=== PATIENT | female | born 1945 | race Caucasian/White ===

== ENCOUNTER 2021-06-24 08:31 | Outpatient (REF) | payer MEDICARE, SELFPAY | END 2021-06-24 08:32 | disposition home or self-care (01) | LOC: HO.HOSX 08:31 | PROVIDERS: Visit Provider Orthopaedic Surgery | DX: Z13.89 Encounter for screening for other disorder (principal) ==

== ENCOUNTER → 2021-06-29 14:54 | Outpatient (BNVA) | payer MEDICARE, OTHER, SELFPAY | PROVIDERS: PCP Family Medicine; Visit Provider Internal Medicine | DX: M79.18 Myalgia, other site (principal); S46.811A Strain of other muscles, fascia and tendons at shoulder and upper arm level, right arm, initial encounter; M47.816 Spondylosis without myelopathy or radiculopathy, lumbar region | CPT/HCPCS: 20553 ==

== ENCOUNTER → 2021-10-09 15:54 | Outpatient (BNVA) | payer MEDICARE, OTHER, SELFPAY | PROVIDERS: PCP Family Medicine; Visit Provider Nurse Practitioner Family | DX: M79.18 Myalgia, other site (principal); S46.811A Strain of other muscles, fascia and tendons at shoulder and upper arm level, right arm, initial encounter; M47.816 Spondylosis without myelopathy or radiculopathy, lumbar region | CPT/HCPCS: 20552; 99212 ==

== ENCOUNTER → 2021-12-28 15:24 | Outpatient (BNVA) | payer MEDICARE, OTHER, SELFPAY | PROVIDERS: PCP Family Medicine; Visit Provider Internal Medicine | DX: M47.816 Spondylosis without myelopathy or radiculopathy, lumbar region (principal); M47.812 Spondylosis without myelopathy or radiculopathy, cervical region | CPT/HCPCS: 99212 ==

== ENCOUNTER 2024-08-01 13:03 | Outpatient (AMB) | payer MEDICARE, OTHER, SELFPAY ==
--- NOTE | 2024-08-01 13:53 | MHC.OFFVIS ---
Intake Visit Reasons: FC- Right wrist fx DOI 07/23/24 Intake Note: Benjamin 79 year old left hand dominant female presents today for a new patient visit for her right hand pain. States on 07/22/24 she slipped on ice and fell in an out stretched position. She was seen at [facility] Ed after the injury and then was later seen at [facility] where she was placed in a short arm cast after in office reduction. She was told that she would need surgery for the wrist but she is not interested in surgical intervention. Allergies No Known Allergies Allergy (Verified 08/01/24 13:59) HPI HPI FC- Right wrist fx DOI 07/23/24: Details: Benjamin is a 79 year old right hand dominant woman who presents for a right distal radius fracture, S/P fall on ice, DOI: 07/23/24. She was seen at [facility] ED and placed in a wrist splint, then was seen at [facility] where her wrist was reduced twice, and placed in a wrist cast. She says she is here for a second opinion as she was told at [facility] that she would need surgery, but she does not want surgery. She complains of some pain in her hand, along with stiffness in her fingers. She has hand osteoarthritis which makes it somewhat difficult to move her small finger. She says she cares for her disabled at home. COUNT INCLUDES THE [facility] Medical History (Updated 08/01/24 @ 13:59 by Arthur Sullivan) Lumbar spondylosis Review of Systems Const All systems reviewed & are unremarkable except as noted in HPI and below Physical Exam Const General: cooperative, healthy appearing and no acute distress Orientation/consciousness: patient oriented x3 HEENT Head: Yes normocephalic and Yes atraumatic Eyes EOM: EOMs intact bilaterally Resp Effort & Inspection: normal respiratory effort and able to speak in complete sentences Cardio Jugular venous distension: no JVD Skin General skin exam: turgor normal Rashes: no rashes Neuro General: patient oriented x3 Extrem Other: Evaluation of Right Upper Extremity: The patient is alert, oriented, and in no acute distress She is in a molded short-arm cast, which was placed at [facility] after their surgeon performed a closed reduction. Neuro: sensation is normal to the tips of all digits Vascular: Cap refill brisk ROM: With encouragement, she can make a weak fist and extend all her digits, except for her small finger which is limited due to her PIP arthritis The cast is clean dry and intact Radiographs: 3 views of the right wrist were taken and viewed by me today in clinic. They show a distal radius fracture with some shortening and loss of inclination on the AP view & ~20 degrees apex volar angulation seen on the lateral view. There is some evidence of interval bony healing. . Psych Appearance: grossly normal Affect: normal affect Attitude: cooperative Assessment & Plan Assessment & Plan (1) Fracture of right distal radius: Code(s): S52.501A - Unspecified fracture of the lower end of right radius, initial encounter for closed fracture Category: Medical Plan Assessment & Plan: 1. Right distal radius fracture, From a fall, DOI: 07/23/24 Reduced at [facility] I educated her about this condition I discussed operative and non-operative treatment options. At this point her fracture is 2 weeks old, and as of next week she would require a corrective osteotomy as opposed to an ORIF. She is not interested in surgery at this time as she cares for her disabled I recommend she remain in her cast and manage this non-operatively. I discussed the importance of maintaining her finger ROM while in her cast, she should work on ROM exercises 20x daily. She expressed understanding She is to lift nothing heavier than a cellphone for the next 4 weeks She should continue to follow with [facility] for management of her fracture. She can follow up with me prn Scribed for Rossana Banegas MD by Arthur Sullivan, medical chemist, on 08/01/24 at 3:00 PM, EST. Orders: Orders XR wrist RT min 3V Today M25.531 - Pain in right wrist Coding Level of Care Code New Pt Level 4 (95430) Diagnoses Fracture of right distal radius S52.501A
--- OUTSIDE RECORDS SUMMARY | 2024-08-01 14:27 | XMS_ITS | Clinical Summary ---
Author Organization [facility] Address [address] [place] [address] Phone Care Team Providers Care Shopping Inspector Name Role Phone Jimbo Hopkins Primary Care Provider [phone] Allergies No known active allergies Medications oxyCODONE (OXY-IR) 5 mg immediate release capsule Take 1 capsule (5 mg total) by mouth every 6 (six) hours if needed for severe pain. Max Daily Amount: 20 mg 30 capsule 5 Active acetaminophen (Tylenol Extra Strength) 500 mg tablet Take 1 tablet (500 mg total) by mouth every 6 (six) hours if needed for mild pain for up to 10 days. 30 tablet 5 08/03/19 25 Active ibuprofen (ADVIL,MOTRIN) 800 mg tablet Take 1 tablet (800 mg total) by mouth 3 (three) times a day. 90 each 5 08/24/19 25 Active oxyCODONE (OXY-IR) 5 mg immediate release capsule Take 1 capsule (5 mg total) by mouth every 6 (six) hours if needed for severe pain. Max Daily Amount: 20 mg 12 capsule 5 07/24/19 25 Discontinued Encounters Date Type Department Care Team Description 07/31/2024 1:45 PM EST Office Visit Orthopedic Surgery [facility] [address] [facility] [address] [place] [phone] Presley Pandey MD Follow-up exam (Primary Dx); Closed extra-articular fracture of distal end of right radius with malunion, subsequent encounter 07/24/2024 11:30 AM EST Office Visit Orthopedic Surgery [facility] [address] [facility] [address] [place] [phone] Presley Pandey MD Right wrist pain (Primary Dx); Closed fracture of right distal radius and ulna, initial encounter 07/23/2024 1:56 AM EST - 07/23/2024 7:08 AM EST Emergency [facility] Emergency [address] [place] [phone] Glenroy Palacio MD Closed fracture of right wrist, initial encounter (Primary Dx) Discharge Disposition: Home or Self Care 07/23/2024 Telephone Orthopedic Surgery [facility] [address] [facility] [address] [place] [phone] [facility] 06/25/2024 2:24 PM EST - 06/25/2024 11:59 PM EST Hospital Encounter [facility] at [address] [phone] Breast calcification, right Discharge Disposition: Home or Self Care 06/04/2024 1:47 PM EST - 06/04/2024 11:59 PM EST Hospital Encounter [facility] [address] [phone] Encounter for screening mammogram for breast cancer Discharge Disposition: Home or Self Care from Last 3 Months Social History Tobacco Use Types Packs/Day Years Used Date Smoking Tobacco: Never Assessed Comments No Sex and Gender Information Value Date Recorded Sex Assigned at Female 05/28/2024 11:43 AM EST Legal Sex Female 10:13 AM EST Gender Identity Female 05/28/2024 11:43 AM EST Sexual Orientation Straight 05/28/2024 11 :43 AM EST Obstetrics History Para Term AB IAB SAB Ectopic Multiple Livin g Live Births 1 Last Filed Vital Signs Vital Sign Reading Time Taken Comments Blood Pressure 167/74 07/23/2024 1:43 AM EST Pulse 90 07/23/2024 1:43 AM EST Temperature 36.3 ??C (97.3 ??F) 07/23/2024 1:43 AM ES T Respiratory Rate 18 07/23/2024 1:43 AM EST Oxygen Saturation 97% 07/23/2024 1:43 AM EST Inhaled Oxygen Concentration - - Weight 66.7 kg (147 lb) 07/31/2024 1:37 PM EST Height 170.2 cm (5' 7.01 ) 07/31/2024 1:37 PM ES T Body Mass Index 23.02 07/31/2024 1:37 PM EST Plan of Treatment Upcoming Encounters Date Type Department Care Team (Late st Contact Info) Description 08/07/2024 4:00 PM EST Office Visit Orthopedic Surgery - [place] [address] [facility] [address] [place] [phone] Presley Pandey MD [address] [facility] [address] [place] [address] Health Maintenance Due Date Last Done Comments DTaP,Tdap,and Td Vaccines (1 - Tdap) 1964 Pneumococcal Vaccine: 50+ Years (2 of 2 - PPSV23) 06/27/2015 05/02/2015 Zoster Vaccines (2 of 3) 04/29/2016 03/04/2016 RSV Immunization Patients 60 + Years Old (1 - 1-dose 75+ series) 2021 Cholesterol Screening (Lipid Panel) 05/23/2022 Depression Screening 05/23/2022 Falls Risk Assessment 05/23/2022 Hepatitis C Screening 05/23/2022 Medicare Annual Wellness Visit 05/23/2022 Osteoporosis Screening (Bone Density Screening) 05/23/2022 Social Influencers of Health Screening 05/23/2022 COVID-19 Vaccine (3 - 2023-2 5 season) 2024 05/29/2021, 11/05/2020 Influenza Vaccine (#1) 2024 3, 03/12/2011 HIB Vaccines Aged Out No longer eligi ble based on patient's age to complete this topic HPV Vaccines Aged Out No longer eligi ble based on patient's age to complete this topic Hepatitis A Vaccines Aged Out No long er eligible based on patient's age to complete this topic Hepatitis B Vaccines Aged Out No long er eligible based on patient's age to complete this topic IPV Vaccines Aged Out No longer eligi ble based on patient's age to complete this topic MMR Vaccines Aged Out No longer eligi ble based on patient's age to complete this topic Meningococcal ACWY Vaccine Aged Out N o longer eligible based on patient's age to complete this topic Meningococcal B Vacine Aged Out No lo nger eligible based on patient's age to complete this topic RSV Immunization Patients Under 20 months Aged Out No longer eligible b ased on patient's age to complete this topic Varicella Vaccines Aged Out No longer eligible based on patient's age to complete this topic Procedures Procedure Name Priority Date/Time Associated Diagnosis Comments CAST APPLICATION Routine 07/31/2024 5:06 PM EST Closed extra-articular fracture of distal end of right radius with malunion, subsequent encounter XR WRIST 3+ VIEWS RIGHT Routine 07/31/2024 1:43 PM EST Follow-up exam CAST APPLICATION Routine 07/24/2024 1:16 PM EST Closed fracture of right distal radius and ulna, initial encounter XR WRIST 3+ VIEWS RIGHT Routine 07/24/2024 12:44 PM EST Right wrist pain XR WRIST 3+ VIEWS RIGHT Routine 07/24/2024 11:32 AM EST Right wrist pain HC TREATMENT FRACTURE W/MANIPULATION Routine 07/23/2024 6:26 AM EST AL CLOSED TX DISTAL RADIUS FRACTURE/EPIPHYSEAL SEPARATION W/ MANIPULATION Routine 07/23/2024 6:[address] HEAD WO CONTRAST STAT 07/23/2024 3 :24 AM EST XR WRIST 3+ VIEWS RIGHT STAT 07/23/2024 1:57 AM EST MG MAMMO DIAGNOSTIC ADDL VIEWS RIGHT Routine 06/25/2024 3:12 PM EST Breast calcification, right MG MAMMO DIGITAL SCREENING W ASTON BILAT Routine 06/04/2024 2:11 PM EST Encounter for screening mammogram for breast cancer from Last 3 Months Results * Casting (07/31/2024 5:06 PM EST) Presley Farah MD - 07/31/2024 5:06 PM EST Presley Pandey MD ? 07/31/2024 ??5:08 PM Casting Date/Time: 07/31/2024 5:06 PM Performed by: Presley Pandey MD Authorized by: Presley Pandey MD Consent given by: patient Timeout: Immediately prior to procedure a time out was called to verify the correct patient, procedure, equipment, sales support associate and site/side marked as required Injury Location details: right wrist Fracture type: distal radial fracture ?? Pre-procedure assessment Distal perfusion: normal ?? Distal sensation: normal ?? Range of motion: reduced ?? Procedure Manipulation performed? manipulation performed (3 point mold and axial traction) Immobilization: cast Cast type: short arm Post-procedure assessment Distal perfusion: normal Distal sensation: normal Range of motion: unchanged Patient tolerance: patient tolerated the procedure well with no immediate complications Presley Pandey MD IN CLINIC/BEDSIDE ORDERABLES Fin al Result * XR Wrist 3+ Views Right (07/31/2024 1:43 PM EST) Only the most recent of4 resultswithin the time period is included. Anatomical Region Laterality Modality Upper Extremities, Wrist Right Compute d Radiography Narrative 07/31/2024 4:57 PM EST Three-view x-ray of the right wrist shows previously visualized distal radius fracture with dorsal comminution, there is interval dorsal angulation in the cast with approximately 25 degrees of dorsal angulation increased from 13 degrees of dorsal angulation. ??There is previously visualized ulnar styloid fracture, no other fractures appreciated. ??Cast material obscures fine osseous detail. Repeat x-rays in a new cast show a improved mold but there is persistent 21 degrees of dorsal angulation. Impression: Extra-articular distal radius fracture with increased dorsal angulation from radiographs obtained 07/24/2024 us Presley Pandey MD IMG XR PROCEDURES Final Result * Casting (07/24/2024 1:16 PM EST) Presley Farah MD - 07/24/2024 1:16 PM EST Presley Pandey MD ? 07/24/2024 ??5:00 PM Casting Date/Time: 07/24/2024 1:16 PM Performed by: Presley Pandey MD Authorized by: Presley Pandey MD Consent given by: patient Injury Location details: right forearm Pre-procedure assessment Distal perfusion: normal ?? Distal sensation: normal ?? Range of motion: reduced ?? Procedure Manipulation performed? manipulation performed Immobilization: cast Cast type: short arm Supplies used: Ortho-Glass Post-procedure assessment Distal perfusion: normal Distal sensation: normal Range of motion: improved Patient tolerance: patient tolerated the procedure well with no immediate complications us Presley Pandey MD IN CLINIC/BEDSIDE ORDERABLES Fin al Result * AL CLOSED TX DISTAL RADIUS FRACTURE/EPIPHYSEAL SEPARATION W/ MANIPULATION, HC TREATMENT FRACTURE W/MANIPULATION (07/23/2024 6:26 AM EST) Glenroy Stokes MD - 07/23/2024 6:26 AM EST Glenroy Palacio MD ? 07/23/2024 ??6:27 AM Orthopedic Injury Treatment - Fracture Date/Time: 07/23/2024 6:26 AM Performed by: Glenroy Palacio MD Authorized by: Glenroy Palacio MD ?? Consent: ??Consent obtained: ??Verbal ??Consent given by: ??Patient ??Risks, benefits, and alternatives were discussed: yes ?Risks discussed: ??Pain and nerve damage [place] protocol: ??Procedure explained and questions answered to patient or proxy's satisfaction: yes ?Imaging studies available: yes ?Site/side marked: yes ?Immediately prior to procedure, a time out was called: yes ?Patient identity confirmed: ??Verbally with patient and arm band Injury: ??Injury location: ??Forearm ??Forearm injury location: ??R forearm ??Forearm fracture type: distal radial ?? Pre-procedure details: ??Distal neurologic exam: ??Normal ??Distal perfusion: distal pulses strong ?Range of motion: reduced ?? Sedation: ??Sedation type: ??None Anesthesia: ??Anesthesia method: ??Local infiltration ??Local anesthetic: ??Lidocaine 1% w/o epi Procedure details: ??Manipulation performed: yes ?Skin traction used: no ?Skeletal traction used: yes ?Pin inserted: no ?Reduction successful: yes ?X-ray confirmed reduction: no ?Supplies used: ??Fiberglass Post-procedure details: ??Distal neurologic exam: ??Normal ??Distal perfusion: brisk capillary refill ?Range of motion: not applicable ?Procedure completion: ??Tolerated well, no immediate complications us Glenroy Palacio MD IN CLINIC/BEDSIDE ORDERABLES Fi nal Result * CT Head wo Contrast (07/23/2024 3:24 AM EST) Anatomical Region Laterality Modality Head and Neck Computed Tomogra phy 07/23/2024 3:43 AM EST Impressions 07/23/2024 3:43 AM EST 1. No acute intracranial findings. This document has been electronically signed by: Kristian Adler MD on 07/23/2024 03:43:15 Narrative 07/23/2024 3:[address] head without contrast Comparison: None Findings: No intra-axial mass, midline shift, hydrocephalus, or acute hemorrhage. Moderate atrophy like change. The visualized paranasal sinuses and mastoid air cells are normal. The orbits are unremarkable. There is no acute fracture. Procedure Note Kristian Adler MD - 07/23/2024 CT head without contrast Comparison: None Findings: No intra-axial mass, midline shift, hydrocephalus, or acute hemorrhage. Moderate atrophy like change. The visualized paranasal sinuses and mastoid air cells are normal. The orbits are unremarkable. There is no acute fracture. IMPRESSION: 1. No acute intracranial findings. This document has been electronically signed by: Kristian Miller MD on 07/23/2024 03:43:15 us Glenroy Palacio MD IMG CT PROCEDURES Final Result * MG Mammo Diagnostic Addl Views Right (06/25/2024 3:12 PM EST) Anatomical Region Laterality Modality Breast Right Mammography 06/25/2024 3:09 PM EST Impressions 06/25/2024 3:16 PM EST Probably benign tightly grouped coarse calcifications right breast. ?? Probably benign calcifications should be reexamined in 6 months with diagnostic right mammography including spot magnified views Findings and recommendations were relayed to the patient on the day of the exam ASSESSMENT: ?? BI-RADS 3: PROBABLY BENIGN RECOMMENDATION(S): 1: Special mammographic view(s) needed RIGHT in 6 months. -------- FINAL REPORT -------- Dictated By: Ifeanyi Everett Dictated Date: 06/25/2024 15:09 ET Assigned Physician: Ifeanyi Everett Reviewed and Electronically Signed By: Ifeanyi Everett Signed Date: 06/25/2024 15:16 ET Workstation ID: [id number] Transcribed By: Self Edit Transcribed Date: 06/25/2024 15:09 ET Narrative 06/25/2024 3:16 PM EST EXAM: ??DIAGNOSTIC MAMMOGRAPHY, UNILATERAL RIGHT HISTORY: ??Abnormal screening mammogram. ??Incompletely characterized calcifications right breast. COMPARISON: ??Right mammography 06/04/2024, 05/30/2023, 05/21/2022, 05/18/2021, 05/14/2020 TECHNIQUE: Spot magnified views of the right breast in multiple projections ADDITIONAL IMAGING: None Computer aided detection was not utilized. TISSUE DENSITY: The breasts are heterogeneously dense, which may obscure small masses. (BI-RADS category C) FINDINGS: RIGHT BREAST: There are tightly grouped coarse calcifications in the 10 o'clock position 6 cm from the right nipple. ??There have been calcifications in this area on multiple previous studies. ??There is no associated distortion or suspicious mass. There are no branching forms. Procedure Note Ifeanyi Everett MD - 06/25/2024 EXAM: DIAGNOSTIC MAMMOGRAPHY, UNILATERAL RIGHT HISTORY: Abnormal screening mammogram. Incompletely characterizedcalcifications right breast. COMPARISON: Right mammography 06/04/2024, 05/30/2023, 05/21/2022,05/18/2021, 05/14/2020 TECHNIQUE: Spot magnified views of the right breast in multipleprojections ADDITIONAL IMAGING: None Computer aided detection was not utilized. TISSUE DENSITY: The breasts are heterogeneously dense, which may obscuresmall masses. (BI-RADS category C) FINDINGS: RIGHT BREAST: There are tightly grouped coarse calcifications in the 10 o'clock position6 cm from the right nipple. There have been calcifications in this areaon multiple previous studies. There is no associated distortion orsuspicious mass. There are no branching forms. IMPRESSION: Probably benign tightly grouped coarse calcifications right breast. Probably benign calcifications should be reexamined in 6 months withdiagnostic right mammography including spot magnified views Findings and recommendations were relayed to the patient on the day of theexam ASSESSMENT: BI-RADS 3: PROBABLY BENIGN RECOMMENDATION(S): 1: Special mammographic view(s) needed RIGHT in 6 months. -------- FINAL REPORT -------- Dictated By: Ifeanyi Everett Dictated Date: 06/25/2024 15:09 ET Assigned Physician: Ifeanyi Everett Reviewed and Electronically Signed By: Ifeanyi Everett Signed Date: 06/25/2024 15:16 ET Workstation ID: [id number] Transcribed By: Self Edit Transcribed Date: 06/25/2024 15:09 ET Jimbo Hopkins DO IMG BI PROCEDURES Final Result * (ABNORMAL) MG Mammo Digital Screening w Saton bilat (06/04/2024 2:11 PM EST) Anatomical Region Laterality Modality Breast Bilateral Mammography 06/06/2024 12:4 2 PM EST Impressions 06/06/2024 12:53 PM EST Increasing calcifications in the right upper outer breast. ??Additional imaging recommended. BI-RADS CATEGORY: 0 - INCOMPLETE - NEED ADDITIONAL IMAGING EVALUATION RECOMMENDATION: Additional right breast imaging recommended. ?? Mammo Location: [facility], [address] [place] [address], [id number], . -------- FINAL REPORT -------- Dictated By: HARJIT BARKLEY Dictated Date: 06/06/2024 12:42 ET Assigned Physician: HARJIT BARKLEY Reviewed and Electronically Signed By: HARJIT BARKLEY Signed Date: 06/06/2024 12:53 ET Workstation ID: [id number] Transcribed By: Self Edit Transcribed Date: 06/06/2024 12:42 ET Narrative 06/06/2024 12:53 PM EST CLINICAL: 79 years old, Female, routine annual exam. COMPARISON: 05/30/2023 through 05/14/2020 ?? TECHNIQUE: Bilateral MLO and CC views were obtained digitally with 3-D mammogram (digital breast tomosynthesis). Computer-aided detection was utilized in evaluation of this exam (CAD). FINDINGS: There is no evidence of suspicious mass or architectural distortion. ??Calcifications are identified in the upper outer quadrant of the right breast. ??These have increased as compared to studies dating back to 2019. ??Spot magnification views and a full field true lateral is recommended of the right breast. The left breast is mammographically stable. BREAST DENSITY: C - The breasts are heterogeneously dense which may obscure small masses. Procedure Note Harjit Barkley MD - 06/06/2024 CLINICAL: 79 years old, Female, routine annual exam. COMPARISON: 05/30/2023 through 05/14/2020 TECHNIQUE: Bilateral MLO and CC views were obtained digitally with 3-Dmammogram (digital breast tomosynthesis). Computer-aided detection wasutilized in evaluation of this exam (CAD). FINDINGS: There is no evidence of suspicious mass or architectural distortion.Calcifications are identified in the upper outer quadrant of the rightbreast. These have increased as compared to studies dating back to 2019.Spot magnification views and a full field true lateral is recommended ofthe right breast. The left breast is mammographically stable. BREAST DENSITY: C - The breasts are heterogeneously dense which mayobscure small masses. IMPRESSION: Increasing calcifications in the right upper outer breast. Additionalimaging recommended. BI-RADS CATEGORY: 0 - INCOMPLETE - NEED ADDITIONAL IMAGING EVALUATION RECOMMENDATION: Additional right breast imaging recommended. Mammo Location: [facility], [address] [place] [address], [id number], . -------- FINAL REPORT -------- Dictated By: HARJIT BARKLEY Dictated Date: 06/06/2024 12:42 ET Assigned Physician: HARJIT BARKLEY Reviewed and Electronically Signed By: HARJIT BARKLEY Signed Date: 06/06/2024 12:53 ET Workstation ID: [id number] Transcribed By: Self Edit Transcribed Date: 06/06/2024 12:42 ET us Self Referral Sppl IMG BI PROCEDURES Final Resul t from Last 3 Months Insurance MEDICARE [facility] Care Teams Shopping Inspector Relationship Specialty Start Date End Date Jimbo Hopkins DO [address] [place] [address] PCP - General Family Medicine 05/28/24
--- OUTSIDE RECORDS SUMMARY | 2024-08-01 14:27 | XMS_ITS | Data Portability ---
Author Organization [place] [facility] Address [address] [place] [phone] Care Team Providers Care Lumber Piler Operator Name Role Phone GRANT GRAVES Primary Care Provider [phone] Assessment Encounter Date Assessment Date Assessment LastModified by Organization Details LastModified Time 07/12/2021 07/12/2021 Ms. Zimmerman is a 76 yr old female new to , who was in her usual state of good health until about a week ago she began having left frontal sinus pain, some congestion feeling but unable to blow out any mucous, She also began having intermittent left ear pain that became more consistent abut 5 days ago, has a cough, dry, and now has had a fever with chills. She has been vaccinated and received a booster for COVID already. She has not had any known exposures. DDX includes but is not limited to: Pneumonia, a possibility, with a dry cough, and temperature of 101, we will order xray and she will set up with [facility] to r/o pneumonia. Sinusitis, is a possibility, although she has been symptomatic for only a week, she has left frontal and maxillary sinus tenderness to palpation. There are no scalp / facial lesions to suggest Shingles, however I did check thoroughly for signs of rash to scalp, face, and external nose and ear. none were present. She did have a dull erythematous left TM suggestive of Otitis media and will take Augmentin 875 BID, along with Mucinex 1200 mg BID . A Covid test was done (PCR), she will sign up for portal to check results and was advised we will call her only if a positive result. She is to rest, tylenol for fever, Time On Scene with Patient: 00:28:43 [email or web address] Not available 07/12/2021 12:19:07 Plan of Treatment Reminders Order Date Submit Date Provider Last Modified By Organization Details Last Modified Time Details Appointments None recorded. Lab unlisted lab - covid-19 (novel coronavirus ) PCR 2021 [facility], [address], [place], [address], 17:39:56 Referral None recorded. Procedures None recorded. Surgeries None recorded. Imaging XR, chest, 2 view - r/o pneumonia, fever 101. cough 2021 [facility] ([facility] [employer]), [address], [place], [address], 22:18:57 Medication Orders benzonatate 200 mg capsule 2021 [facility], [address] [place], [address], 12:20:01 benzonatate 200 mg capsule 2021 [facility], [address] [place], [address], 12:19:59 amoxicillin 875 mg-potassiu m clavulanate 125 mg tablet 2021 [facility], [address] [place], [address], 11:49:18 Patient TargetsNo targets recorded. Patient InstructionsNo instructions recorded. Reason for Referral None Reported. Results Created Date Observation Date Name Description Value Unit Range Abnormal Flag Note LastModifiedBy Organization Detail LastModifiedTime 07/12/1907/15/20212018 NOVEL CORON AVIRU S, PCR covid-19, PCR NOT DETEC DHRUV Refer ence range : NOT DETEC DHRUV (NOTE ) A Not Detec dhruv resul t means that SARS- CoV-2 RNA was not prese nt in the speci men above the limit of detec tion. A Not Detec dhruv resul t does not rule out the possi bilit y of COVID -19 and shoul d not be used as the sole basis for treat ment or patie nt manag ement decis ions. If COVID -19 is still suspe cted, based on expos ure histo ry toget her with other clini bear findi ngs, re-te sting shoul d be consi dered in the curtis xt of clini bear obser vatio ns and epide miolo gical data for patie nt manag ement decis ions. = Test Metho d: Nucle ic Acid Ampli ficat ion Test inclu ding rever se trans cript ion polym erase chain react ion (RT-P CR) and trans cript ion media dhruv ampli ficat ion (TMA) . The test metho d meets the [place] Cente rs for Disea se Contr ol and preve ntion ([facility]) pre depar ture and arriv al requi remen t for viral test for COVID -19 dated 2020. Testi ng requi remen ts for everardo lockhart october dela cruz e with time. The patie nt is respo nsibl e for deter minin g the test requi remen ts for each natio n while they are travcharo ling. This test has been autho rized by the FDA under an Emerg ency Use Autho rizat ion (EUA) for use by autho rized labor atori es. = Pleas e revie w the Fact Sheet s and FDA autho rized label ing avail able for healt h care provi ders and patie nts using the follo wing websi diana: https ://marie w.que stdia gnost ics.c om/ho me/Co vid-1 9/HCP /Ques tIVD/ fact- sheet .html https ://marie w.que stdia gnost ics.c om/ho me/Co vid-1 9/Pat ients / [facility] IVD/f act-s heet. html = Due to the curre nt publi c healt h emerg ency, [facility] Diagn ostic s is accep ting sampl es from appro priat e clini bear sourc es colle cted using wide varie ty of swabs and trans port media for COVID -19. Not detec dhruv test resul ts deriv ed from speci mens recei clementina in non- comme rcial ly manuf actur ed viral colle ction kits or those not yet autho rized by FDA for COVID -19 testi luisa montiel d be cauti ously evalu ated and take extra preca ution s such as addit ional clini bear monit oring , inclu ding colle ction of an addit ional speci men. = Addit ional infor matsavanna n about COVID -19 can be found at the [employer] ostic s websi te: www.alike uestD [employer]/ Covid 19. Test Perfo rmed by: [employer], [address], [place]. [address] . Labor atory Direc tor: Dian ramirez MD. Not Available [facility] [address], [place], [address], 07/16/2021 00:03:28 07/15/19 22 XR, chest , 2 view No observ ation record ed. [place] [address] [facility] [facility] [employer]) [address] [place], [address], 07/16/2021 17:56:20 Result Notes None recorded. Procedures Surgical History None recorded. Imaging Results Imaging Date Name Status LastModified by Organiz ation Details LastModified Time 07/15/2021 XR, chest, 2 view completed [email or web address] [employer] [facility] ([facility] [employer]) [address] [place], [address], 07/16/2021 17:56:20 Procedure Notes None recorded. Medical Equipment None Reported. Allergies No known drug allergies Medications Name Sig Start Date Stop Date Status Note LastModified by Organization Details LastModified Time tizanidine 2 mg tablet active Not Available Not Available Not Available benzonatate 200 mg capsule Take 1 capsule 3 times a day by oral route as directed for 5 days. active Not Available Not Available No t Available amoxicillin 875 mg tablet active Not Available Not Available Not Available prednisolon e acetate 1 % eye drops,suspe nsion active Not Available Not Available Not Available estradiol 1 mg tablet active Not Available Not Available No t Available temazepam 30 mg capsule active Not Available Not Available Not Available omeprazole 20 mg capsule,del ayed release active Not Available Not Available Not Available lorazepam 1 mg tablet active Not Available Not Available No t Available estradiol 0.01% (0.1 mg/gram) vaginal cream active Not Available Not Available Not Available amoxicillin 875 mg-potassiu m clavulanate 125 mg tablet Take 1 tablet every 12 hours by oral route as directed for 7 days. active Not Available Not Available No t Available Ventolin HFA 90 mcg/actuati on aerosol inhaler active Not Available Not Available Not Available rosuvastati n 5 mg tablet 07/12 completed Not Available Not Available Not Available escitalopra m 5 mg tablet 07/12 completed Not Available Not Available Not Available Vitals Date Recorded Body temperature Oxygen saturation Oxygen saturation in Arterial blood by Pulse oximetry Heart rate Respiratory rate Systolic blood pressure Diastolic blood pressure Provider Name and Address Organization Details Last Updated DateTime 2 101.1 [degF] 96 % 96 % 76 /min 16 /min 124 mm[Hg] 80 mm[Hg] Not Available [facility] 11:38:51 Social History Question Answer Notes LastModified by Organizat ion Details LastModified Time Tobacco Smoking Status Never Smoker CARINA Tan [address], [place], [address], [place] [facility] 07/12/2021 11:36:43 What Is Your Level Of Alcohol Consumption? Occasional Information not available 07/12/2021 What Is Your Code Status? Full Code [email or web address] Information not available 07/12/2021 Within The Past 12 Months, Has It Happened That The Food You Bought Just Didn't Last And You Didn't Have Money To Get More. No [email or web address] Information not available 07/12/2021 Within The Past 12 Months, Have You Worried That Your Food Would Run Out Before You Got Money To Buy More. No [email or web address] Information not available 07/12/2021 Fall Risk: Do You Feel Unsteady When Standing Or Walking? No [email or web address] Information not available 07/12/2021 We Know That How And When People Interact With Friends And Family Can Be Very Different From Person To Person. How Often Do You Have The Opportunity To See Or Talk To People That You Care About And Feel Close To? (Ex: Talking To Friends On The Phone Or Visiting Friends Or Family Or Going To Methodist Or Club Meetings) 5 Or More Times Per Week [email or web address] Information not available 07/12/2021 Excessive Alcohol Or Drug Use No [email or web address] Information not available 07/12/2021 Does This Patient Have A PCP? Yes [email or web address] Information not available 07/12/2021 We Know From Many Of Our Patients That Covering All Of Their Costs Can Be Difficult At Times. This Can Cause Stress And Impact Health. In The Past Year, Have You Been Unable To Get Any Of The Following When It Was Really Needed? No [email or web address] Information not available 07/12/2021 Would You Like Help Connecting To Resources? None [email or web address] Information not available 07/12/2021 Do You Use Any Illicit Or Recreational Drugs? No [email or web address] Information not available 07/12/2021 Do You Or Have You Ever Used Any Other Forms Of Tobacco Or Nicotine? No [email or web address] Information not available 07/12/2021 Sex: Unknown Functional Status None recorded. Mental Status None recorded. Family History Nothing Reported Notes:Father heart disease, Brother Colon cancer Medical History Condition Response Diabetes N Coronary Artery Disease N CHF N Parkinson's Disease N Cancer N Stroke N Dementia N Hypothyroidism N COPD Asthma N Depression N High Cholesterol Y Rheumatoid Arthritis N Pulmonary Embolism N Hypertension N A-fib N Osteoporosis Y Kidney Disease N Gynecological HistoryNo gynecological history recorded. Obstetrics History GPAL:G 0 P 0 0 0 0 Past Encounters Encounter ID Performer Location Encounter Start Date Encounter Closed Date Diagnosis/Indication Diagnosis SNOMED-CT Code Diagnosis ICD10 Code Diagnosis Note [id number] CARINA Tan [facility] [address] [facility] [place] [address] 07/12/2021 11:18:52 07/15/2021 08:46:46 Acute left otitis media 946783033 H66.92 increase fluids take antibiotic as directed. Fever 122740941 R50.9 tylenol for fever, increase fluids, restMucine x for sinus/ches t congestion . 1200 mg tablets twice a dayGiven ED precaution s Exposure t o communicable disease 208863271 Z20.822 will call you if the COVID test is positive, we will not call you if negative. Dry cough 10308375 R05.9 dry cough and temperatur e of 101, no pain with respiratio n,no back pain. will get chest xray to r/o pneumonia. Mucinex 1200 mg BID to break up any congestion . PE, no rhonchi, wheezes or rales hear, Health Concerns Section Related Observation LastModified by Organization Detai ls LastModified Time None Recorded Concern Status LastModified by Organization Details LastModified Time None Recorded Advance Directives Directive None Recorded Payers Encounter Date Sequence Insurance Name Policy Number Policy Berrios Covered Member ID Berrios Member ID Guarantor Name 07/12/2021 1 [place]: [employer] Vale Zimmerman [id number] 2 Vale Kolb Erasmo 07/12/2021 2 [facility] (MEDICARE SUPPLEMENT) Vale Bills Erasmo [id number] Vale Kolb Erasmo Notes Date Note Type Note Provider Name and Address Organization Details Recorded Time 07/12/2021 text/html Ms. Zimmerman is new to .She was in her usual state of good health until about a week ago, fever, left ear ache, left upper teeth hurt. She has sinus pain left frontal and maxillary area. She is unable to blow any mucous. She has had history of sinus infection.She has cough, dry, CARINA Tan [address], [place], [address], [place] [facility] 07/14/2021 11:16:49 OBGyn Episode No OBEpisode recorded.
--- OUTSIDE RECORDS SUMMARY | 2024-08-01 14:27 | XMS_ITS | Encounter Summary ---
Author Organization [facility] Address [address] [place] [address] Care Team Providers Care Document Design Specialist Name Role Phone Jimbo Hopkins Primary Care Provider [phone] Reason for Visit * Reason Comments Hand Pain Fu rt hand Encounter Details Date Type Department Care Team (Late st Contact Info) Description 07/31/2024 1:45 PM EST Office Visit Orthopedic Surgery - [place] [address] [place] [phone] Presley Pandey MD [address] [place], [place] [id number] Follow-up exam (Primary Dx); Closed extra-articular fracture of distal end of right radius with malunion, subsequent encounter Social History Tobacco Use Types Packs/Day Years Used Date Smoking Tobacco: Never Assessed Comments No Sex and Gender Information Value Date Recorded Sex Assigned at Female 05/28/2024 11:43 AM EST Legal Sex Female 10:13 AM EST Gender Identity Female 05/28/2024 11:43 AM EST Sexual Orientation Straight 05/28/2024 11 :43 AM EST documented as of this encounter Last Filed Vital Signs Vital Sign Reading Time Taken Comments Blood Pressure - - Pulse - - Temperature - - Respiratory Rate - - Oxygen Saturation - - Inhaled Oxygen Concentration - - Weight 66.7 kg (147 lb) 07/31/2024 1:37 PM EST Height 170.2 cm (5' 7.01 ) 07/31/2024 1:37 PM ES T Body Mass Index 23.02 07/31/2024 1:37 PM EST documented in this encounter Functional Status * Are you deaf or do you have serious difficulty hearing? Answer Date of Assessment Author No 07/23/2024 2:25 AM Carolyne Queen RN * Are you blind or do you have serious difficulty seeing, even when wearing glasses? Answer Date of Assessment Author No 07/23/2024 2:25 AM Carolyne Queen RN * Do you have serious difficulty walking or climbing stairs? Answer Date of Assessment Author No 07/23/2024 2:25 AM Carolyne Queen RN * Do you have serious difficulty dressing or bathing? Answer Date of Assessment Author No 07/23/2024 2:25 AM Carolyne Queen RN * Because of a physical, mental, or emotional condition, do you have serious difficulty doing errandsalone such as visiting the doctor? Answer Date of Assessment Author No 07/23/2024 2:25 AM Carolyne Queen RN documented as of this encounter Mental Status * Because of a physical, mental, or emotional condition, do you have serious difficulty concentrating, remembering, or making decisions? (5 years old or older) Answer Entry Date Author No 07/23/2024 2:25 AM Carolyne Queen RN documented in this encounter Progress Notes * Presley Pandey MD - 07/31/2024 1:45 PM ESTAssociated Order(s): Casting Post-Procedure Diagnose(s): Closed extra-articular fracture of distal end of right radius with malunion, subsequent encounter Date: July 29, 2024 Diagnosis: right distal radius fracture sustained 07/23/24 being treated nonoperatively (patient declined surgical treatment) Last seen: 07/24/24 HPI: Vale Zimmerman is a 79 y.o. female presenting for followup regarding her above injury. She says that she build to maintain her cast clean dry and intact and has not had any new falls or injuries. She does not have any significant discomfort on her cast and has not had any numbness or tingling. Objective Focused Exam: Right Upper Extremity Cast is clean dry and intact, cast appears loose around the forearm past related to her decreased swelling and possibly related to decreased swelling or compression of the Webril padding After reviewing her radiographs and discussing her displacement we recommended we casting with a repeat mold to avoid further displacement if we continue with nonoperative treatment. Cast was removed Skin is intact without evidence of breakdown Fires EPL/FPL/FDP/IO/APB SILT M/R/U palpable radial pulse A short arm cast was again applied while ulnar deviation and axial traction was held and a 3 point mold was performed. Imaging: Three-view x-ray of the right wrist shows previously visualized distal radius fracture with dorsal comminution, there is interval dorsal angulation in the cast with approximately 25 degrees of dorsalangulation increased from 13 degrees of dorsal angulation. There is previously visualized ulnar styloid fracture, no other fractures appreciated. Cast material obscures fine osseous detail. Repeat x-rays in a new cast show a improved mold but there is persistent 21 degrees of dorsal angulation. Impression: Extra-articular distal radius fracture with increased dorsal angulation from radiographs obtained 07/24/2024 Medical Decision Making (base on 2 out of 3 elements): Problems Addressed: Low- 1 stable acute illness Tests Ordered and/or Reviewed: Low Risk Level: Moderate risk: counseling regarding moderate risk procedure Assessment: Vale Zimmerman presents with follow-up for her extra-articular distal radius fracture with significant dorsal angulation which she is electing to treat nonoperatively. We again discussed that her unstable distal radius fracture which has shown some interval displacement. We counseled her on operative and nonoperative treatment and again recommended operative treatment to avoid continued displacement and persistent deformity. 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 We again discussed that she may develop a malunio n with deformity and loss of hand and wrist function including possible difficulty with pronation supination. She voiced understanding but would like to continue with nonop treatment We discussed that as she has had some persistent dorsal angulation and her cast appears loose we could be Castera. We discussed that an attempted we reduction could be made however it is likely that she would we displace and may not have significant improvement in alignment as she is not a week from injury. She would like to have a new cast and we provided her with a new cast with a 3 point well today. X-rays were repeated in her new cast. Casting Date/Time: 07/31/2024 5:06 PM Performed by: Presley Pandey MD Authorized by: Presley Pandey MD Consent given by: patient Timeout: Immediately prior to procedure a time out was called to verify the correct patient, procedure, equipment, legal support manager and site/side marked as required Injury Location details: right wrist Fracture type: distal radial fracture Pre-procedure assessment Distal perfusion: normal Distal sensation: normal Range of motion: reduced Procedure Manipulation performed? manipulation performed (3 point mold and axial traction) Immobilization: cast Cast type: short arm Post-procedure assessment Distal perfusion: normal Distal sensation: normal Range of motion: unchanged Patient tolerance: patient tolerated the procedure well with no immediate complications Plan: Right distal radius fracture being treated nonoperatively -Short arm cast with 3 point mold reapplied - Follow-up 1 week with repeat x-rays - Nonweightbearing to the right upper extremity Presley Pandey MD documented in this encounter Plan of Treatment Upcoming Encounters Date Type Department Care Team (Late st Contact Info) Description 08/07/2024 4:00 PM EST Office Visit Orthopedic Surgery - [place] [address] [place] [phone] Presley Pandey MD [address] [facility] [address] [place] [address] documented as of this encounter Procedures Procedure Name Priority Date/Time Associated Diagnosis Comments CAST APPLICATION Routine 07/31/2024 5:06 PM EST Closed extra-articular fracture of distal end of right radius with malunion, subsequent encounter documented in this encounter Results * Casting (07/31/2024 5:06 PM EST) Presley Farah MD - 07/31/2024 5:06 PM EST Presley Pandey MD ? 07/31/2024 ??5:08 PM Casting Date/Time: 07/31/2024 5:06 PM Performed by: Presley Pandey MD Authorized by: Presley Pandey MD Consent given by: patient Timeout: Immediately prior to procedure a time out was called to verify the correct patient, procedure, equipment, legal support manager and site/side marked as required Injury Location [...] MD IN CLINIC/BEDSIDE ORDERABLES Fin al Result documented in this encounter Visit Diagnoses Diagnosis Follow-up exam- Primary Unspecified follow-up examination Closed extra-articular fracture of distal end of right radius with malunion, subsequent encounter documented in this encounter Care Teams Document Design Specialist Relationship Specialty Start Date End Date Jimbo Hopkins DO [address] [place], [place] PCP - General Family Medicine 05/28/24 documented as of this encounter
--- OUTSIDE RECORDS SUMMARY | 2024-08-01 14:27 | XMS_ITS | Encounter Summary ---
Author Organization [facility] Address [address] [place] [address] Care Team Providers Care It Desktop Support Technician Name Role Phone Hopkins, Gary Primary Care Provider [phone] Encounter Details Date Type Department Care Team (Late st Contact Info) Description 07/23/2024 Telephone Orthopedic Surgery - [place] [address] [facility] [address] [place] [phone] [facility] Social History Tobacco Use Types Packs/Day Years Used Date Smoking Tobacco: Never Assessed Comments No Sex and Gender Information Value Date Recorded Sex Assigned at Female 05/28/2024 11:43 AM EST Legal Sex Female 10:13 AM EST Gender Identity Female 05/28/2024 11:43 AM EST Sexual Orientation Straight 05/28/2024 11 :43 AM EST documented as of this encounter Functional Status * Are you deaf or do you have serious difficulty hearing? Answer Date of Assessment Author No 07/23/2024 2:25 AM EST Carolyne Hawkins RN * Are you blind or do you have serious difficulty seeing, even when wearing glasses? Answer Date of Assessment Author No 07/23/2024 2:25 AM EST Carolyne Hawkins RN * Do you have serious difficulty walking or climbing stairs? Answer Date of Assessment Author No 07/23/2024 2:25 AM EST Carolyne Hawkins RN * Do you have serious difficulty [...] documented in this encounter Progress Notes * [facility] - 07/23/2024 8:28 AM EST Outreach made to patient to schedule follow-up visit with Dr. Presley Pandey for her right wrist fracture. Voicemail was left for the patient to call the office back to schedule an appointment this week with Dr. Pandey. documented in this encounter Plan of Treatment Upcoming Encounters Date Type Department Care Team (Late st Contact Info) Description 08/07/2024 4:00 PM EST Office Visit Orthopedic Surgery - [place] [address] [facility] [address] [place] [phone] Presley Pandey MD [address] [facility] [address] [place] [address] documented as of this encounter Visit Diagnoses Not on filedocumented in this encounter Care Teams It Desktop Support Technician Relationship Specialty Start Date End Date Jimbo Hopkins DO [address] [place] [address] PCP - General Family Medicine 05/28/24 documented as of this encounter
--- OUTSIDE RECORDS SUMMARY | 2024-08-01 14:27 | XMS_ITS | Encounter Summary ---
Author Organization [facility] Address [address] [place] [address] Care Team Providers Care Photo Engraver Name Role Phone Jimbo Hopkins DO Primary Care Provider [phone] Reason for Referral * Consultation (Routine) - Closed Specialty Diagnoses / Procedures Referred By Adarhs palomino Referred To Contact Orthopaedics / Orthopaedic Surgery Diagnoses Closed fracture of right wrist Glenroy Palacio MD [address] [place] [id number] Phone: tel: fax: Presley Pandey MD [address] [address] Phone: tel: fax: Referral ID Status Reason Start Date Expiration Date V isits Requested Visits Authorized [id number] Closed Specialty Services Required 07/23/2024 07/23/2025 1 1 Reason for Visit * Reason Comments Wrist Injury Pt slipped and fell on ice. Obvious deformity to right wrist Encounter Details Date Type Department Care Team (Late st Contact Info) Description 07/23/2024 1:56 AM EST - 07/23/2024 7:08 AM EST Emergency [facility] Emergency [address] [place] [address] Glenroy Palacio MD [address] [place] [address] Closed fracture of right wrist, initial encounter (Primary Dx) Discharge Disposition: Home or Self Care Social History Tobacco Use Types Packs/Day Years [...] - - Weight 66.7 kg (147 lb) 07/23/2024 1:43 AM EST Height 170.2 cm (5' 7 ) 07/23/2024 1:43 AM EST Body Mass Index 23.02 07/23/2024 1:43 AM EST documented in this encounter Functional Status [...] 2:25 AM EST Carolyne Hawkins RN * Because of a physical, mental, or emotional condition, do you have serious difficulty doing errandsalone such as visiting the doctor? Answer Date of Assessment Author No 07/23/2024 2:25 AM EST Carolyne Hawkins RN documented as of this encounter Mental Status * Because of a physical, mental, or emotional condition, do you have serious difficulty concentrating, remembering, or making decisions? (5 years old or older) Answer Entry Date Author No 07/23/2024 2:25 AM EST Carolyne Hawkins RN documented in this encounter Discharge Instructions * Discharge Instructions* Glenroy Palacio MD - 07/23/2024 6:19 AM EST Follow-up with Dr. Pandey above in the next 5 to 7 days. A referral has been sent to their office,they should contact you. If you have not heard from anyone by Tuesday morning call their office. Take your pain medicine as prescribed. Alternate Tylenol and ibuprofen as needed for pain relief -Take 600 mg of ibuprofen every 6 hours (do not exceed 2400 mg in 24 hrs) -Take 1000 mg of Tylenol every 6 hours (do not exceed 4000 mg in 24 hrs) -Stack these on top of each other as discussed (ie: Ibuprofen at 9 AM, Tylenol at noon, ibuprofen at 3 PM, Tylenol at 6 PM, etc) Follow up with your primary provider. Call tomorrow for an appointment. Return to Emergency Department if your symptoms worsen, don't improve, or any other concerns. Get well soon! Thank you for coming to the [facility] Emergency Department today. Our entire team works together to provide you with the best care possible. Examination and treatment you received in the emergency department has been rendered on an EMERGENCY basis only. It is not intended to be a substitute for or an effort to provide complete medical care. You should follow-up with your primary care provider. Please report to your physician any new or remaining problems, because it is impossible to recognize and treat all elements of injury or illness in a single emergency department visit. In the event that you're unable to obtain a followup appointment in a timely fashion, OR you are not getting any better, OR you are getting worse, OR you develop any symptoms of concern, please return here immediately for further evaluation. The emergency department is open 24 hours a day, 7 days aweek. Your discharge report is based on information that was available when you were in the emergency department. * Attachments The following attachments cannot be sent through Care Everywhere. * Cast Care: Fiberglass ([place]) * Wrist Fracture ([place]) documented in this encounter Medications at Time of Discharge oxyCODONE (OXY-IR) 5 mg immediate release capsule Take 1 capsule (5 mg total) by mouth every 6 (six) hours if needed for severe pain. Max Daily Amount: 20 mg 12 capsule 07/23/2024 07/24/2024 documented as of this encounter Ordered Prescriptions Prescription Sig Dispense Quantity Refills Last Filled Start Date End Date oxyCODONE (OXY-IR) 5 mg immediate release capsule Take 1 capsule (5 mg total) by mouth every 6 (six) hours if needed for severe pain. Max Daily Amount: 20 mg 12 capsule 07/23/2024 documented in this encounter Discharge Disposition Disposition Code Departure Means Destination Comment s Home or Self Care documented in this encounter Progress Notes * Tonya Underwood RN - 07/23/2024 1:44 AM EST Pt was trying to clean her car, slipped and fell, hit her head , no loc, no thinner. Here with c/o right wrist pain right knee pain * lGenroy Palacio MD - 07/23/2024 1:38 AM ESTAssociated Order(s): Orthopedic Injury Treatment - Fracture Emergency Medicine Note Patient Name: Vale Zimmerman Initial Evaluation: 07/23/2024 : 1945 Patient's PCP: Jimbo Hopkins DO Emergency Physician: Glenroy Palacio MD History of Present Illness Chief Complaint: Chief Complaint Patient presents with Wrist Injury Pt slipped and fell on ice. Obvious deformity to right wrist HPI: 79-year-old female, no pertinent past medical history, who presents with right wrist pain. Patient slipped and fell on the ice and fell onto her outstretched right hand. She has pain, swelling, obvious deformity to the right wrist. She did strike her head, she did not lose consciousness. She is not on any blood thinners. She has no other injuries. ROS: I have performed a ROS with the pertinent positives and negatives documented in the history ofpresent illness. Previous History No past medical history on file. No past surgical history on file. No family history on file. has No Known Allergies. No current facility-administered medications on file prior to encounter. No current outpatient medications on file prior to encounter. Physical Exam ED Triage Vitals [07/23/24 0143] Temp Heart Rate Resp BP 36.3 ??C (97.3 ??F) 90 18 (!) 167/74 SpO2 Temp Source Heart Rate Source Patient Position 97 % Oral -- Sitting BP Location FiO2 (%) Left arm -- General: Well-appearing, well nourished, in no acute distress HEENT: PERRL, EOMI, external ears and nose appear unremarkable, airway is patent. Tenderness to palpation occipital scalp on the right. Neck: Supple, full range of motion Chest: Clear to auscultation; no evidence of respiratory distress Circulatory: RRR, extremities well perfused Abdomen: Non-distended, Non-Tender Extremities: Soft tissue swelling, ecchymosis, obvious bony deformity to the dorsal right wrist. Neurovascularly intact right hand. Skin: Warm and dry Neuro: Alert and oriented, no focal deficits Results Labs Reviewed - No data to display Abnormal Labs Reviewed - No data to display CT Head wo Contrast Final Result 1. No acute intracranial findings. This document has been electronically signed by: Kristian Adler MD on 07/23/2024 03:43:15 XR Wrist 3+ Views Right (Results Pending) I have discussed the incidental/abnormal imaging and/or lab abnormalities with the patient and haveinstructed them the need for further evaluation and workup with their primary care doctor. I have provided the patient with a paper copy of the abnormality. The laboratory results, imaging results and other diagnostic exam results were reviewed in the EMR. EKG Interpretation Critical Care Time None ? Medical Decision Making Medications oxyCODONE (ROXICODONE) immediate release tablet 2.5 mg (2.5 mg oral Not Given 07/23/24 0241) acetaminophen (TYLENOL) tablet 1,000 mg (1,000 mg oral Not Given 07/23/24 0242) morphine 2 mg/mL injection 2 mg (2 mg intravenous Given 07/23/24 0253) ondansetron (PF) (ZOFRAN) injection 4 mg (4 mg intravenous Given 07/23/24 0253) morphine 2 mg/mL injection 2 mg (2 mg intravenous Given 07/23/24 9204) lidocaine (XYLOCAINE) 1 % injection 5 mL (5 mL infiltration Given 07/23/24 3029) morphine 2 mg/mL injection 2 mg (2 mg intravenous Given 07/23/24 7514) Clinical Impressions as of 07/23/24 0627 Closed fracture of right wrist, initial encounter 79-year-old female, no significant past medical history, who presents with pain in her right wrist.Potential etiologies for her symptoms include but are not limited to sprain, strain, fracture, dislocation, intracerebral hemorrhage, subdural hematoma, subarachnoid hemorrhage. Head CT is pending toassess for possible intracranial abnormality. X-ray of the right wrist is pending. No clinical indication for blood work. X-ray demonstrates an fracture of the distal radius. Head CT shows no acute abnormality, no subdural hematoma, no intracerebral hemorrhage. Patient's wrist will be splinted and she will follow-up with orthopedics in 5 to 7 days for eventual casting. Case was discussed with Dr. Gibbs from orthopedics. Procedures Orthopedic Injury Treatment - Fracture Date/Time: 07/23/2024 6:26 AM Performed by: Glenroy Palacio MD Authorized by: Glenroy Palacio MD Consent: Consent obtained: Verbal Consent given by: Patient Risks, benefits, and alternatives were discussed: yes Risks discussed: Pain and nerve damage Jeddo protocol: Procedure explained and questions answered to patient or proxy's satisfaction: yes Imaging studies available: yes Site/side marked: yes Immediately prior to procedure, a time out was called: yes Patient identity confirmed: Verbally with patient and arm band Injury: Injury location: Forearm Forearm injury location: R forearm Forearm fracture type: distal radial Pre-procedure details: Distal neurologic exam: Normal Distal perfusion: distal pulses strong Range of motion: reduced Sedation: Sedation type: None Anesthesia: Anesthesia method: Local infiltration Local anesthetic: Lidocaine 1% w/o epi Procedure details: Manipulation performed: yes Skin traction used: no Skeletal traction used: yes Pin inserted: no Reduction successful: yes X-ray confirmed reduction: no Supplies used: Fiberglass Post-procedure details: Distal neurologic exam: Normal Distal perfusion: brisk capillary refill Range of motion: not applicable Procedure completion: Tolerated well, no immediate complications Diagnosis 1. Closed fracture of right wrist, initial encounter Disposition Discharge ED Prescriptions Medication Sig Dispense Start Date End Date Auth. Provider oxyCODONE (OXY-IR) 5 mg immediate release capsule Take 1 capsule (5 mg total) by mouth every 6 (six) hours if needed for severe pain. Max Daily Amount: 20 mg 12 capsule 07/23/2024 -- Glenroy Palacio MD Physician Attestation Glenroy Palacio MD 07/23/24 0239 Glenroy Palacio MD 07/23/24 0627 documented in this encounter Plan of Treatment Upcoming Encounters Date Type Department Care Team (Late st Contact Info) Description 08/07/2024 4:00 PM EST Office Visit Orthopedic Surgery - [place] [address] [facility] [address] [place] [id number] Presley Pandey MD [address] [facility] [address] [place] [address] Scheduled Referrals Name Type Priority Associated Diagnoses Order Schedule Ambulatory referral to Orthopedic Outpatient Referral Routine Expected: 07/30/2024, Expires: 07/23/2025 documented as of this encounter Procedures Procedure Name Priority Date/Time Associated Diagnosis Comments HC TREATMENT FRACTURE W/MANIPULATION Routine 07/23/2024 6:26 AM EST OK CLOSED TX DISTAL RADIUS FRACTURE/EPIPHYSEAL SEPARATION W/ MANIPULATION Routine 07/23/2024 6:[address] HEAD WO CONTRAST STAT 07/23/2024 3 :24 AM EST XR WRIST 3+ VIEWS RIGHT STAT 07/23/2024 1:57 AM EST documented in this encounter Results * OK CLOSED TX DISTAL RADIUS FRACTURE/EPIPHYSEAL SEPARATION W/ MANIPULATION, HC TREATMENT FRACTURE W/MANIPULATION (07/23/2024 6:26 AM EST) Narrative Glenroy Palacio MD - 07/23/2024 6:26 AM EST Glenroy Palacio MD ? 07/23/2024 ??6:27 AM Orthopedic Injury Treatment - Fracture Date/Time: 07/23/2024 6:26 AM Performed by: Glenroy Palacio MD Authorized by: Glenroy Palacio MD ?? Consent: ??Consent obtained: ??Verbal ??Consent given by: ??Patient ??Risks, benefits, and alternatives were discussed: yes ?Risks discussed: ??Pain and nerve damage Jeddo protocol: ??Procedure explained and questions answered to [...] Kristian Miller MD on 07/23/2024 03:43:15 us Scot Latosha Palacio MD IMG CT PROCEDURES Final Result * XR Wrist 3+ Views Right (07/23/2024 1:57 AM EST) Anatomical Region Laterality Modality Upper Extremities, Wrist Right Radiogr aphic Imaging 07/23/2024 9:02 AM EST Impressions 07/23/2024 9:03 AM EST Impression: 1. Acute fracture of the distal radius with dorsal angulation. 2. Acute fracture of the ulnar styloid process. Telerad CARINA ([id number]) -------- FINAL REPORT -------- Dictated By: Verena Ruiz Dictated Date: 07/23/2024 09:02 ET Assigned Physician: Verena Ruiz Reviewed and Electronically Signed By: Verena Ruiz Signed Date: 07/23/2024 09:03 ET Workstation ID: [id number] Transcribed By: Self Edit Transcribed Date: 07/23/2024 09:02 ET Narrative 07/23/2024 9:03 AM EST History: Right wrist pain after fall. Comparison: No comparison imaging at this institution. Findings: AP, oblique and lateral views of the right wrist. An acute fracture of the distal radial metaphysis is demonstrated, with dorsal angulation of the distal fracture fragment. The radiocarpal joint is intact. An acute fracture of the ulnar styloid process is also seen. There are scattered arthritic changes in the hand, with loss of cartilage space and marginal osteophytes. Soft tissue swelling and deformity of the distal forearm are noted. Procedure Note Verena Ruiz MD - 07/23/2024 History: Right wrist pain after fall. Comparison: No comparison imaging at this institution. Findings: AP, oblique and lateral views of the right wrist. An acute fracture of the distal radial metaphysis is demonstrated, withdorsal angulation of the distal fracture fragment. The radiocarpal jointis intact. An acute fracture of the ulnar styloid process is also seen. There are scattered arthritic changes in the hand, with loss of cartilagespace and marginal osteophytes. Soft tissue swelling and deformity of the distal forearm are noted. IMPRESSION: Impression: 1. Acute fracture of the distal radius with dorsal angulation. 2. Acute fracture of the ulnar styloid process. Teleneftali LIM ([id number]) -------- FINAL REPORT -------- Dictated By: Verena Ruiz Dictated Date: 07/23/2024 09:02 ET Assigned Physician: Verena Ruiz Reviewed and Electronically Signed By: Verena Ruiz Signed Date: 07/23/2024 09:03 ET Workstation ID: [id number] Transcribed By: Self Edit Transcribed Date: 07/23/2024 09:02 ET us Cristina Donnelly DO IMG XR PROCEDURES Final R esult documented in this encounter Visit Diagnoses Diagnosis Closed fracture of right wrist, initial encounter- Primary documented in this encounter Administered Medications Inactive Administered Medications - up to 3 most recent administrations Medication Order MAR Action Action Date Dose Rate Site lidocaine (XYLOCAINE) 1 % injection 5 mL 5 mL, infiltration, Once, On Tue07/23/24 at 0447, For 1 dose Given 07/23/2024 5:15 AM EST 5 mL morphine 2 mg/mL injection 2 mg 2 mg, intravenous, Once, On Tue07/23/24 at 0238, For 1 dose Given 07/23/2024 2:53 AM EST 2 mg morphine 2 mg/mL injection 2 mg 2 mg, intravenous, Once, On Tue07/23/24 at 0447, For 1 dose Given 07/23/2024 4:54 AM EST 2 mg morphine 2 mg/mL injection 2 mg 2 mg, intravenous, Once, On Tue07/23/24 at 0506, For 1 dose Given 07/23/2024 5:14 AM EST 2 mg ondansetron (PF) (ZOFRAN) injection 4 mg 4 mg, intravenous, Once, On Tue07/23/24 at 0238, For 1 dose Given 07/23/2024 2:53 AM EST 4 mg documented in this encounter Active and Recently Administered Medications Times are shown in EST. Scheduled Medication Order 07/21/2024 07/22/2024 07/23/2024 acetaminophen (TYLENOL) tablet 1,000 mg 1,000 mg, oral, Once, On Tue07/23/24 at 0232, For 1 dose 0242 (Not Given - Pr ovider: Khushi Everett RN - Reason: Other - Comment: provider dc'ed) lidocaine (XYLOCAINE) 1 % injection 5 mL (COMPLETED) 5 mL, infiltration, Once, On Tue07/23/24 at 0447, For 1 dose 0515 (Given - Provid er: Carolyne Hawkins RN) morphine 2 mg/mL injection 2 mg (COMPLETED) 2 mg, intravenous, Once, On Tue07/23/24 at 0238, For 1 dose 0253 (Given - Provid er: Khushi Everett RN) morphine 2 mg/mL injection 2 mg (COMPLETED) 2 mg, intravenous, Once, On Tue07/23/24 at 0447, For 1 dose 0454 (Given - Provid er: Carolyne Hawkins RN) morphine 2 mg/mL injection 2 mg (COMPLETED) 2 mg, intravenous, Once, On Tue07/23/24 at 0506, For 1 dose 0514 (Given - Provid er: Carolyne Hawkins RN - Comment: Verified with provider) ondansetron (PF) (ZOFRAN) injection 4 mg (COMPLETED) 4 mg, intravenous, Once, On Tue07/23/24 at 0238, For 1 dose 0253 (Given - Provid er: Khushi Everett RN) oxyCODONE (ROXICODONE) immediate release tablet 2.5 mg 2.5 mg, oral, Once, On Tue07/23/24 at 0232, For 1 dose 0241 (Not Given - Pr ovider: Khushi Marguerite, RN - Reason: Other - Comment: provider dc'ed) documented in this encounter Orders Medications Ordered That Kartik ht Not Have Been Administered Count Last Ordered Date First Ordered Date acetaminophen (TYLENOL) tablet 1,000 mg 1 0 07/23/2024 oxyCODONE (ROXICODONE) immed iate release tablet 2.5 mg 1 07/23/2024 documented in this encounter Care Teams Photo Engraver Relationship Specialty Start Date End Date Jimbo Hopkins DO [address] [place] [address] PCP - General Family Medicine 05/28/24 documented as of this encounter
--- OUTSIDE RECORDS SUMMARY | 2024-08-01 14:27 | XMS_ITS | Data Portability ---
Author Organization [place] [facility],, SARAH ADKINS MD Address [address] [address] [place] [id number] Assessment No assessment recorded. Plan of Treatment Reminders Order Date Submit Date Provider Last Modified By Organization Details Last Modified Time Details Appointments None recorded. Lab urinalysi s, dipstick 2014 015 [email or web address] 1 In-Office Order, Internal Use Only DO Not Attach Compendium DO Not Attach Compendium, Do Not Delete/merge, [id number] 5 10:57:12 culture, urine 2014 015 [facility], [address] [place] [address], [address], 5 09:22:17 ca 125, serum 2014 015 [facility], [address] [place], [address], 5 09:23:44 urinalysi s, dipstick, auto 2014 015 [email or web address] 1 In-Office Order, Internal Use Only DO Not Attach Compendium DO Not Attach Compendium, Do Not Delete/merge, [id number] 5 13:45:51 culture, urine 2014 015 [employer] [facility], [address] [place], [address], 5 09:12:13 urinalysi s, dipstick, auto 2014 015 [email or web address] 1 In-Office Order, Internal Use Only DO Not Attach Compendium DO Not Attach Compendium, Do Not Delete/merge, [id number] 5 16:22:27 culture, urine 2014 015 [facility], [address] [place], [address], 5 05:02:09 Pap test, slide(s), cervical 2014 015 [facility], Cytopathology Service, [address] [place], [address], 5 12:58:09 Referral None recorded. Procedures None recorded. Surgeries None recorded. Imaging ultrasoun d, pelvic transabdo salud & transvagi nal - 2 cm right ovarian cyst noted on the CT scan at [facility] 2014 015 [facility] ([facility]), [address] [place], [address], 5 20:17:30 MAMMO, screening , digital, bilateral 2014 015 [facility] ([facility]), [address] [place], [address], 5 10:56:21 Medication Orders Bactrim DS 800 mg-160 mg tablet 2014 015 [facility] - 17 [facility], [address] [place] [address], [id number], 5 14:17:48 Estrace 0.01% (0.1 mg/gram) vaginal cream 2014 015 herbert 1 [id number], [address] [place], [address], 5 16:22:28 Patient TargetsNo targets recorded. Patient Instructions Encounter Date Encounter Id Patient Instructions Last Modified By Organization Details Last Modified Time 11/01/2014 [id number] She is here to follow up on her recent pelvic CT at the [facility] where a 2 cm cystic lesion of the right ovary was noted, the left ovary was not found. she has had a hysterectomy. Pelvic sonogram and CA 125 is ordered, although the 2 cm simple cyst is likely benign.?? She had been told that both ovaries were removed during her abdominal hysterectomy for endometriosis, however this may be an ovarian remnant, or she may have a recurrent endometrioma.?? Will assess fluid density with sonogram. She is also here for urinary DIANE as she had a recent UTI, she feels it is not cleared fully yet. She had empirically begun on macrobid, felt improved while on it but off now for a few days and has dysuria back again. She has taken Bactrim??in the??past without a problem.?? RX Bactrim DS given for likely UTI, await C and S results. Face to face discussion 25 minutes Not available 11/01/2014 10:57:12 11/12/2014 [id number] She is here for DIANE after recent UTI, notes her symptoms are resolved fully. She is to have a follow up sonogram soon, to assess the 2 cm right ovarian cyst Her son is 43 and has multiple health issues, she is paying for a lot of things for him and his family, it is??a strain??for her. Note from last year: She is here to follow up on her recent pelvic CT at the [facility] where a 2 cm cystic lesion of the right ovary was noted, the left ovary was not found. she has had a hysterectomy. ??Pelvic sonogram and CA 125 is ordered, although the 2 cm simple cyst is likely benign.?? She had been told that both ovaries were removed during her abdominal hysterectomy for endometriosis, however this may be an ovarian remnant, or she may have a recurrent endometrioma.?? Will assess fluid density with sonogram. ??She is also here for urinary DIANE as she had a recent UTI, she feels it is not cleared fully yet. She had empirically begun on macrobid, felt improved while on it but off now for a few days and has dysuria back again. She has taken Bactrim in the past without a problem.?? RX Bactrim DS given for likely UTI, await C and S results. Face to face discussion 15 minutes Not available 11/12/2014 13:45:51 11/25/2014 [id number] painful urinatio n (dysuria): care instructions Not available 11/25/2014 16:22:28 She is here for a follow up after UTI.?? She notes that she still feels a sensation, Bothering me, the feeling like you are going to have an orgasm. She is concerned. She is also her to discuss two small cystic areas in the right adnexal region noted on recent sonogram. She has no uterus or ovaries seen on sonogram, in agreement iwht her surgical history. Urine dip is unremarkable, will check culture. We discussed that the two cystic areas may simply be inclusion cysts, will repeat sonogram in 6 weeks to assure stability. Face to face discussion 25 minutes Not available 11/25/2014 16:22:28 01/28/2015 [id number] She appears to b e doing well. She had two ovarian cysts noted on sonogram in 11/2014, after CT scan noted them. One scan was 1.4 cm the other 0.7, and repeat sono last week it appeared one was resolved. Will repeat the sono in 6 weeks ot see if the other resolves, as they may just represent peritoneal inclusion cysts. She is advised to get 1500 mg of calcium daily into her diet and supplements combined. There is a health benefit with adequate vitamin D supplementation to at least 400 units daily, daily aerobic exercise of 30 minutes, and stress reduction. Monthly self breast exam was taught, and stressed, and is advised to call if she discovers any new mass in the breast. ?? Seat belt use for herself and passengers are advised. There are significant health benefits of becoming and remainig fit, with an optimal BMI. There is a potential reduction in chronic discomfort, diminished risks of hypertension, diabetes, and heart disease with the proper weight management. With a recommended BMI there can be improved mobility as she ages. Strategies to reach and maintain her target weight were discussed in detail. Not available 01/28/2015 14:46:11 03/30/2016 [id number] She is here for discussion of her recent pelvic sonogram , which showed 3 cysts in the right adnexae, the largest is 2 cm. she has a past history of hysterectomy and removal of one or possibly both ovaries, she is not certain. Her brother was positive for Coles Syndrome Colaris testing, she has still not been tested because her insurance does not cover the cost. Her last colonoscopy was probably 4 years ago. Note from annual exam 01/2015: Discussion Notes She appears to be doing well. She had two ovarian cysts noted on sonogram in 11/2014, after CT scan noted them. One scan was 1.4 cm the other 0.7, and repeat sono last week it appeared one was resolved. Will repeat the sono in 6 weeks ot see if the other resolves, as they may just represent peritoneal inclusion cysts We discussed that the pelvic cysts in the region of the right ovary have been relatively stable for the past year, it is only slightly larger a year later. She and I discusssed this and will repeat the sonogram in one year for follow up. We also discussed that she has a 50% chance of being Coles Syndrome positive and if so then she would need a colonoscopy annually. Her GI doctor is at [facility]. She did tell her GI doctor that her brother was positive for the Colaris test. We discussed that she could do the single site testing for around 400 dollars, she is interested in doing this. She will return for single site genetic testing for Colaris testing. Face to face discussion 25 minutes [email or web address] Not available 03/30/2016 14:14:29 Reason for Referral None Reported. Results Created Date Observation Date Name Description Value Unit Range Abnormal Flag Note LastModifiedBy Organization Detail LastModifiedTime 11/26/1911/25/2014 urina lysis , dipst ick, auto glucose negati ve Not Available In-Office Order Internal Use Only DO Not Attach Compendium DO Not Attach Compendium, Do Not Delete/merge, 11/25/2014 14:41:11/26/1911/25/2014 urina lysis , dipst ick, auto MONSTER negati ve Not Available In-Office Order Internal Use Only DO Not Attach Compendium DO Not Attach Compendium, Do Not Delete/merge, 11/25/2014 14:41:11/26/1911/25/2014 urina lysis , dipst ick, auto ket negati ve Not Available In-Office Order Internal Use Only DO Not Attach Compendium DO Not Attach Compendium, Do Not Delete/merge, 11/25/2014 14:41:11/26/1911/25/2014 urina lysis , dipst ick, auto SG 1.020 Not Available In-Office Order Internal Use Only DO Not Attach Compendium DO Not Attach Compendium, Do Not Delete/merge, 11/25/2014 14:41:11/26/1911/25/2014 urina lysis , dipst ick, auto BLO NEGATI VE Not Available In-Office Order Internal Use Only DO Not Attach Compendium DO Not Attach Compendium, Do Not Delete/merge, 11/25/2014 14:41:11/26/1911/25/2014 urina lysis , dipst ick, auto PH 5.0 Not Available In-Office Order Internal Use Only DO Not Attach Compendium DO Not Attach Compendium, Do Not Delete/merge, 11/25/2014 14:41:11/26/1911/25/2014 urina lysis , dipst ick, auto PRO NEGATI VE Not Available In-Office Order Internal Use Only DO Not Attach Compendium DO Not Attach Compendium, Do Not Delete/merge, 11/25/2014 14:41:11/26/1911/25/2014 urina lysis , dipst ick, auto URO 0.2 E.U. /dl Not Available In-Office Order Internal Use Only DO Not Attach Compendium DO Not Attach Compendium, Do Not Delete/merge, 11/25/2014 14:41:18 11/26/19 15 11/25/2014 urina lysis , dipst ick, auto NIT NEGATI VE Not Available In-Office Order Internal Use Only DO Not Attach Compendium DO Not Attach Compendium, Do Not Delete/merge, 11/25/2014 14:41:18 11/26/19 15 11/25/2014 urina lysis , dipst ick, auto LISETH NEGATI VE Not Available In-Office Order Internal Use Only DO Not Attach Compendium DO Not Attach Compendium, Do Not Delete/merge, 11/25/2014 14:41:18 11/13/19 15 11/12/2014 urina lysis , dipst ick, auto glucose negati ve Not Available In-Office Order Internal Use Only DO Not Attach Compendium DO Not Attach Compendium, Do Not Delete/merge, 11/12/2014 13:17:21 11/13/19 15 11/12/2014 urina lysis , dipst ick, auto MONSTER negati ve Not Available In-Office Order Internal Use Only DO Not Attach Compendium DO Not Attach Compendium, Do Not Delete/merge, 11/12/2014 13:17:21 11/13/19 15 11/12/2014 urina lysis , dipst ick, auto ket negati ve Not Available In-Office Order Internal Use Only DO Not Attach Compendium DO Not Attach Compendium, Do Not Delete/merge, 11/12/2014 13:17:21 11/13/19 15 11/12/2014 urina lysis , dipst ick, auto SG 1.005 Not Available In-Office Order Internal Use Only DO Not Attach Compendium DO Not Attach Compendium, Do Not Delete/merge, 11/12/2014 13:17:21 11/13/1911/12/2014 urina lysis , dipst ick, auto BLO HEMOLY ZED: TRACE Not Available In-Office Order Internal Use Only DO Not Attach Compendium DO Not Attach Compendium, Do Not Delete/merge, 11/12/2014 13:17:21 11/13/1911/12/2014 urina lysis , dipst ick, auto PH 5.0 Not Available In-Office Order Internal Use Only DO Not Attach Compendium DO Not Attach Compendium, Do Not Delete/merge, 11/12/2014 13:17:21 11/13/1911/12/2014 urina lysis , dipst ick, auto PRO NEGATI VE Not Available In-Office Order Internal Use Only DO Not Attach Compendium DO Not Attach Compendium, Do Not Delete/merge, 11/12/2014 13:17:21 11/13/1911/12/2014 urina lysis , dipst ick, auto URO 0.2 E.U. /dl Not Available In-Office Order Internal Use Only DO Not Attach Compendium DO Not Attach Compendium, Do Not Delete/merge, 11/12/2014 13:17:21 11/13/1911/12/2014 urina lysis , dipst ick, auto NIT NEGATI VE Not Available In-Office Order Internal Use Only DO Not Attach Compendium DO Not Attach Compendium, Do Not Delete/merge, 11/12/2014 13:17:21 11/13/1911/12/2014 urina lysis , dipst ick, auto LISETH NEGATI VE Not Available In-Office Order Internal Use Only DO Not Attach Compendium DO Not Attach Compendium, Do Not Delete/merge, 11/12/2014 13:17:21 11/02/1911/01/2014 urina lysis , dipst ick GLU Negati ve Not Available In-Office Order Internal Use Only DO Not Attach Compendium DO Not Attach Compendium, Do Not Delete/merge, 11/01/2014 10:24:47 11/02/1911/01/2014 urina lysis , dipst ick MONSTER Negati ve Not Available In-Office Order Internal Use Only DO Not Attach Compendium DO Not Attach Compendium, Do Not Delete/merge, 11/01/2014 10:24:47 11/02/1911/01/2014 urina lysis , dipst ick KET Negati ve Not Available In-Office Order Internal Use Only DO Not Attach Compendium DO Not Attach Compendium, Do Not Delete/merge, 11/01/2014 10:24:47 11/02/1911/01/2014 urina lysis , dipst ick SG 1.025 Not Available In-Office Order Internal Use Only DO Not Attach Compendium DO Not Attach Compendium, Do Not Delete/merge, 11/01/2014 10:24:47 11/02/1911/01/2014 urina lysis , dipst ick BLO Modera te Not Available In-Office Order Internal Use Only DO Not Attach Compendium DO Not Attach Compendium, Do Not Delete/merge, 11/01/2014 10:24:47 11/02/1911/01/2014 urina lysis , dipst ick pH 5.0 Not Available In-Office Order Internal Use Only DO Not Attach Compendium DO Not Attach Compendium, Do Not Delete/merge, 11/01/2014 10:24:47 11/02/1911/01/2014 urina lysis , dipst ick PRO 30 Not Available In-Office Order Internal Use Only DO Not Attach Compendium DO Not Attach Compendium, Do Not Delete/merge, 11/01/2014 10:24:47 11/02/1911/01/2014 urina lysis , dipst ick URO 0.2 E.U. / dl Not Available In-Office Order Internal Use Only DO Not Attach Compendium DO Not Attach Compendium, Do Not Delete/merge, 11/01/2014 10:24:47 11/02/1911/01/2014 urina lysis , dipst ick NIT negati ve Not Available In-Office Order Internal Use Only DO Not Attach Compendium DO Not Attach Compendium, Do Not Delete/merge, 11/01/2014 10:24:47 11/02/1911/01/2014 urina lysis , dipst ick LISETH Small Not Available In-Office Order Internal Use Only DO Not Attach Compendium DO Not Attach Compendium, Do Not Delete/merge, 11/01/2014 10:24:47 11/02/19 15 11/01/2014 ca 125, serum comments [facility] [address] [facility] [place] [address] [phone] Not Available [facility] [address] [place], [address], 11/02/2014 10:36:37 11/02/19 15 11/01/2014 ca 125, serum Ca125 11 U/mL <35 CA-12 5 resul t obtai kenneth by [facility] metho d. Not Available [facility] [address] [place], [address], 11/02/2014 10:36:37 11/02/19 15 11/01/2014 antib iotic sensi tivit y, isola te comments PAREN T ORGAN ISM: CITRO BACTE R FREUN DII ( CITFR E ) [facility] [address] [facility] [address] [place], [place] [address] [phone] SOURC E: URINE ,AYSE N CATCH ; Not Available [facility] [address] [place], [address], 11/04/2014 04:28:11 11/02/19 15 11/03/2014 antib iotic sensi tivit y, isola te gram negative susceptibili ty [facility] [address] [place] [address] [phone] TRIME THOPR IM/DONATO LFAME THOXA ZOLE <=20 S F AMOXI CILLI N/CLA VULAN IC ACID 4 R F CEFAZ KALEN >=64 R F CEFTA ZIDIM E <=1 S F CEFTR IAXON E <=1 S F CEFEP LIS <=1 S F CIPRO FLOXA ONEIL <=0.2 5 S F ERTAP ENEM <=0.5 S F GENTA MICIN <=1 S F LEVOF LOXAC IN <=0.1 2 S F IMIPE NEM <=0.2 5 S F NITRO FURAN TOIN 32 S F TOBRA MYCIN <=1 S F Not Available [facility] [address] [place], [address], 11/04/2014 04:28:11 11/02/19 15 11/01/2014 cultu re, urine comments [facility] [address] [facility] [address] [place], [place] [address] [phone] SOURC E: URINE ,AYSE N CATCH ; Not Available [facility] [address] [place] [address], [address], 11/04/2014 05:31:21 11/02/19 15 11/03/2014 cultu re, urine urine culture [facility] [address] [place] [address] URINE CULTU RE CITRO BACTE R FREUN DII ( CITFR E ) F URINE CULTU RE COLON Y COUNT F URINE CULTU RE 50,00 0-100 ,000 F Not Available [facility] [address] [place] [address], [address], 11/04/2014 05:31:21 11/13/19 15 11/12/2014 cultu re, urine comments [facility] [address] [facility] [address] [place], [place] [address] [phone] SOURC E: URINE ,AYSE N CATCH ; Not Available [facility] [address] [place] [address], [address], 11/14/2014 09:12:13 11/13/19 15 11/13/2014 cultu re, urine urine culture [address] [address] URINE CULTU RE <10,0 00 CFU/m L F URINE CULTU RE GRAM POSIT SHELDON COCCI F Not Available [facility] [address] [place] [address], [address], 11/14/2014 09:12:13 11/26/19 15 11/25/2014 cultu re, urine comments [facility] [address] [place] [address] [address] [place], [place] [address] [phone] SOURC E: URINE ,AYSE N CATCH ; Not Available [facility] [address] [place] [address], [address], 11/27/2014 05:02:09 11/26/19 15 11/26/2014 cultu re, urine urine culture [facility] [address] [place] [address] URINE CULTU RE <10,0 00 CFU/m L F URINE CULTU RE GRAM POSIT SHELDON COCCI F Not Available [facility] [address] [place], [address], 11/27/2014 05:02:09 01/29/20 15 01/28/2015 pap, LB [id number] ThinP rep Pap, Image d: NEGAT SHELDON FOR SQUAM OUS INTRA EPITH ELIAL LESIO N AND MALIG JAYANT . Rosina da is prese nt. Serena Catalan hers, CT( CP) (Case elect gabbi pinto jimi d 01 31 2015) ADEQU ACY: Satis facto ry. . SOURC E: ThinP rep Pap, Cervi bear, Image d CLINI BEAR INFOR MATIO N: HPV If Diagn osis of ASCUS . LPS neg, menop ause, hyste recto my * Cytop athol ogy servi yandel provi ded by [facility] at the above addre ss. Not Available [facility], Cytopathology Service [address] [place], [address], 01/31/2015 12:16:36 10/31/19 15 10/28/2014 imagi ng/di bri tic resul t No observ ation record ed. [email or web address] Not Available 2014 12:03:05 11/22/19 15 11/21/2014 ultra sound , pelvi c trans abdom inal & trans vagin al No observ ation record ed. [facility] [address] [place], [address], 11/25/2014 15:00:53 01/23/20 15 01/21/2015 ultra sound , pelvi c trans abdom inal & trans vagin al No observ ation record ed. [facility] [address] [place], [address], 01/28/2015 15:39:10 03/04/20 15 03/04/2015 ultra sound , pelvi c trans abdom inal & trans vagin al No observ ation record ed. [facility] [address] [place] [address], [address], 03/06/2015 10:52:41 03/10/20 15 03/04/2015 MAMMO , scree silvia, digit al, bilat eral No observ ation record ed. [facility] [address] [place] [address], [address], 03/10/2015 15:01:05 03/12/20 15 03/12/2015 MAMMO , scree silvia, digit al, bilat eral No observ ation record ed. [address] [facility] [address] [place] [address], [address], 03/13/2015 08:39:43 03/13/20 15 03/12/2015 ultra sound , breas t No observ ation record ed. [address] [facility] [address] [place] [address], [address], 03/14/2015 08:14:31 09/10/19 16 09/10/2015 MAMMO , diagn ostic , digit al, unila teral No observ ation record ed. [facility] [address] [place] [address], [address], 09/15/2015 09:33:28 09/10/19 16 09/10/2015 ultra sound , pelvi c trans abdom inal & trans vagin al No observ ation record ed. [facility] [address] [place] [address], [address], 09/15/2015 09:33:28 03/25/20 16 03/25/2016 MAMMO , scree silvia, digit al, bilat eral No observ ation record ed. [facility] [address] [place], [address], 03/26/2016 10:26:15 03/25/20 16 03/25/2016 ultra sound , pelvi c trans abdom inal & trans vagin al No observ ation record ed. [facility] [address] [place], [address], 03/26/2016 14:00:23 04/19/20 17 04/18/2017 MAMMO , scree silvia, digit al, bilat eral No observ ation [facility] ed. [email or web address] [address] [place], [address], 04/20/2017 07:37:54 Result Notes None recorded. 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 Sarah Adkins MD [address], [place], [address], [place] [facility], 4 13:11:34 Urinary incontinenc e 282021692 Active Sarah Adkins MD [address], [place], [address], [place] [facility], 4 13:11:34 Dysuria 55286935 Active Sarah Adkins MD [address], [place], [address], [place] [facility], 5 16:22:27 Acute lower urinary tract infection 612316942 Active Sarah Adkins MD [address], [place], 5, [place] - [facility], 5 10:57:12 Cyst of ovary 00250446 Active Sarah Adkins MD [address], [place], [address], [place] [facility], 6 13:04:57 Candidal vulvovagini tis 75205517 Active Sarah Adkins MD [address], [place], 5, [place] [facility], 5 16:37:56 Mammography abnormal 702403421 Active Sarah Adkins MD [address], [place], 5, [place] - [facility], 6 13:04:57 Family history of genetic disorder carrier 445210739 Active brother tested positive for Colaris test Sarah Adkins MD [address], [place], 5, [place] - [facility], 4 13:28:57 Menopausal syndrome 323178191 Active Sarah Adkins MD [address], [place], 5, [place] - [facility], 4 13:28:57 Problem Notes None recorded. Procedures Surgical History Date Name Laterality Status Provider Name and Address Organization Details Recorded Time 01/29/20 15 Medicare Annual completed Beth Chance in [facility], 01/28/2015 14:22:27 06/20/18 91 Hysterectomy completed Seema Chance in [facility], 01/01/2013 11:40:33 06/20/18 86 Dilation and Curettage completed Seema Chance in [facility], 01/01/2013 11:40:33 06/20/18 80 Appendectomy completed Seema Pizano [place] [facility], 01/01/2013 11:40:33 Imaging Results Imaging Date Name Status LastModified by Organization Details LastModified Time 10/28/2014 imaging/diagnostic result completed [facility] Information not available 10/31/2014 12:03:05 11/21/2014 ultrasound, pelvic transabdominal & transvaginal completed [facility] [address] [place] [address], [address], 11/25/2014 15:00:53 01/21/2015 ultrasound, pelvic transabdominal & transvaginal completed [facility] [address] [place] [address], [address], 01/28/2015 15:39:10 03/04/2015 ultrasound, pelvic transabdominal & transvaginal completed [facility] [address] [place] [address], [address], 03/06/2015 10:52:41 03/04/2015 MAMMO, screening, digital, bilateral completed [facility] [address] [place] [address], [address], 03/10/2015 15:01:05 03/12/2015 MAMMO, screening, digital, bilateral completed [address] [facility] [address] [place] [address], [address], 03/13/2015 08:39:43 03/12/2015 ultrasound, breast completed [address] [facility] [address] [place] [address], [address], 03/14/2015 08:14:31 09/10/2015 MAMMO, diagnostic, digital, unilateral completed [facility] [address] [place] [address], [id number], 09/15/2015 09:33:28 09/10/2015 ultrasound, pelvic transabdominal & transvaginal completed [facility] [address] [place], [id number], 09/15/2015 09:33:28 03/25/2016 MAMMO, screening, digital, bilateral completed [facility] [address] [place] [address], [id number], 03/26/2016 10:26:15 03/25/2016 ultrasound, pelvic transabdominal & transvaginal completed [facility] [address] [place] [address], [id number], 03/26/2016 14:00:23 04/18/2017 MAMMO, screening, digital, bilateral completed [facility] [address] [place] [address], [id number], 04/20/2017 07:37:54 Procedure Notes None recorded. Medical Equipment None Reported. Allergies No known drug allergies Medications Name Sig Start Date Stop Date Status Note LastModified by Organization Details LastModified Time amoxicillin 500 mg capsule active Not Available Not Available Not Available hydrocodone 7.5 mg-ibuprofen 200 mg tablet active Not Available Not Available Not Available terconazole 0.4 % vaginal cream Insert 1 applicatorf ul every day by vaginal route for 7 days. 2014 active Not Available Not Available Not Avai lable nystatin 100,000 unit/mL oral suspension TAKE 5ML (1 TSP) BY MOUTH FOUR TIMES A DAY NEEDED. active Not Available Not Available N ot Available prednisone 10 mg tablet TAKE DIRECTED = FOLLOW SCHEDULE 'A' ON THE ATTACHED PIECE OF PAPER FROM DOCTOR active Not Available Not Available No t Available doxycycline hyclate 100 mg capsule TAKE 1 CAPSULE BY MOUTH 2 TIMES DAILY active Not Available Not Available Not Available tizanidine 2 mg tablet active Not Available Not Available No t Available oxybutynin chloride ER 10 mg tablet,exten ded release 24 hr active Not Available Not Available Not Available azithromycin 250 mg tablet take 2 tablets by mouth on day 1 in one dose then 1 tablet on days 2 through 5 active Not Available Not Available No t Available ibuprofen 800 mg tablet active Not Available Not Available Not Available Lidocaine Viscous 2 % mucosal solution active Not Available Not Available Not Available fluconazole 150 mg tablet TAKE 1 TABLET BY MOUTH EVERY DAY FOR 1 DAY active Not Available Not Available No t Available sumatriptan 100 mg tablet active Not Available Not Available Not Available clonazepam 0.5 mg tablet active Not Available Not Available Not Available Pyridium 100 mg tablet Take 1 tablet 3 times a day by oral route as needed. 2013 active Not Available Not Available Not Avai lable meclizine 12.5 mg tablet active Not Available Not Available Not Available acetaminophe n 300 mg-codeine 30 mg tablet TAKE 1 TO 2 TABLETS BY MOUTH EVERY 4 TO 6 HOURS NEEDED FOR PAIN. active Not Available Not Available No t Available sulfamethoxa zole 800 mg-trimethop rim 160 mg tablet take 1 tablet by mouth twice a day for 7 days active Not Available Not Available No t Available omeprazole 40 mg capsule,arpan yed release active Not Available Not Available Not Available tramadol 50 mg tablet TAKE 1 TABLET BY MOUTH EVERY 6 HOURS. active Not Available Not Available No t Available ketorolac 0.5 % eye drops active Not Available Not Available Not Available Macrobid 100 mg capsule Take 1 capsule twice a day by oral route for 7 days. 2014 active Not Available Not Available Not Avai lable methocarbamo l 750 mg tablet active Not Available Not Available Not Available estradiol 1 mg tablet one tablet by mouth daily 2015 active Not Available Not Available Not Avai lable famciclovir 500 mg tablet active Not Available Not Available Not Available Antacid Anti-Gas 200 mg-200 mg-20 mg/5 mL oral suspension TAKE 30 ML BY MOUTH ONCE DAILY. active Not Available Not Available Not Available temazepam 30 mg capsule active Not Available Not Available N ot Available lorazepam 2 mg tablet active Not Available Not Available No t Available meclizine 25 mg tablet active Not Available Not Available No t Available cephalexin 500 mg capsule take 1 capsule by mouth every 12 hours for 7 days active Not Available Not Available N ot Available pantoprazole 40 mg tablet,delay ed release active Not Available Not Available N ot Available erythromycin 5 mg/gram (0.5 %) eye ointment active Not Available Not Available Not Available lansoprazole 30 mg capsule,arpan yed release active Not Available Not Available Not Available omeprazole 20 mg capsule,arpan yed release take 1 capsule by mouth twice a day active Not Available Not Available No t Available hydrocodone 5 mg-acetamino phen 500 mg tablet active Not Available Not Available Not Available zolpidem 10 mg tablet active Not Available Not Available No t Available hydrocodone 10 mg-chlorphen iramine 8 mg/5 mL oral susp extend.rel 12hr TAKE 1 TEASPOONFUL (5 MILLILTERS) BY MOUTH EVERY 12 HOURS NEEDED active Not Available Not Available No t Available fluticasone propionate 50 mcg/actuatio n nasal spray,suspen karmen active Not Available Not Available Not Available dicyclomine 10 mg capsule active Not Available Not Available Not Available Estrace 0.01% (0.1 mg/gram) vaginal cream Insert one gram vaginally q 2014 active Not Available Not Available Not Avai lable azithromycin 500 mg tablet active Not Available Not Available Not Available Miconazole-3 200 mg-2 % (9 gram) vaginal kit USE AT BEDTIME WITH APPLICATOR FOR 3 DAYS active Not Available Not Available N ot Available Premarin 0.625 mg/gram vaginal cream active Not Available Not Available Not Available Premarin 0.3 mg tablet active Not Available Not Available No t Available Flovent HFA 110 mcg/actuatio n aerosol inhaler active Not Available Not Available Not Available Fiber Therapy Laxative (psyllium husk) 0.52 gram capsule TAKE 1 TO 2 CAPSULE BY MOUTH ONCE A DAY IF NEEDED FOR CONSTIPATIO N active Not Available Not Available No t Available ProAir HFA 90 mcg/actuatio n aerosol inhaler INHALE 2 PUFFS EVERY 4 TO 6 HOURS NEEDED. active Not Available Not Available No t Available Voltaren 1 % topical gel active Not Available Not Available Not Available lidocaine 5 % topical ointment Apply by topical route. Apply topically as a thin film to the area of concern, twice a day, as needed 2014 active Not Available Not Available Not Avai lable Vitals Date Recorded Body height Body mass index (BMI) Heart rate Body weight Systolic blood pressure Diastolic blood pressure Provider Name and Address Organization Details Last Updated DateTime 5 167.64 cm 23.8 kg/m2 85 /min 85874.2 71012 g 119 mm[Hg] 50 mm[Hg] Seema Pizano [place] - [facility], 5 10:24:27 Date Recorded Body weight Body height Body mass index (BMI) Heart rate Systolic blood pressure Diastolic blood pressure Provider Name and Address Organization Details Last Updated DateTime 5 81905.0 70601 g 167.64 cm 24.8 kg/m2 67 /min 104 mm[Hg] 61 mm[Hg] Seema Chance in [facility], 5 13:16:25 Date Recorded Body height Body weight Heart rate Body mass index (BMI) Systolic blood pressure Diastolic blood pressure Provider Name and Address Organization Details Last Updated DateTime 5 167.64 cm 72747.6 61847 g 73 /min 23.7 kg/m2 103 mm[Hg] 50 mm[Hg] Beth Chance in [facility], 5 14:49:18 Date Recorded Heart rate Body weight Body mass index (BMI) Body height Systolic blood pressure Diastolic blood pressure Provider Name and Address Organization Details Last Updated DateTime 5 86 /min 07871.0 4024 g 24.5 kg/m2 167.64 cm 116 mm[Hg] 69 mm[Hg] Beth Chance in [facility], 5 14:16:01 Date Recorded Body height Body weight Body mass index (BMI) Heart rate Systolic blood pressure Diastolic blood pressure Provider Name and Address Organization Details Last Updated DateTime 6 167.64 cm 26041.1 4 g 24.2 kg/m2 75 /min 136 mm[Hg] 79 mm[Hg] Seema Chance in [facility], 6 13:04:56 Social History Question Answer Notes LastModified by Organizat ion Details LastModified Time Tobacco Smoking Status Never Smoker Not Available [employer] 04/22/2020 03:19:39 What Is Your Level Of Alcohol Consumption? Moderate [id number] Information not available 04/22/2020 What Is Your Level Of Caffeine Consumption? Occasional [id number] Information not available 04/22/2020 What Type Of Diet Are You Following? REGULAR [id number] Information not available 04/22/2020 Which Illicit Or Recreational Drugs Have You Used? No [id number] Information not available 04/22/2020 Do You Reside In Or Have You Traveled To An Area Where Ebola Virus Transmission Is Active? 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 0 Information no t available 03/30/2016 High Number Of Sexual Partners No Information not available 03/30/2016 To Which Gender Do You Self-identify? Female Information not available 03/30/2016 Marital Status Informatio n not available 01/01/2013 Are You Sexually Active? Yes [id number] Information not available 04/22/2020 How Much Tobacco Do You Smoke? No [id number] Information not available 04/22/2020 General Stress Level High Information not available 01/01/2013 How Many Years Have You Smoked Tobacco? 0 [id number] Information not available 04/22/2020 Have You Recently (within The Last 12 Weeks, Or During A Current ) Traveled To Or Lived In A Zika-affected Area? No Information not available 03/30/2016 Sex: Unknown Functional Status Question Answer Note LastModified by Organizat ion Details LastModified Time What is your exercise level? Occasional [id number] Information not available 04/22/2020 Mental Status None recorded. Family History Relationship Description Onset Age of this Age Resolved Age Notes LastModified by Organization Details LastModified Time Father Heart disease previo usly record ed as Heart Proble m Not available 01/28/2015 14:30:35 Unspecified Relation Malignant tumor of colon 34 patern al cousin (previ ously record ed as Colon Cancer ) Not available 01/28/2015 14:30:35 Paternal Grandfather Malignant tumor of colon 54 66 previo usly record ed as Colon Cancer Not available 11/01/2014 10:31:43 Brother Malignant tumor of colon [age] recurr ent colon cancer age 63 (previ ously record ed as Colon Cancer ) Not available 11/01/2014 10:31:43 Notes:Her brother tested pos itive for Coles Syndrome with the Colaris test, she has not yet been tested Medical History Condition Response Anesthesia complications Y High Blood Pressure N Candidate for MyRisk panel Y Autoimmune Condition N Thyroid Problems N Kidney or Bladder Problems Y GI Problems Y Lung Disease N Depression Y Defects or Inherited Disease N History of Ovarian Cancer N Anemia Y History of Breast Cancer N PAULINE exposure N BRCA testing in past N Osteopenia Y Psychiatric Illness N Anxiety Disorder Y Diabetes N Arthritis Y Headaches or Migraines Y Infertility N Asthma Y History of Cancer N Endometriosis Y Hepatitis N Heart Disease N Hypertension N Osteoporosis Y Gynecological History Statement/Question Response If Post Menopausal, Age at Menopause 37 Age at Menarche 15 Age at First Child 27 Obstetrics History GPAL:G 2 P 1 0 1 1 Type Value Full Term 1 Living 1 Ectopics 1 Total 2 Immunizations Vaccine Type Date Status Note Provider Nam e and Address Organization Details Recorded Time influenza, unspecified formulation 3 completed JAY Stanley in [facility], 01/01/2013 11:40:33 Pneumococcal Conjugate, unspecified formulation 6 completed JAY Stanley in [facility], 03/30/2016 13:06:36 zoster live 6 completed JAY Stanley in [facility], 03/30/2016 13:06:56 Past Encounters Encounter ID Performer Location Encounter Start Date Encounter Closed Date Diagnosis/Indication Diagnosis SNOMED-CT Code Diagnosis ICD10 Code Diagnosis Note [id number] Seema ADKINS MD [address] [place],[address] [place] [address] 01/01/2013 11:12:02 01/02/2013 08:07:12 [id number] Seema ADKINS MD [address] [facility] [place] [address] 01/09/2013 13:00:21 01/10/2013 09:29:51 [id number] Seema ADKINS MD [address] [place] [place] [address] 01/08/2014 12:46:45 01/08/2014 13:44:32 Screening for malignant neoplasm of cervix [id number] Screening mammography 21759342 Menopausal syndrome 934675631 Atrophic vaginitis 15293090 Family his tory of genetic disorder carrier [id number] Seema Susanclaire SARAH ADKINS MD [address] [place] [address] 06/14/2014 08:31:45 06/14/2014 09:54:49 Dysuria [id number] Beth Minor SARAH ADKINS MD [address] [place] [address] 11/01/2014 10:09:00 11/01/2014 13:12:24 Acute lower urinary tract infection 631938866 Cyst of ovary 34041066 [id number] SARAH ADKINS MD [address] [place] [address] 11/12/2014 13:11:35 11/12/2014 16:03:17 Dysuria [id number] SARAH ADKINS MD [address] [place] [address] 11/25/2014 14:38:36 11/26/2014 08:02:59 Dysuria 18677940 Atrophic vaginitis 95302194 [id number] SARAH ADKINS MD [address] [place] [address] 01/28/2015 14:08:30 01/29/2015 08:26:54 Screening mammography 43322813 Screening for malignant neoplasm of cervix [id number] MD SARAH Ash MD [address] [place] [address] 03/30/2016 12:56:35 03/30/2016 14:16:18 Cyst of ovary 44686765 N83.201 Family his tory of genetic disorder carrier [id number] Z84.81 Health Concerns Section Related Observation LastModified by Organization Detai ls LastModified Time None Recorded Concern Status LastModified by Organization Details LastModified Time None Recorded Advance Directives Directive None Recorded Payers Encounter Date Sequence Insurance Name Policy Number Policy Berrios Covered Member ID Berrios Member ID Guarantor Name 11/01/2014 1 [facility] - MEDICARE PREFERRED (MEDICARE REPLACEMENT HMO) GEOVANNY franklin James [id number] 1 Benjamin Zimmerman 11/12/2014 1 [facility] - MEDICARE PREFERRED (MEDICARE REPLACEMENT HMO) [employer] franklin James [id number] 1 Benjamin Zimmerman 11/25/2014 1 [facility] - MEDICARE PREFERRED (MEDICARE REPLACEMENT HMO) [employer] Brain franklin James [id number] 1 Benjamin Zimmermna 01/28/2015 1 [facility] - MEDICARE PREFERRED (MEDICARE REPLACEMENT HMO) [employer] Brain franklin James [id number] 1 Benjamin Zimmerman 03/30/2016 1 [facility] - MEDICARE PREFERRED (MEDICARE REPLACEMENT HMO) GEOVANNY franklin James [id number] 1 Benjamin Zimmerman Notes Date Note Type Note Provider Name and Address Organization Details Recorded Time 03/30/2016 text/html She is here for discussion of her recent pelvic sonogram , which showed 3 cysts in the right adnexae, the largest is 2 cm. she has a past history of hysterectomy and removal of one or possibly both ovaries, she is not certain. Her brother was positive for Coles Syndrome Colaris testing, she has still not been tested because her insurance does not cover the cost. Her last colonoscopy was probably 4 years ago. N ote from annual exam 01/2015:Discussion Notes She appears to be doing well. She had two ovarian cysts noted on sonogram in 11/2014, after CT scan noted them. One scan was 1.4 cm the other 0.7, and repeat sono last week it appeared one was resolved. Will repeat the sono in 6 weeks ot see if the other resolves, as they may just represent peritoneal inclusion cysts Sarah Adkins MD [address] [facility],[address], [place], [address], [facility], 03/30/2016 14:17:41 OBGyn Episode No OBEpisode recorded.
--- OUTSIDE RECORDS SUMMARY | 2024-08-01 14:27 | XMS_ITS | Encounter Summary ---
Author Organization [facility] Address [address] [place] [address] Care Team Providers Care Lab Rep Name Role Phone Jimbo Hopkins DO Primary Care Provider [phone] Reason for Visit * Reason Comments Fracture * Consultation (Routine) - Closed Specialty Diagnoses / Procedures Referred By Adarsh palomino Referred To Contact Orthopaedics / Orthopaedic Surgery Diagnoses Closed fracture of right wrist Glenroy Palacio MD [address] [place] [address] Phone: tel: fax: Presley Pandey MD [address] [place] [address] Phone: tel: fax: Referral ID Status Reason Start Date Expiration Date V isits Requested Visits Authorized [id number] Closed Specialty Services Required 07/23/2024 07/23/2025 1 1 Encounter Details Date Type Department Care Team (Late st Contact Info) Description 07/24/2024 11:30 AM EST Office Visit Orthopedic Surgery - [place] 250 175 [facility] 250 [place] [phone] Presley Pandey MD [address] [address] Right wrist pain (Primary Dx); Closed fracture of right distal radius and ulna, initial encounter Social History Tobacco Use Types Packs/Day [...] Carolyne Queen RN documented in this encounter Ordered Prescriptions Prescription Sig Dispense Quantity Refills Last Filled Start Date End Date ibuprofen (ADVIL,MOTRIN) 800 mg tablet Take 1 tablet (800 mg total) by mouth 3 (three) times a day. 90 each 07/24/2024 5 acetaminophen (Tylenol Extra Strength) 500 mg tablet Take 1 tablet (500 mg total) by mouth every 6 (six) hours if needed for mild pain for up to 10 days. 30 tablet 07/24/2024 5 oxyCODONE (OXY-IR) 5 mg immediate release capsule Take 1 capsule (5 mg total) by mouth every 6 (six) hours if needed for severe pain. Max Daily Amount: 20 mg 30 capsule 07/24/2024 documented in this encounter Progress Notes * Presley Pandey MD - 07/24/2024 11:30 AM ESTAssociated Order(s): Casting Post-Procedure Diagnose(s): Closed fracture of right distal radius and ulna, initial encounter Date: July 24, 2024 Chief Complaint: Right distal radius fracture Date of injury/duration of symptoms: 07/23/2024 HPI: Vale Zimmerman is a [id number] 79 y.o. female independent community ambulator with no significant past medical history presenting for right distal radius fracture sustained on 07/23/2024 (yesterday after slipping on ice and falling. She did have a head strike. Denies loss of consciousness.She was evaluated at [facility] ED where she underwent closed reduction and splinting and CT of the head. She did report that she had some numbness and tingling in her index and middle finger but it resolved today in office after removing her splint. She does admit to significant pain today. She is veryhesitant about having surgery at this time as she has had an increase in life stressors due to her 's diagnosis of Parkinson's disease. 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 Emergency Department records from 07/23/2024 independent reviewed today including documentation by Dr. Shreyas Palacio MD where she underwent a closed reduction. PMH Healthy PSH No relevant PSH No family history on file. 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 Max Daily Amount: 20 mg, Disp: 12 capsule, Rfl: 0 No current facility-administered medications for this visit. No Known Allergies Objective Focused Exam: Right Upper Extremity Skin intact, there is swelling and ecchymosis around the dorsal aspect of the wrist. Fires EPL/FPL/FDP/IO/APB SILT M/R/U hand warm well perfused Palpable radial pulse Brisk capillary refill less than 2 seconds Imaging/diagnostic studies: Three-view x-ray of the right wrist obtained 07/23/2024 independently review today demonstrates a distal radius fracture with severe dorsal angulation, there appears to be comminution of the dorsal cortex, there is loss of radial height and 40 degrees of dorsal angulation. There is additional ulnar styloid avulsion fracture. There are degenerative changes at the thumb CMC joint as well as carpometacarpal joint and degenerative changes of the interphalangeal joint of the small finger 3 view x-rays of the right wrist obtained today show distal radius fracture with 20 degrees of dorsal angulation postreduction and casting. There is loss of radial height. There is an ulnar styloid avulsion fracture. Degenerative changes as noted above from 07/23/2024 Impression: Distal radius fracture with persistent 20 degrees of dorsal angulation and loss of radial height post closed reduction. Ulnar styloid avulsion fracture. X-rays obtained after immobilization in the cast show persistent dorsal angulation of [id number] degrees, there is minimal interval displacement or improvement in the alignment. Fracture pattern appears to be extra-articular Cast material obscures fine osseous detail Impression: Extra-articular articular distal radius fracture with persistent dorsal angulation, overlying cast material Medical Decision Making (base on 2 out of 3 elements): Problems Addressed: Moderate- 1 acute, complicated injury Tests Ordered and/or Reviewed: Moderate-Independent interpretation of a diagnostic testing or treatment (not separately reported): X-ray right wrist from 07/23/2024 independently reviewed today Risk Level: Moderate risk: counseling regarding moderate risk procedure discussed surgery open reduction internal fixation right wrist Assessment: Vale Zimmerman presents with acute traumatic distal radius fracture and ulnar styloid avulsion fracture sustained on 07/23/2024. X-rays of the right wrist obtained today postreduction and casted show 20 degrees of dorsal angulation with loss of radial height. We discussed operative and nonoperative treatment. Due to her high demand status, severe dorsal angulation on injury, ulnar styloid fracture persistent dorsal angulation after attempted closed reduction attempt in the emergency department I did recommend operative treatment which would allow sabianism of her alignment, stabilization of her fracture and likely early range of motion of her wrist. We also discussed nonoperative treatment. Nonoperative treatment would involve placement in a cast and monitoring for worsening angulation. This will require maintaining her cast clean dry and intact, remaining nonweightbearing and likely excepting a degree of malunion and deformity. She may be at risk for loss of function in her wrist and hand and loss of pronation supination. After voicing understanding of the risk of benefits of operative and nonoperative treatment and acknowledging my recommendation for operative treatment she elected to pursue nonoperative treatment with immobilization in a cast. We discussed a mold to prevent displacement of her fracture with a hematoma block. Discussed possibly immobilizing her in a long-arm cast versus short arm cast, she was insistent that she be immobilized in a short arm cast. Using sterile technique 7 cc of 1% lidocaine plain was injected into the dorsal distal radius at the hematoma site. She was then placed in a well-padded and well molded cast with a 3 point mold. We also reviewed the imaging in her cast and again discussed her persistent deformity. She voiced understanding and would like to continue with nonop treatment. We will see her back along with repeatx-rays to make sure she does not have significant interval displacement. She is remain nonweightbearing we provided cast care instructions. Casting Date/Time: 07/24/2024 1:16 PM Performed by: Presley Pandey MD Authorized by: Presley Pandey MD Consent given by: patient Injury Location details: right forearm Pre-procedure assessment Distal perfusion: normal Distal sensation: normal Range of motion: reduced Procedure Manipulation performed? manipulation performed Immobilization: cast Cast type: short arm Supplies used: Ortho-Glass Post-procedure assessment Distal perfusion: normal Distal sensation: normal Range of motion: improved Patient tolerance: patient tolerated the procedure well with no immediate complications Plan: Right distal radius fracture -NWB RUE/short arm cast -Follow-up in 1 week with repeat x-rays in her cast Presley Pandey MD documented in this encounter Plan of Treatment Upcoming Encounters Date Type Department Care Team (Late st Contact Info) Description 08/07/2024 4:00 PM EST Office Visit Orthopedic Surgery - [place] 250 175 [facility] [address] [place] [phone] Presley Pandey MD [address] [place] [address] documented as of this encounter Procedures Procedure Name Priority Date/Time Associated Diagnosis Comments CAST APPLICATION Routine 07/24/2024 1:16 PM EST Closed fracture of right distal radius and ulna, initial encounter documented in this encounter Results * Casting (07/24/2024 1:16 PM EST) Narrative Presley Pandey MD - 07/24/2024 1:16 PM EST Presley [...] Result * XR Wrist 3+ Views Right (07/24/2024 12:44 PM EST) Anatomical Region Laterality Modality Upper Extremities, Wrist Right Compute d Radiography Narrative 07/24/2024 4:51 PM EST X-rays obtained after immobilization in the cast show persistent dorsal angulation of approximately 15 degrees, there is minimal interval displacement or improvement in the alignment. ??Fracture pattern appears to be extra-articular. Cast material obscures fine osseous detail. Impression: Extra-articular articular distal radius fracture with persistent dorsal angulation, overlying cast material Presley Pandey MD IMG XR PROCEDURES Final Result * XR Wrist 3+ Views Right (07/24/2024 11:32 AM EST) Anatomical Region Laterality Modality Upper Extremities, Wrist Right Compute d Radiography Narrative 07/24/2024 4:49 PM EST 3 view x-rays of the right wrist obtained today show distal radius fracture with 20 degrees of dorsal angulation postreduction and casting. ?? There is loss of radial height. ??There is an ulnar styloid avulsion fracture. ??Degenerative changes as noted above from 07/23/2024 Impression: Distal radius fracture with persistent 20 degrees of dorsal angulation and loss of radial height post closed reduction. ??Ulnar styloid avulsion fracture. Presley Pandey MD IMG XR PROCEDURES Final Result documented in this encounter Visit Diagnoses Diagnosis Right wrist pain- Primary Pain in joint, forearm Closed fracture of right distal radius and ulna, initial encounter documented in this encounter Discontinued Medications Medication Sig Discontinue Reason Start Date End Da te oxyCODONE (OXY-IR) 5 mg immediate release capsule Take 1 capsule (5 mg total) by mouth every 6 (six) hours if needed for severe pain. Max Daily Amount: 20 mg 07/23/2024 07/24/2024 documented as of this encounter Orders Outpatient Referral Count Last Ordered Date Fir st Ordered Date AMB REFERRAL TO ORTHOPEDIC 1 07/24/2024 documented in this encounter Care Teams Lab Rep Relationship Specialty Start Date End Date Jimbo Hopkins DO [address] [place] [address] PCP - General Family Medicine 05/28/24 documented as of this encounter
== END 2024-08-01 15:11 | disposition home or self-care (01) ==
PROVIDERS: PCP Family Medicine; Visit Provider Orthopaedic Surgery
DX: S52.501A Unspecified fracture of the lower end of right radius, initial encounter for closed fracture (principal)
CPT/HCPCS: 99203

== ENCOUNTER 2024-08-01 13:03 | Outpatient (REF) | payer MEDICARE, OTHER, SELFPAY ==
--- NOTE | ~2024-08-01 | XR_ITS ---
EXAMINATION: XR WRIST 3 OR MORE VIEWS RIGHT HISTORY: M25.531 - Pain in right wrist COMPARISON: There are no prior studies available for comparison. FINDINGS: Three casted views of the right wrist are submitted. The fiberglass cast secures fine bony detail. There is a comminuted transverse fracture of the distal radius with dorsal angulation of the distal fracture fragment. There is an associated fracture of the ulnar styloid. The joint spaces are preserved. The soft tissues are unremarkable. XR/XR wrist RT min 3V IMPRESSION: Casted views of the right wrist demonstrate a comminuted transverse fracture of the distal radius with an associated ulnar styloid fracture. Electronically signed by: Jeison Barron MD 08/01/2024 02:43 PM JEMAL LUTHER
--- OUTSIDE RECORDS SUMMARY | 2024-08-01 15:18 | XMS_ITS | Encounter Summary ---
Author Organization [facility] Address [address] [place] [address] Care Team Providers Care Pack Press Operator Name Role Phone Jimbo Hopkins DO Primary Care Provider [phone] Reason for Visit * Reason Comments Fracture * Consultation (Routine) - Closed Specialty Diagnoses / Procedures Referred By Adarsh palomino Referred To Contact Orthopaedics / Orthopaedic Surgery Diagnoses Closed fracture of right wrist Glenroy Palacio MD [address] [place] [address] Phone: tel: fax: Presley Pandey MD [address] [place] [address] Phone: tel: fax: Referral ID Status Reason Start Date Expiration Date V isits Requested Visits Authorized [id number] Closed Specialty Services Required 07/23/2024 07/23/2025 1 1 Encounter Details Date Type Department Care Team (Late st Contact Info) Description 07/24/2024 11:30 AM EST Office Visit Orthopedic Surgery - [place] 250 175 [facility] 250 [place] [phone] Presley Pandey MD [address] [address] Right wrist pain (Primary Dx); Closed fracture [...] symptoms: 07/23/2024 HPI: Vale Zimmerman is a [id number]-mwwnuoze 79 y.o. female independent community ambulator with no significant past medical history presenting for right distal radius fracture sustained on 07/23/2024 (yesterday after slipping on ice and falling. She did have a head strike. Denies loss of consciousness.She was evaluated at [facility] ED where she underwent closed reduction [...] history on file. 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 [...] the cast show persistent dorsal angulation of [id number] degrees, there is minimal interval displacement or [...] did recommend operative treatment which would allow taoism of her alignment, stabilization of her fracture [...] PM EST Office Visit Orthopedic Surgery - [place] 250 175 [facility] [address] [place] [phone] Presley Pandey MD [address] [place] [address] documented as of this encounter Procedures Procedure [...] 07/24/2024 documented in this encounter Care Teams Pack Press Operator Relationship Specialty Start Date End Date Jimbo Hopkins DO [address] [place] [address] PCP - General Family Medicine 05/28/24 documented as of this encounter
--- OUTSIDE RECORDS SUMMARY | 2024-08-01 15:19 | XMS_ITS | Encounter Summary ---
Author Organization [facility] Address [address] [place] [address] Care Team Providers Care Alumnae Secretary Name Role Phone Hopkins, Gary Primary Care Provider [phone] Encounter Details Date Type Department Care Team (Late st Contact Info) Description 07/23/2024 Telephone Orthopedic Surgery - [place] 175 [facility] [address] [place] [phone] [facility] Social History Tobacco Use Types [...] PM EST Office Visit Orthopedic Surgery - [place] 250 175 [facility] [address] [place] [phone] Presley Pandey MD 175 [facility] [address] [place] [address] documented as of this encounter Visit Diagnoses Not on filedocumented in this encounter Care Teams Alumnae Secretary Relationship Specialty Start Date End Date Jimbo Hopkins DO [address] [place] [address] PCP - General Family Medicine 05/28/24 documented as of this encounter
--- OUTSIDE RECORDS SUMMARY | 2024-08-01 15:19 | XMS_ITS | Encounter Summary ---
Author Organization [facility] Address [address] [place] [address] Care Team Providers Care Glue Sprayer Name Role Phone Jimbo Hopkins DO Primary Care Provider [phone] Reason for Referral * Consultation (Routine) - Closed Specialty Diagnoses / Procedures Referred By Adarsh palomino Referred To Contact Orthopaedics / Orthopaedic Surgery Diagnoses Closed fracture of right wrist Glenroy Palacio MD [address] [place] [address] Phone: tel: fax: Presley Pandey MD [address] [address] Phone: tel: fax: Referral ID Status Reason Start Date Expiration Date V isits Requested Visits Authorized [id number] Closed Specialty Services Required 07/23/2024 07/23/2025 1 1 Reason for Visit * Reason Comments Wrist Injury Pt slipped and fell on ice. Obvious deformity to right wrist Encounter Details Date Type Department Care Team (Late st Contact Info) Description 07/23/2024 1:56 AM EST - 07/23/2024 7:08 AM EST Emergency [facility] Emergency [address] [place] [address] Glenroy Palacio MD [address] [place] [address] Closed fracture of right wrist, initial encounter [...] soon! Thank you for coming to the [facility] Emergency Department today. Our entire team works [...] through Care Everywhere. * Cast Care: Fiberglass (Kittitian) * Wrist Fracture (Kittitian) documented in this encounter Medications at Time [...] right wrist pain right knee pain * Glenroy Palacio MD - 07/23/2024 1:38 AM ESTAssociated [...] 2 mg (2 mg intravenous Given 07/23/24 4434) lidocaine (XYLOCAINE) 1 % injection 5 mL (5 mL infiltration Given 07/23/24 3282) morphine 2 mg/mL injection 2 mg (2 mg intravenous Given 07/23/24 5814) Clinical Impressions as of 07/23/24 0627 Closed [...] yes Risks discussed: Pain and nerve damage Monroe protocol: Procedure explained and questions answered to [...] PM EST Office Visit Orthopedic Surgery - [place] 250 175 [facility] [address] [place] [phone] Presley Pandey MD 175 [facility] [address] [place] [address] Scheduled Referrals Name Type Priority Associated Diagnoses Order Schedule Ambulatory referral to Orthopedic Outpatient Referral Routine Expected: 07/30/2024, Expires: 07/23/2025 documented as of this encounter Procedures Procedure Name Priority Date/Time Associated Diagnosis Comments HC TREATMENT FRACTURE W/MANIPULATION Routine 07/23/2024 6:26 AM EST CA CLOSED TX DISTAL RADIUS FRACTURE/EPIPHYSEAL SEPARATION W/ MANIPULATION Routine 07/23/2024 6:[address] HEAD WO CONTRAST STAT 07/23/2024 3 :24 AM EST XR WRIST 3+ VIEWS RIGHT STAT 07/23/2024 1:57 AM EST documented in this encounter Results * CA CLOSED TX DISTAL RADIUS FRACTURE/EPIPHYSEAL SEPARATION W/ [...] yes ?Risks discussed: ??Pain and nerve damage Monroe protocol: ??Procedure explained and questions answered to [...] of the ulnar styloid process. Telerad CARINA ([id number]) -------- FINAL REPORT -------- Dictated By: Verena Ruiz Dictated Date: 07/23/2024 09:02 ET Assigned Physician: Verena Ruiz Reviewed and Electronically Signed By: Verena Ruiz Signed Date: 07/23/2024 09:03 ET Workstation ID: [id number] Transcribed By: Self Edit Transcribed Date: 07/23/2024 [...] of the ulnar styloid process. Teleneftali LIM ([id number]) -------- FINAL REPORT -------- Dictated By: Verena Ruiz Dictated Date: 07/23/2024 09:02 ET Assigned Physician: Verena Ruiz Reviewed and Electronically Signed By: Verena Ruiz Signed Date: 07/23/2024 09:03 ET Workstation ID: [id number] Transcribed By: Self Edit Transcribed Date: 07/23/2024 [...] 07/23/2024 documented in this encounter Care Teams Glue Sprayer Relationship Specialty Start Date End Date Jimbo Hopkins DO [address] [place] [address] PCP - General Family Medicine 05/28/24 documented as of this encounter
--- OUTSIDE RECORDS SUMMARY | 2024-08-01 15:19 | XMS_ITS | Encounter Summary ---
Author Organization [facility] Address [address] [place] [address] Care Team Providers Care Lead Programmer Name Role Phone Jimbo Hopkins Primary Care Provider [phone] Reason for Visit * Reason Comments Hand Pain Fu rt hand Encounter Details Date Type Department Care Team (Late st Contact Info) Description 07/31/2024 1:45 PM EST Office Visit Orthopedic Surgery - [place] [address] [facility] [address] [place] [phone] Presley Pandey MD 175 [facility] [address] [place], [place] [phone] Follow-up exam (Primary Dx); Closed extra-articular fracture [...] to verify the correct patient, procedure, equipment, client application support specialist and site/side marked as required Injury Location [...] PM EST Office Visit Orthopedic Surgery - [place] 250 [address] [facility] [address] [place] [phone] Presley Pandey MD [address] [facility] [place] [address] documented as of this encounter Procedures Procedure [...] to verify the correct patient, procedure, equipment, client application support specialist and site/side marked as required Injury Location [...] encounter documented in this encounter Care Teams Lead Programmer Relationship Specialty Start Date End Date Jimbo Hopkins DO [address] [place], [place] PCP - General Family Medicine 05/28/24 documented as of this encounter
--- OUTSIDE RECORDS SUMMARY | 2024-08-01 15:19 | XMS_ITS | Clinical Summary ---
Author Organization [facility] Address [address] [place] [address] Phone Care Team Providers Care Ball Winder Name Role Phone Jimbo Hopkins Primary Care Provider [phone] Allergies No known active allergies Medications oxyCODONE [...] 1:45 PM EST Office Visit Orthopedic Surgery [facility] [address] [facility] [address] [place] [phone] Presley Pandey MD Follow-up exam (Primary Dx); Closed extra-articular fracture of distal end of right radius with malunion, subsequent encounter 07/24/2024 11:30 AM EST Office Visit Orthopedic Surgery [facility] [address] [facility] 250 [place] [phone] Presley Pandey MD Right wrist pain (Primary Dx); Closed fracture of right distal radius and ulna, initial encounter 07/23/2024 1:56 AM EST - 07/23/2024 7:08 AM EST Emergency [facility] Emergency [address] [place] [phone] Glenroy Palacio MD Closed fracture of right wrist, initial encounter (Primary Dx) Discharge Disposition: Home or Self Care 07/23/2024 Telephone Orthopedic Surgery [facility] 175 [facility] 140 [place] [phone] [facility] 06/25/2024 2:24 PM EST - 06/25/2024 11:59 PM EST Hospital [facility] [address] [address] Breast calcification, right Discharge Disposition: Home or Self Care 06/04/2024 1:47 PM EST - 06/04/2024 11:59 PM EST Hospital Encounter [facility] at [address] [address] Encounter for screening mammogram for breast cancer [...] PM EST Office Visit Orthopedic Surgery - [place] [address] [facility] [address] [place] [phone] Presley Pandey MD [address] [facility] [address] [place] [address] Health Maintenance Due Date Last Done Comments [...] FRACTURE W/MANIPULATION Routine 07/23/2024 6:26 AM EST GA CLOSED TX DISTAL RADIUS FRACTURE/EPIPHYSEAL SEPARATION W/ [...] to verify the correct patient, procedure, equipment, instructional support assistant and site/side marked as required Injury Location [...] IN CLINIC/BEDSIDE ORDERABLES Fin al Result * GA CLOSED TX DISTAL RADIUS FRACTURE/EPIPHYSEAL SEPARATION W/ [...] yes ?Risks discussed: ??Pain and nerve damage [place] protocol: ??Procedure explained and questions answered to [...] Signed Date: 06/25/2024 15:16 ET Workstation ID: [id number] Transcribed By: Self Edit Transcribed Date: 06/25/2024 [...] Signed Date: 06/25/2024 15:16 ET Workstation ID: [id number] Transcribed By: Self Edit Transcribed Date: 06/25/2024 15:09 ET Jimbo Hopkins DO IMG BI PROCEDURES Final Result * (ABNORMAL) MG Mammo Digital Screening w Aston bilat (06/04/2024 2:11 PM EST) Anatomical Region Laterality Modality Breast Bilateral Mammography 06/06/2024 12:4 2 PM EST Impressions 06/06/2024 12:53 PM EST Increasing calcifications in the right upper outer breast. ??Additional imaging recommended. BI-RADS CATEGORY: 0 - INCOMPLETE - NEED ADDITIONAL IMAGING EVALUATION RECOMMENDATION: Additional right breast imaging recommended. ?? Mammo Location: [facility], [address] [place] [address], [address], . -------- FINAL REPORT -------- Dictated By: HARJIT BARKLEY Dictated Date: 06/06/2024 12:42 ET Assigned Physician: HARJIT BARKLEY Reviewed and Electronically Signed By: HARJIT BARKLEY Signed Date: 06/06/2024 12:53 ET Workstation ID: [id number] Transcribed By: Self Edit Transcribed Date: 06/06/2024 [...] recommended. Mammo Location: [facility], [address] [place] [address], [address], . -------- FINAL REPORT -------- Dictated By: HARJIT BARKLEY Dictated Date: 06/06/2024 12:42 ET Assigned Physician: HARJIT BARKLEY Reviewed and Electronically Signed By: HARJIT BARKLEY Signed Date: 06/06/2024 12:53 ET Workstation ID: [id number] Transcribed By: Self Edit Transcribed Date: 06/06/2024 12:42 ET us Self Referral Sppl IMG BI PROCEDURES Final Resul t from Last 3 Months Insurance MEDICARE [facility] Care Teams Ball Winder Relationship Specialty Start Date End Date Jimbo Hopkins DO [address] [place] [address] PCP - General Family Medicine 05/28/24
== END 2024-08-01 13:04 | disposition home or self-care (01) ==
LOC: HO.HOSX 13:03
PROVIDERS: PCP Family Medicine; Visit Provider Orthopaedic Surgery
DX: M25.531 Pain in right wrist (principal); S52.501A Unspecified fracture of the lower end of right radius, initial encounter for closed fracture
CPT/HCPCS: 73110; 99202

== ENCOUNTER → 2024-08-01 14:16 | Outpatient (BNV) | payer MEDICARE, OTHER, SELFPAY | PROVIDERS: PCP Family Medicine; Visit Provider Radiology Diagnostic Radiology | DX: M25.531 Pain in right wrist (principal) | CPT/HCPCS: 73110 ==

== ENCOUNTER 2024-08-29 08:56 | Outpatient (REF) | payer MEDICARE, OTHER, SELFPAY ==
--- NOTE | ~2024-08-29 | XR_ITS ---
EXAMINATION: XR WRIST 3 OR MORE VIEWS RIGHT HISTORY: M25.531 - Pain in right wrist COMPARISON: Comparison is made with the prior examination dated 08/01/2024. FINDINGS: Three views of the right wrist are submitted. Osseous mineralization is normal. Again seen is a comminuted fracture of the distal radial metaphysis with dorsal angulation of the distal fracture fragment. The fracture lines remain visible. An ununited ulnar styloid fracture is also seen. The joint spaces are preserved. The soft tissues are unremarkable. XR/XR wrist RT min 3V IMPRESSION: Comminuted fracture of the distal radial metaphysis without significant change. Electronically signed by: Jeison Barron MD 08/29/2024 12:56 PM EDT
== END 2024-08-30 08:54 | disposition home or self-care (01) ==
LOC: HO.HOSX 08:56
PROVIDERS: Visit Provider Orthopaedic Surgery
DX: S52.501A Unspecified fracture of the lower end of right radius, initial encounter for closed fracture (principal); M25.641 Stiffness of right hand, not elsewhere classified; M25.531 Pain in right wrist
CPT/HCPCS: 73110; 99212

== ENCOUNTER 2024-08-29 10:54 | Outpatient (AMB) | payer MEDICARE, OTHER, SELFPAY ==
--- NOTE | 2024-08-29 10:58 | MHC.OFFVIS ---
Intake Visit Reasons: ov-RT wrist fx DOI 07/23/24 Intake Note: Benjamin 79 yr old - hand dominant female presents today for her follow up visit for her right hand distal radius fracture from 07/23/24. States she returned to [facility] where her cast was removed and she signed a release form. States she no longer wants to be seen with them and wants to continue services with Dr Banegas Currently states she is better but is not able to make a full close fist. She has soreness in her wrist possible due to being 4 weeks in a cast. Allergies No Known Allergies Allergy (Verified 08/29/24 11:00) HPI HPI ov-RT wrist fx DOI 07/23/24: Details: Benjamin is a 79 year old right hand dominant woman who presents for a right distal radius fracture, S/P fall on ice, DOI: 07/23/24. This was managed by [facility] but she does not wish to continue care with them. She was last seen on ~08/20/24 for cast removal before having her records transferred over here. She complains of some pain in her hand, along with stiffness in her fingers. She has hand osteoarthritis which makes it somewhat difficult to move her small finger. She says she cares for her disabled at home. He is currently in the hospital after a fall, and is scheduled for a cholecystectomy. [facility] Medical History (Updated 08/29/24 @ 11:19 by Arthur Sullivan) Lumbar spondylosis Social History (Updated 08/29/24 @ 11:00 by Maite Johnson [facility]) Current occupational status: retired Review of Systems Const All systems reviewed & are unremarkable except as noted in HPI and below Physical Exam Const General: no acute distress and alert Orientation/consciousness: patient oriented x3 Neuro General: patient oriented x3 Extrem Other: Evaluation of Right Upper Extremity: The patient is alert, oriented, and in no acute distress Neuro: Median, Ulnar, Radial nerves motor and sensory intact and sensation is normal to the tips of all digits Vascular: Cap refill brisk ROM: She does have some significant stiffness in her finger joints We worked on range of motion exercises today in clinic for more than 15 minutes With encouragement, she was then able to make a weak fist and extend all her digits, Wrist ROM: ~ 45 degrees pronation ~ 30 degrees supination Radiographs: 3 views of the right wrist were taken and viewed by me today in clinic. They show a distal radius fracture, transverse with intra-articular extension, with some shortening and loss of inclination on the AP view & ~22 degrees apex volar angulation seen on the lateral view. There is some evidence of interval bony healing. Psych Appearance: grossly normal Affect: normal affect Attitude: cooperative Office Procedures AMB Fracture Care Details: No fracture, manual hand therapy for greater than 15 minutes [id number] Fracture Billing Code: Fracture Billing Code Assessment & Plan Assessment & Plan (1) Fracture of right distal radius: Code(s): S52.501A - Unspecified fracture of the lower end of right radius, initial encounter for closed fracture Category: Medical (2) Stiffness of right hand joint: Code(s): M25.641 - Stiffness of right hand, not elsewhere classified Category: Medical Plan Assessment & Plan: 1. Right distal radius fracture, From a fall, DOI: 07/23/24 Reduced at [facility] 2. Right hand stiffness Secondary to being in a cast I educated her about this condition I discussed operative and non-operative treatment options. At this point her fracture is 5 weeks old, and as of next week she would require a corrective osteotomy as opposed to an ORIF. She is not interested in surgery at this time as she cares for her disabled Her cast was removed on ~08/20/24 at [facility], and she has discontinued her care with them. She will continue to wear her velcro wrist splint, to be worn when out of the house for the next 2 weeks. She will remove this when at home She will work on ROM exercises at home I ordered OT hand therapy to work on ROM, stretching, strengthening, and normalizing function She is to lift nothing heavier than ~5lbs for the next 4 weeks. She will follow up in 4-5 weeks for a ROM check. No X-rays unless she has a new injury Scribed for Rossana Banegas MD by Arthur Sullivan medical surgical tech, on 08/29/24 at 11:15 AM, EST. Orders: Orders OT Evaluation and Treatment Today M25.641 - Stiffness of right hand, not elsewhere classified, S52.501A - Unspecified fracture of the lower end of right radius, initial encounter for closed fracture XR wrist RT min 3V Today M25.531 - Pain in right wrist Coding Level of Care Code Est Pt Level 3 (82894) Diagnoses Fracture of right distal radius S52.501A Stiffness of right hand joint M25.641 CPT Codes Fracture Care - Fracture Billing Code: Fracture Billing Code ([id number])
--- OUTSIDE RECORDS SUMMARY | 2024-08-29 12:43 | XMS_ITS | Clinical Summary ---
Author Organization [facility] Address [address] [place] [address] Phone Care Team Providers Care Incident Commander Name Role Phone Jimbo Hopkins Primary Care Provider [phone] Allergies No known active allergies Medications oxyCODONE (OXY-IR) 5 mg immediate release capsule Take 1 capsule (5 mg total) by mouth every 6 (six) hours if needed for severe pain. Max Daily Amount: 20 mg 30 capsule 07/24/2024 Active acetaminophen (Tylenol Extra Strength) 500 mg tablet Take 1 tablet (500 mg total) by mouth every 6 (six) hours if needed for mild pain for up to 10 days. 30 tablet 07/24/2024 08/03/19 25 ibuprofen (ADVIL,MOTRIN) 800 mg tablet Take 1 tablet (800 mg total) by mouth 3 (three) times a day. 90 each 07/24/2024 08/24/19 25 Encounters Date Type Department Care Team Description 08/22/2024 11:45 AM EST Office Visit Orthopedic Surgery [facility] 175 [facility] [address] [place] [address] Presley Pandey MD History of fracture (Primary Dx); Closed Colles' fracture of right radius with malunion, subsequent encounter 08/07/2024 4:00 PM EST Office Visit Orthopedic [facility] [address] [facility] [address] [place] [address] Presley Pandey MD Right wrist pain (Primary Dx); Closed extra-articular fracture of distal end of right radius with malunion, subsequent encounter 07/31/2024 1:45 PM EST Office Visit Orthopedic Surgery [facility] 250 [address] [facility] [address] [place] [address] Presley Pandey MD Follow-up exam (Primary Dx); Closed extra-articular fracture of distal end of right radius with malunion, subsequent encounter 07/24/2024 11:30 AM EST Office Visit Orthopedic Surgery [facility] [address] [address] Presley Pandey MD Right wrist pain (Primary Dx); Closed fracture of right distal radius and ulna, initial encounter 07/23/2024 1:56 AM EST - 07/23/2024 7:08 AM EST Emergency [facility] Emergency [address] [place] [address] Glenroy Palacio MD Closed fracture of right wrist, initial encounter (Primary Dx) Discharge Disposition: Home or Self Care 07/23/2024 Telephone Orthopedic [facility] 175 [facility] [address] [place] [address] [facility] 06/25/2024 2:24 PM EST - 06/25/2024 11:59 PM EST Hospital [facility] [address] [address] Breast calcification, right Discharge Disposition: Home or Self Care 06/04/2024 1:47 PM EST - 06/04/2024 11:59 PM EST Hospital Encounter [facility] [address] [place] [address] Encounter for screening mammogram for breast cancer [...] EST Inhaled Oxygen Concentration - - Weight 65.8 kg (145 lb) 08/22/2024 11:49 AM EST Height 170.2 cm (5' 7 ) 08/22/2024 11:49 AM EST Body Mass Index 22.71 08/22/2024 11:49 AM EST Plan of Treatment Upcoming Encounters Date Type Department Care Team (Late st Contact Info) Description 09/05/2024 1:00 PM EDT Office Visit Orthopedic Surgery - [place] [address] [facility] [address] [place] [phone] Presley Pandey MD [address] [facility] [address] [place] [address] Health Maintenance Due Date Last Done Comments [...] Procedure Name Priority Date/Time Associated Diagnosis Comments XR WRIST 3+ VIEWS RIGHT Routine 08/07/2024 3:57 PM EST Right wrist pain CAST APPLICATION Routine 07/31/2024 5:06 PM EST [...] FRACTURE W/MANIPULATION Routine 07/23/2024 6:26 AM EST IN CLOSED TX DISTAL RADIUS FRACTURE/EPIPHYSEAL SEPARATION W/ [...] cancer from Last 3 Months Results * XR Wrist 3+ Views Right (08/07/2024 3:57 PM EST) Only the most recent of5 resultswithin the time period is included. Anatomical Region Laterality Modality Upper Extremities, Wrist Right Compute d Radiography Narrative 08/07/2024 4:23 PM EST Three-view x-ray of the right wrist obtained today in clinic demonstrates previous distal radius fracture with approximately 21 degrees of dorsal angulation, this does not represent a significant change from radiographs obtained on 07/31/2024, cast material obscures fine osseous detail.Previously visualized ulnar styloid avulsion fracture, no other acute fractures. Impression: Unchanged alignment of dorsally angulated distal radius fracture. Presley Pandey MD IMG XR PROCEDURES Final Result * Casting (07/31/2024 5:06 PM EST) Narrative Presley Pandey MD - 07/31/2024 5:06 PM EST Presley Pandey MD ? 07/31/2024 ??5:08 PM Casting Date/Time: 07/31/2024 5:06 PM Performed by: Presley Pandey MD Authorized by: Presley Pandey MD Consent given by: patient Timeout: Immediately prior to procedure a time out was called to verify the correct patient, procedure, equipment, media production support manager and site/side marked as required [...] complications Presley Pandey MD IN CLINIC/BEDSIDE ORDERABLES Cipriano bennett Result * Casting (07/24/2024 1:16 PM EST) [...] Presley Pandey MD IN CLINIC/BEDSIDE ORDERABLES Fin donald Result * IN CLOSED TX DISTAL RADIUS FRACTURE/EPIPHYSEAL SEPARATION W/ [...] yes ?Risks discussed: ??Pain and nerve damage [place] protocol: ??Procedure explained and questions answered to [...] Signed Date: 06/25/2024 15:16 ET Workstation ID: [id number] Transcribed By: Self Edit Transcribed Date: 06/25/2024 [...] Signed Date: 06/25/2024 15:16 ET Workstation ID: [id number] Transcribed By: Self Edit Transcribed Date: 06/25/2024 15:09 ET Jimbo Hopikns DO IMG BI PROCEDURES Final Result * [...] ?? Mammo Location: [facility], [address] [place] [address], [address], . -------- FINAL REPORT -------- Dictated By: HARJIT BENITEZ Dictated Date: 06/06/2024 12:42 ET Assigned Physician: HARJIT BENITEZ Reviewed and Electronically Signed By: HARJIT BENITEZ Signed Date: 06/06/2024 12:53 ET Workstation ID: [id number] Transcribed By: Self Edit Transcribed Date: 06/06/2024 [...] may obscure small masses. Procedure Note Harjit Benitez MD - 06/06/2024 CLINICAL: 79 years old, [...] recommended. Mammo Location: [facility], [address] [place] [address], [address], . -------- FINAL REPORT -------- Dictated By: HARJIT BENITEZ Dictated Date: 06/06/2024 12:42 ET Assigned Physician: HARJIT BENITEZ Reviewed and Electronically Signed By: HARJIT BENITEZ Signed Date: 06/06/2024 12:53 ET Workstation ID: [id number] Transcribed By: Self Edit Transcribed Date: 06/06/2024 12:42 ET us Self Referral Sppl IMG BI PROCEDURES Final Resul t from Last 3 Months Insurance MEDICARE [facility] Care Teams Incident Commander Relationship Specialty Start Date End Date Jimbo Hopkins DO [address] [place], [place] PCP - General Family Medicine 05/28/24
--- OUTSIDE RECORDS SUMMARY | 2024-08-29 12:43 | XMS_ITS | Data Portability ---
Author Organization J[facility] - [facility],, SARAH ADKINS MD Address [address] [facility] [address] [place] [address] Assessment No assessment recorded. Plan of Treatment Reminders Order Date Submit Date Provider Last Modified By Organization Details Last Modified Time Details Appointments None recorded. Lab Pap test, slide(s), cervical 2014 015 [facility], Cytopathology Service, [address] [place], [address], 5 12:58:09 urinalysi s, dipstick, auto 2014 015 [email or web address] 1 In-Office Order, Internal Use Only DO Not Attach Compendium DO Not Attach Compendium, Do Not Delete/merge, [id number] 5 16:22:27 culture, urine 2014 015 [employer], [address] [place], [address], 5 05:02:09 urinalysi s, dipstick, auto 2014 015 [email or web address] 1 In-Office Order, Internal Use Only DO Not Attach Compendium DO Not Attach Compendium, Do Not Delete/merge, [id number] 5 13:45:51 culture, urine 2014 015 [employer], [address] [place], [address], 5 09:12:13 urinalysi s, dipstick 2014 015 [email or web address] 1 In-Office Order, Internal Use Only DO Not Attach Compendium DO Not Attach Compendium, Do Not Delete/merge, [id number] 5 10:57:12 culture, urine 2014 GAR[facility]NA [facility], [address] [place], [address], 5 09:22:17 ca 125, serum 2014 GARDENA Krave[facility]N [facility], [address] [place], [address], 5 09:23:44 Referral None recorded. Procedures None recorded. Surgeries None recorded. Imaging MAMMO, screening , digital, bilateral 2014 [facility] (Central Scheduling Radiology), [address] [place] [address], [address], 5 10:56:21 ultrasoun d, pelvic transabdo salud & transvagi nal - 2 cm right ovarian cyst noted on the CT scan at [facility] [address] [facility] (Central Scheduling Radiology), [address] [place] [address], [address], 5 20:17:30 Medication Orders Estrace 0.01% (0.1 mg/gram) vaginal cream 2014 015 [email or web address] 1 [facility] #[id number], [address] [place], [address], 5 16:22:28 Bactrim DS 800 mg-160 mg tablet 2014 015 suellen [facility] - [address], [id number], 5 14:17:48 Patient TargetsNo targets recorded. Patient Instructions Encounter Date Encounter Id Patient Instructions Last Modified By Organization Details Last Modified Time 11/01/2014 [id number] She is here to follow up on her recent pelvic CT at the [facility] where a 2 cm cystic lesion of the right ovary was noted, the left ovary was not found. she has had a hysterectomy. Pelvic sonogram and CA 125 is ordered, although the 2 cm simple cyst is likely benign.? ? ? She had been told that both ovaries were removed during her abdominal hysterectomy for endometriosis, however this may be an ovarian remnant, or she may have a recurrent endometrioma.? ? ? Will assess fluid density with sonogram. She is also here for urinary DIANE as she had a recent UTI, she feels it is not cleared fully yet. She had empirically begun on macrobid, felt improved while on it but off now for a few days and has dysuria back again. She has taken Bactrim? ? ?in the? ? ?past without a problem.? ? ? RX Bactrim DS given for likely UTI, await C and S results. Face to face discussion 25 minutes Not available 11/01/2014 10:57:12 11/12/2014 [id number] She is here for DIANE after recent UTI, notes her symptoms are resolved fully. She is to have a follow up sonogram soon, to assess the 2 cm right ovarian cyst Her son is 43 and has multiple health issues, she is paying for a lot of things for him and his family, it is? ? ?a strain? ? ?for her. Note from last year: She is here to follow up on her recent pelvic CT at the [facility] where a 2 cm cystic lesion of the right ovary was noted, the left ovary was not found. she has had a hysterectomy. ? ? ?Pelvic sonogram and CA 125 is ordered, although the 2 cm simple cyst is likely benign.? ? ? She had been told that both ovaries were removed during her abdominal hysterectomy for endometriosis, however this may be an ovarian remnant, or she may have a recurrent endometrioma.? ? ? Will assess fluid density with sonogram. ? ? ?She is also here for urinary DIANE as she had a recent UTI, she feels it is not cleared fully yet. She had empirically begun on macrobid, felt improved while on it but off now for a few days and has dysuria back again. She has taken Bactrim in the past without a problem.? ? ? RX Bactrim DS given for likely UTI, await C and S results. Face to face discussion 15 minutes Not available 11/12/2014 13:45:51 11/25/2014 [id number] painful urinatio n (dysuria): care instructions Not available 11/25/2014 16:22:28 She is here for a follow up after UTI.? ? ? She notes that she still feels a [...] 25 minutes Not available 11/25/2014 16:22:28 01/28/2015 [id number] She appears to b e doing well. [...] discovers any new mass in the breast. ? ? ? Seat belt use for herself and passengers [...] in detail. Not available 01/28/2015 14:46:11 03/30/2016 [id number] She is here for discussion of her [...] colonoscopy annually. Her GI doctor is at [facility]. She did tell her GI doctor that her brother was positive for the Colaris test. We discussed that she could do the single site testing for around 400 dollars, she is interested in doing this. She will return for single site genetic testing for Colaris testing. Face to face discussion 25 minutes Not available 03/30/2016 14:14:29 Reason for Referral [...] Attach Compendium, Do Not Delete/merge, 11/25/2014 14:41:18 11/26/1911/25/2014 urina lysis , dipst ick, auto ket negati ve Not Available In-Office Order Internal Use Only DO Not Attach Compendium DO Not Attach Compendium, Do Not Delete/merge, 11/25/2014 14:41:18 11/26/1911/25/2014 urina lysis , dipst ick, auto SG 1.020 Not Available In-Office Order Internal Use Only DO Not Attach Compendium DO Not Attach Compendium, Do Not Delete/merge, 11/25/2014 14:41:18 11/26/1911/25/2014 urina lysis , dipst ick, auto BLO NEGATI VE Not Available In-Office Order Internal Use Only DO Not Attach Compendium DO Not Attach Compendium, Do Not Delete/merge, 11/25/2014 14:41:11/26/1911/25/2014 urina lysis , dipst ick, auto PH 5.0 Not Available In-Office Order Internal Use Only DO Not Attach Compendium DO Not Attach Compendium, Do Not Delete/merge, 11/25/2014 14:41:18 11/26/1911/25/2014 urina lysis , dipst ick, auto PRO NEGATI VE Not Available In-Office Order Internal Use Only DO Not Attach Compendium DO Not Attach Compendium, Do Not Delete/merge, 11/25/2014 14:41:18 11/26/19 15 11/25/2014 urina lysis , dipst ick, auto URO [...] 11/13/1911/12/2014 urina lysis , dipst ick, auto MONSTER negati ve Not Available In-Office Order Internal Use Only DO Not Attach Compendium DO Not Attach Compendium, Do Not Delete/merge, 11/12/2014 13:17:21 11/13/1911/12/2014 urina lysis , dipst ick, auto ket negati ve Not Available In-Office Order Internal Use Only DO Not Attach Compendium DO Not Attach Compendium, Do Not Delete/merge, 11/12/2014 13:17:21 11/13/1911/12/2014 urina lysis , dipst ick, auto SG [...] DO Not Attach Compendium, Do Not Delete/merge, [id number] 11/01/2014 10:24:47 11/02/19 15 11/01/2014 ca 125, serum comments [facility] [address] [facility] [place] [address] [phone] Not Available [facility] [address] [place], [address], 11/02/2014 10:36:37 11/02/19 15 11/01/2014 ca 125, serum Ca125 11 U/mL <35 CA-12 5 resul t obtai kenneth by [employer] lumin escen t metho d. Not Available [facility] [address] [place], [address], 11/02/2014 10:36:37 11/02/19 15 11/01/2014 antib iotic sensi tivit y, isola te comments PAREN T ORGAN ISM: CITRO BACTE R FREUN DII ( CITFR E ) [facility] [address] [facility] [place] [address] [phone] SOURC E: URINE ,AYSE N CATCH ; Not Available [facility] [address] [place], [address], 11/04/2014 04:28:11 11/02/19 15 11/03/2014 antib iotic sensi tivit y, isola te gram negative susceptibili ty [facility] [address] [place] [address] TRIME THOPR IM/DONATO LFAME THOXA ZOLE <=20 [...] S F Not Available [facility] [address], [place], [address], 11/04/2014 04:28:11 11/02/19 15 11/01/2014 cultu re, urine comments [facility] [address] [facility] [place], [place] [address] [phone] SOURC E: URINE ,AYSE N CATCH ; Not Available [facility] [address] [place] [address], [address], 11/04/2014 05:31:21 11/02/19 15 11/03/2014 cultu re, urine urine culture [facility] [address] [address] URINE CULTU RE CITRO BACTE R FREUN DII ( CITFR E ) F URINE CULTU RE COLON Y COUNT F URINE CULTU RE 50,00 0-100 ,000 F Not Available [facility] [address] [place] [address], [address], 11/04/2014 05:31:21 11/13/19 15 11/12/2014 cultu re, urine comments [facility] at[facility] [address] [place] [address] [phone] SOURC E: URINE ,AYSE N CATCH ; Not Available [facility] [address] [place] [address], [address], 11/14/2014 09:12:13 11/13/19 15 11/13/2014 cultu re, urine urine culture [address] [address] URINE CULTU RE <10,0 00 CFU/m L F URINE CULTU RE GRAM POSIT SHELDON COCCI F Not Available [facility] [address] [place] [address], [address], 11/14/2014 09:12:13 11/26/19 15 11/25/2014 cultu re, urine comments [facility] [address] [place] [address] [phone] SOURC E: URINE ,AYSE N CATCH ; Not Available [facility] [address] [place] [address], [address], 11/27/2014 05:02:09 11/26/19 15 11/26/2014 cultu re, urine urine culture [facility] [address] [place] [address] URINE CULTU RE <10,0 00 CFU/m L F URINE CULTU RE GRAM POSIT SHELDON COCCI F Not Available [facility] [address] [place], [address], 11/27/2014 05:02:09 01/29/20 15 01/28/2015 pap, LB [id number] ThinP rep Pap, Image d: NEGAT SHELDON FOR SQUAM OUS INTRA EPITH ELIAL LESIO N AND MALIG JAYANT . Rosina acharya is prese nt. Serena Catalan [facility], CT( CP) (Case elect gabbi pinto jimi d 01 31 2015) ADEQU ACY: Satis facto ry. . SOURC E: ThinP rep Pap, Cervi bear, Image d CLINI BEAR INFOR MATALEYDA N: HPV If Diagn osis of ASCUS . LPS neg, menop ause, hyste recto my * Cytop athol ogy servi yandel provi ded by [facility] Yevgeniy gomezC. at the above addre ss. Not Available [facility], Cytopathology Service [address] [place], [address], 01/31/2015 12:16:36 10/31/19 15 10/28/2014 imagi ng/di agnos tic resul t No observ ation record ed. [email or web address] Not Available 2014 12:03:05 11/22/19 15 11/21/2014 ultra sound , pelvi c trans abdom inal & trans vagin al No observ ation record ed. [email or web address] [facility] [address] [place], [address], 11/25/2014 15:00:53 01/23/20 15 01/21/2015 ultra sound , pelvi c trans abdom inal & trans vagin al No observ ation record ed. [facility] [address] [place], [address], 01/28/2015 15:39:10 03/04/20 15 03/04/2015 ultra sound , pelvi c trans abdom inal & trans vagin al No observ ation record ed. [facility] [address] [place] [address], [address], 03/06/2015 10:52:41 03/10/20 15 03/04/2015 MAMMO , scree silvia, digit al, bilat eral No observ ation record ed. [facility] [address] [place], [address], 03/10/2015 15:01:05 03/12/20 15 03/12/2015 MAMMO , scree silvia, digit al, bilat eral No observ ation record ed. [address] [facility] [address] [place] [address], [address], 03/13/2015 08:39:43 03/13/20 15 03/12/2015 ultra sound , breas t No observ ation record ed. [address] [facility] [address] [place] [address], [address], 03/14/2015 08:14:31 09/10/19 16 09/10/2015 MAMMO , diagn ostic , digit al, unila teral No observ ation record ed. [facility] [address] [place] [address], [address], 09/15/2015 09:33:28 09/10/19 16 09/10/2015 ultra sound , pelvi c trans abdom inal & trans vagin al No observ ation record ed. [facility] [address] [place] [address], [address], 09/15/2015 09:33:28 03/25/20 16 03/25/2016 MAMMO , scree silvia, digit al, bilat eral No observ ation record ed. [facility] [address] [place], [address], 03/26/2016 10:26:15 03/25/20 16 03/25/2016 ultra sound , pelvi c trans abdom inal & trans vagin al No observ ation record ed. [facility] [address] [place], [address], 03/26/2016 14:00:23 04/19/20 17 04/18/2017 MAMMO , scree silvia, digit al, bilat eral No observ [facility]ion [facility] ed[email or web address] [address] [place], [address], 04/20/2017 07:37:54 Result Notes None recorded. 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 Sarah Adkins MD [address], [place], [address], [place] - [facility], 4 13:11:34 Urinary incontinenc e 136033053 Active Sarah Adkins MD [address], [place], [place], [place] - [facility], 4 13:11:34 Dysuria 47271020 Active Sarah Adkins MD [address], [place], [address], [place] - [facility], 5 16:22:27 Acute lower urinary tract infection 101829860 Active Sarah Adkins MD [address], [place], [address], [place] - [facility], 5 10:57:12 Cyst of ovary 41608431 Active Sarah Adkins MD [address], [place], [address], [place] - [facility], 6 13:04:57 Candidal vulvovagini tis 52008059 Active Sarah Adkins MD [address], [place], [address], [place] - [facility], 5 16:37:56 Mammography abnormal 111222040 Active Sarah Adkins MD [address], [place], [address], [place] - [facility], 6 13:04:57 Family history of genetic disorder carrier 722665360 Active brother tested positive for Colaris test Sarah Adkins MD [address], [place], [address], [place] - [facility], 4 13:28:57 Menopausal syndrome 601335265 Active Sarah Adkins MD [address], [place], [address], [place] - [facility], 4 13:28:57 Problem Notes None recorded. Procedures Surgical History Date Name Laterality Status Provider Name and Address Organization Details Recorded Time 01/29/20 15 Medicare Annual completed Beth Chance in [facility], 01/28/2015 14:22:27 06/20/18 91 Hysterectomy completed Seema Chance in [facility], 01/01/2013 11:40:33 06/20/18 86 Dilation and Curettage completed Seema Chance in [facility], 01/01/2013 11:40:33 06/20/18 80 Appendectomy completed Seema Pizano [place] - [facility], 01/01/2013 11:40:33 Imaging Results Imaging Date Name Status LastModified by Organization Details LastModified Time 10/28/2014 imaging/diagnostic result [facility] Information not available 10/31/2014 12:03:05 11/21/2014 ultrasound, pelvic transabdominal & transvaginal completed [facility] [address] [place] [address], [address], 11/25/2014 15:00:53 01/21/2015 ultrasound, pelvic transabdominal & transvaginal completed [facility] [address] [place] [address], [address], 01/28/2015 15:39:10 03/04/2015 ultrasound, pelvic transabdominal & transvaginal completed [facility] [address] [place] [address], [address], 03/06/2015 10:52:41 03/04/2015 MAMMO, screening, digital, bilateral completed [facility] [address] [place] [address], [address], 03/10/2015 15:01:05 03/12/2015 MAMMO, screening, digital, bilateral completed [address] [facility] [address] [place] [address], [address], 03/13/2015 08:39:43 03/12/2015 ultrasound, breast completed [address] [facility] [address] [place] [address], [address], 03/14/2015 08:14:31 09/10/2015 MAMMO, diagnostic, digital, unilateral completed [facility] [address] [place] [address], [address], 09/15/2015 09:33:28 09/10/2015 ultrasound, pelvic transabdominal & transvaginal completed [facility] [address] [place] [address], [address], 09/15/2015 09:33:28 03/25/2016 MAMMO, screening, digital, bilateral completed [facility] [address] [place] [address], [address], 03/26/2016 10:26:15 03/25/2016 ultrasound, pelvic transabdominal & transvaginal completed [facility] [address] [place] [address], [address], 03/26/2016 14:00:23 04/18/2017 MAMMO, screening, digital, bilateral completed [facility] [address] [place] [address], [address], 04/20/2017 07:37:54 Procedure Notes None recorded. Medical [...] 5 167.64 cm 23.8 kg/m2 85 /min 78843.2 04296 g 119 mm[Hg] 50 mm[Hg] Seema Pizano [place] - [facility], 5 10:24:27 Date Recorded Body weight Body height Body mass index (BMI) Heart rate Systolic blood pressure Diastolic blood pressure Provider Name and Address Organization Details Last Updated DateTime 5 84107.0 36811 g 167.64 cm 24.8 kg/m2 67 /min 104 mm[Hg] 61 mm[Hg] Seema Chance in [facility], 5 13:16:25 Date Recorded Body height Body weight Heart rate Body mass index (BMI) Systolic blood pressure Diastolic blood pressure Provider Name and Address Organization Details Last Updated DateTime 5 167.64 cm 27348.6 03153 g 73 /min 23.7 kg/m2 103 mm[Hg] 50 mm[Hg] Beth Chance in [facility], 5 14:49:18 Date Recorded Heart rate Body weight Body mass index (BMI) Body height Systolic blood pressure Diastolic blood pressure Provider Name and Address Organization Details Last Updated DateTime 5 86 /min 79256.0 4024 g 24.5 kg/m2 167.64 cm 116 mm[Hg] 69 mm[Hg] Beth Chance in [facility], 5 14:16:01 Date Recorded Body height Body weight Body mass index (BMI) Heart rate Systolic blood pressure Diastolic blood pressure Provider Name and Address Organization Details Last Updated DateTime 6 167.64 cm 02098.1 4 g 24.2 kg/m2 75 /min 136 mm[Hg] 79 mm[Hg] Seema Chance in [facility], 6 13:04:56 Social History Question Answer Notes LastModified by Organizat ion Details LastModified Time Tobacco Smoking Status Never Smoker Not Available [facility] 04/22/2020 03:19:39 What Is Your Level Of Alcohol Consumption? Moderate [id number] Information not available 04/22/2020 What Is Your Level Of Caffeine Consumption? Occasional [id number] Information not available 04/22/2020 What Type Of Diet Are You Following? REGULAR [id number] Information not available 04/22/2020 Which Illicit Or Recreational Drugs Have You Used? No [id number] Information not available 04/22/2020 Do You Reside In Or Have You Traveled To An Area Where Ebola Virus Transmission Is Active? 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 0 Information no t available 03/30/2016 High Number Of Sexual Partners No Information not available 03/30/2016 To Which Gender Do You Self-identify? Female Information not available 03/30/2016 Marital Status [email or web address] Informatio n not available 01/01/2013 Are You Sexually Active? Yes [id number] Information not available 04/22/2020 How Much Tobacco Do You Smoke? No [id number] Information not available 04/22/2020 General Stress Level High Information not available 01/01/2013 How Many Years Have You Smoked Tobacco? 0 [id number] Information not available 04/22/2020 Have You Recently (within The Last 12 Weeks, Or During A Current ) Traveled To Or Lived In A Zika-affected Area? No Information not available 03/30/2016 Sex: Unknown Functional Status Question Answer Note LastModified by Organizat ion Details LastModified Time What is your exercise level? Occasional [id number] Information not available 04/22/2020 Mental Status None [...] for MyRisk panel Y Autoimmune Condition N Kidney or Bladder Problems Y Thyroid Problems N Depression Y Lung Disease N GI Problems Y Defects or Inherited Disease N Anemia Y History of Ovarian Cancer N History of Breast Cancer N PAULINE exposure [...] unspecified formulation 3 completed JAY Stanley in [facility], 01/01/2013 11:40:33 Pneumococcal Conjugate, unspecified formulation 6 completed JAY Stanley in [facility], 03/30/2016 13:06:36 zoster live 6 completed JAY Stanley in [facility], 03/30/2016 13:06:56 Past Encounters Encounter ID Performer Location Encounter Start Date Encounter Closed Date Diagnosis/Indication Diagnosis SNOMED-CT Code Diagnosis ICD10 Code Diagnosis Note [id number] Seema ADKINS MD [address] [place] [address] 01/01/2013 11:12:02 01/02/2013 08:07:12 [id number] Seema ADKINS MD [address] [place] [address] 01/09/2013 13:00:21 01/10/2013 09:29:51 [id number] Seema ADKINS MD [address] [place] [address] 01/08/2014 12:46:45 01/08/2014 13:44:32 Screening for malignant neoplasm of cervix 716390133 Screening mammography 72975587 Menopausal syndrome 295218447 Atrophic vaginitis 92509616 Family his tory of genetic disorder carrier 562926597 [id number] Seema Harinder ADKINS MD [address] [facility],[place] [address] 06/14/2014 08:31:45 06/14/2014 09:54:49 Dysuria 97728188 [id number] Beth Minor SARAH ADKINS MD [address] [facility],[place] [address] 11/01/2014 10:09:00 11/01/2014 13:12:24 Acute lower urinary tract infection 652799415 Cyst of ovary 09874173 [id number] SARAH ADKINS MD [address] [place] [address],[place] [address] 11/12/2014 13:11:35 11/12/2014 16:03:17 Dysuria 24939033 [id number] SARAH ADKINS MD [address] [facility],[place] [address] 11/25/2014 14:38:36 11/26/2014 08:02:59 Dysuria 33744660 Atrophic vaginitis 80820793 [id number] SARAH ADKINS MD [address] [facility],[place] [address] 01/28/2015 14:08:30 01/29/2015 08:26:54 Screening mammography 73427153 Screening for malignant neoplasm of cervix 646547896 [id number] MD SARAH Ash MD [address] [facility],[place] [address] 03/30/2016 12:56:35 03/30/2016 14:16:18 Cyst of ovary 09608465 N83.201 Family his tory of genetic disorder carrier 933223654 Z84.81 Health Concerns Section Related Observation LastModified by Organization Detai ls LastModified Time None Recorded Concern Status LastModified by Organization Details LastModified Time None Recorded Advance Directives Directive None Recorded Payers Encounter Date Sequence Insurance Name Policy Number Policy Berrios Covered Member ID Berrios Member ID Guarantor Name 11/01/2014 1 [facility] - MEDICARE PREFERRED (MEDICARE REPLACEMENT HMO) GEOVANNY Ramirez [id number] Benjamin Zimmerman 11/12/2014 1 [facility] - MEDICARE PREFERRED (MEDICARE REPLACEMENT HMO) GEOVANNY franklin James [id number] ValeLuis Alberto Erasmo 11/25/2014 1 [facility] MEDICARE PREFERRED (MEDICARE REPLACEMENT HMO) GEOVANNY franklin James [id number] Benjamin Erasmo 01/28/2015 1 [facility] - MEDICARE PREFERRED (MEDICARE REPLACEMENT HMO) GEOVANNY franklin James [id number] 1 [id number] ValeDillon Erasmo 03/30/2016 1 [facility] - MEDICARE PREFERRED (MEDICARE REPLACEMENT HMO) GEOVANNY Sorianokle [id number] 1 [id number] Benjamin Zimmerman Notes Date Note Type Note [...] peritoneal inclusion cysts Sarah Adkins MD [address] [facility],[address], [place], [address], [place] - [facility], 03/30/2016 14:17:41 OBGyn Episode No OBEpisode recorded.
--- OUTSIDE RECORDS SUMMARY | 2024-08-29 12:43 | XMS_ITS | Encounter Summary ---
Author Organization [facility] Address [address] [place] [address] Care Team Providers Care Teleprinter Installer Name Role Phone Jimbo Hopkins DO Primary Care Provider [phone] Reason for Referral * Consultation (Routine) - Authorized Specialty Diagnoses / Procedures Referred By Adarsh palomino Referred To Contact Occupational Therapy Diagnoses Closed Colles' fracture of right radius with malunion, subsequent encounter Presley Pandey MD [address] [address] Phone: tel: fax: Referral ID Status Reason Start Date Expiration Date Visits Requested Visits Authorized [id number] Authorized Specialty Services Required 08/22/2024 08/22/2025 10 10 Reason for Visit * Reason Comments Follow-up Distal radius fractu re Encounter Details Date Type Department Care Team (Late st Contact Info) Description 08/22/2024 11:45 AM EST Office Visit Orthopedic Surgery - [place] [address] [phone] Presley Pandey MD [address] [address] History of fracture (Primary Dx); Closed Colles' [...] - Inhaled Oxygen Concentration - - Weight 65.8 kg (145 lb) 08/22/2024 11:49 AM EST Height 170.2 cm (5' 7 ) 08/22/2024 11:49 AM EST Body Mass Index 22.71 08/22/2024 11:49 AM EST documented in this encounter Functional [...] Progress Notes * Presley Pandey MD - 08/22/2024 11:45 AM EST Date: August 22, 2024 Diagnosis: right distal radius fracture sustained 07/23/24 being treated nonoperatively Last seen: 08/07/24 HPI: Vale Zimmerman is a 79 y.o. female presenting for followup regarding she has been in her short arm cast and this has been comfortable. She says she is working on her active and passive range of motion of her fingers but still has stiffness. Her pains been improving but she still has soreness particular on the ulnar side of her wrist. She has not had any falls or injuries, she unfortunately didhave to hospitalize her who had a recent fall. Objective Focused Exam: Right Upper Extremity Cast clean dry intact, this is removed today in clinic Her skin underneath is intact there is ecchymosis of the dorsal aspect of the hand She has no tenderness to palpation over the distal radius but she is tender to palpation over the distal ulna With full composite fist formation she is 3 cm tip to palm distance She is sensory intact light touch in the median radial and ulnar nerve distribution She fires EPL and FPL She has palpable radial pulse Imagin view x-rays of the right wrist shows right distal radius fracture with dorsal angulation. Dorsal angulation is measured as 23 degrees largely unchanged from radiographs on 08/07/24, there is evidence of callus formation dorsally. No interval displacement of the ulnar styloid avulsion fracture Impression: Unchanged alignment of dorsally angulated distal radius fracture. Medical Decision Making (base on 2 out of 3 elements): Problems Addressed: low: 1 stable acute illness Tests Ordered and/or Reviewed: Low Risk Level: Moderate risk: counseling regarding moderate risk procedure Assessment: Vale Zimmerman presents with right wrist extra-articular distal radius fracture being treated nonoperatively. We again discussed her dorsal angulation, we discussed at this stage she shows evidence of healing, operative fixation would require osteotomy for correction of her deformity. She declines operative intervention and that she continue with nonoperative treatment. I recommended a continued 2 weeks of nonweightbearing and protection with a removable brace. We will get into therapy for finger range of motion. Plan: Right distal radius fracture being treated nonoperatively 4 weeks from injury - Nonweightbearing to the right upper extremity in a removable wrist lacer - In therapy Follow-up 2 weeks Repeat x-rays of the right wrist Presley Pandey MD documented in this encounter Plan of Treatment Upcoming Encounters Date Type Department Care Team (Late st Contact Info) Description 09/05/2024 1:00 PM EDT Office Visit Orthopedic Surgery - [place] 175 [facility] [address] [place] [phone] Presley Pandey MD [address] [facility] [address] [place] [address] Pending Results Name Type Priority Associated Diagnoses Date /Time XR Wrist 3+ Views Right Imaging Routine History of fracture 08/22/2024 11:42 AM EST Scheduled Orders Name Type Priority Associated Diagnoses Orde r Schedule XR Wrist 3+ Views Right Imaging Routine History of fracture Expected: 08/22/2024, Expires: 08/22/2025 Scheduled Referrals Name Type Priority Associated Diagnoses Order Schedule Ambulatory referral to Occupational Therapy Outpatient Referral Routine Closed Colles' fracture of right radius with malunion, subsequent encounter 1 Occurrences starting 08/22/2024 until 08/22/2025 documented as of this encounter Visit Diagnoses Diagnosis History of fracture- Primary Personal history of traumatic fracture Closed Colles' fracture of right radius with malunion, subsequent encounter documented in this encounter Care Teams Teleprinter Installer Relationship Specialty Start Date End Date Jimbo Hopkins DO [address] [place], [place] PCP - General Family Medicine 05/28/24 documented as of this encounter
--- OUTSIDE RECORDS SUMMARY | 2024-08-29 12:43 | XMS_ITS | Encounter Summary ---
Author Organization [facility] Address [address] [place] [address] Care Team Providers Care Physical Security Engineer Name Role Phone Jimbo Hopkins Primary Care Provider [phone] Reason for Visit * Reason Comments Follow-up Distal radius fractu re Encounter Details Date Type Department Care Team (Late st Contact Info) Description 08/07/2024 4:00 PM EST Office Visit Orthopedic Surgery - [place] 250 [address] [facility] [address] [place] [phone] Presley Pandey MD 175 [facility] [address] [place] [address] Right wrist pain (Primary Dx); Closed extra-articular [...] - - Weight 65.8 kg (145 lb) 08/07/2024 3:57 PM EST Height 170.2 cm (5' 7 ) 08/07/2024 3:57 PM EST Body Mass Index 22.71 08/07/2024 3:57 PM EST documented in this encounter Functional [...] Progress Notes * Presley Pandey MD - 08/07/2024 4:00 PM EST Date: August 05, 2024 Diagnosis: right distal radius fracture sustained 07/23/24 being treated nonoperatively Last seen: 07/31/24 HPI: Vale Zimmerman is a 79 y.o. female presenting for followup regarding Her right distal radius fracture. She says that her pain has been controlled in the cast. She does have some tightness in the webspace which she says that the padding has worn otherwise her cast is comfortable. She reports continued difficulty with managing her 's health issues and he recently had a fall. She would like continue with nonoperative treatment. Objective Focused Exam: Right Upper Extremity Cast clean dry and intact There is some wear of the padding in the first webspace, skin is intact without erythema or breakdown Fires EPL FPL FDP and interossei Has pain with supination and pronation Fingers warm well-perfused with brisk cap refill Imaging: Three-view x-ray of the right wrist obtained today in clinic demonstrates previous distal radius fracture with approximately 21 degrees of dorsal angulation, this does not represent a significant change from radiographs obtained on 07/31/2024. No other new fractures, cast material obscures fine osseous detail Impression: Unchanged alignment of dorsally angulated distal radius fracture Medical Decision Making (base on 2 out of 3 elements): Problems Addressed: Low Tests Ordered and/or Reviewed: low Risk Level: Moderate risk: counseling regarding moderate risk procedure Assessment: Vale Zimmerman presents with Distal radius fracture, we reviewed her radiographs and explained the dorsal alignment. She has not had interval displacement which we find encouraging however we did discuss that operative intervention may improve her alignment and function. She like to continue with nonoperative treatment this time and we will have her remain in the cast, after we padded the areawhere the padding had worn out she says the cast was comfortable without pressure points. Plan: right distal radius fracture sustained 07/23/24 two weeks ago being treated nonoperatively -short arm cast padded with moleskin in the first [facility] R[facility] -f/u 1 week with repeat x-rays in the cast Presley Pandey MD documented in this encounter Plan of Treatment Upcoming Encounters Date Type Department Care Team (Late st Contact Info) Description 09/05/2024 1:00 PM EDT Office Visit Orthopedic Surgery - [place] 175 [facility] [address] [place] [phone] Presley Pandey MD 175 [facility] [address] [place] [address] documented as of this encounter Results * XR Wrist 3+ Views Right (08/07/2024 3:57 PM EST) Anatomical Region Laterality Modality Upper [...] pain- Primary Pain in joint, forearm Closed extra-articular fracture of distal end of right radius with malunion, subsequent encounter documented in this encounter Care Teams Physical Security Engineer Relationship Specialty Start Date End Date Jimbo Hopkins DO 24 [place], [place] PCP - General Family Medicine 05/28/24 documented as of this encounter
--- OUTSIDE RECORDS SUMMARY | 2024-08-29 12:43 | XMS_ITS | Encounter Summary ---
Author Organization [facility] Address [address] [place] [address] Care Team Providers Care Wood Filler Name Role Phone Jimbo Hopkins Primary Care Provider [phone] Reason for Visit * Reason Comments Hand Pain Fu rt hand Encounter Details Date Type Department Care Team (Late st Contact Info) Description 07/31/2024 1:45 PM EST Office Visit Orthopedic Surgery - [place] 250 [address] [facility] [address] [place] [phone] Presley Pandey MD 175 [facility] [address] [place], [place] [phone] Follow-up exam (Primary Dx); Closed extra-articular fracture [...] to verify the correct patient, procedure, equipment, research support specialist and site/side marked as required [...] PM EDT Office Visit Orthopedic Surgery - [place] 175 [facility] [address] [place] [phone] Presley Pandey MD [address] [facility] [address] [place] [address] documented as of this encounter Procedures Procedure [...] to verify the correct patient, procedure, equipment, research support specialist and site/side marked as required [...] encounter documented in this encounter Care Teams Wood Filler Relationship Specialty Start Date End Date Jimbo Hopkins DO [address] [place], [place] PCP - General Family Medicine 05/28/24 documented as of this encounter
== END 2024-08-29 11:31 | disposition home or self-care (01) ==
LOC: HO.HOS 10:54
PROVIDERS: PCP Family Medicine; Visit Provider Orthopaedic Surgery
DX: S52.501A Unspecified fracture of the lower end of right radius, initial encounter for closed fracture (principal); M25.641 Stiffness of right hand, not elsewhere classified
CPT/HCPCS: 99213

== ENCOUNTER → 2024-08-29 10:56 | Outpatient (BNV) | payer MEDICARE, OTHER, SELFPAY | PROVIDERS: Visit Provider Radiology Diagnostic Radiology | DX: M25.531 Pain in right wrist (principal) | CPT/HCPCS: 73110 ==

== ENCOUNTER 2024-09-26 13:53 | Outpatient (AMB) | payer MEDICARE, OTHER, SELFPAY ==
--- NOTE | 2024-09-26 13:56 | A.OFFVIS_ITS ---
Intake Visit Reasons: OV RT wrist fx DOI 07/23/24 Intake Note: Benjamin 79 yr old right hand dominant female presents today for her follow up visit for her right hand distal radius fracture from 07/23/24 ROM check. States she is having pain around her wrist and is radiating up to her arm and shoulder. States she only uses her brace when she is out and about. Allergies No Known Allergies Allergy (Verified 09/26/24 14:00) HPI HPI OV RT wrist fx DOI 07/23/24: Details: Benjamin is a 79 year old right hand dominant woman who returns for a right distal radius fracture, S/P fall on ice, DOI: 07/23/24. This was managed by [facility] but she does not wish to continue care with them. She was last seen on ~08/20/24 for cast removal before having her records transferred over here. She is here for a ROM check She says she is doing better, and has been attending OT hand therapy in [place]. She says she still has ulnar-sided wrist pain with some activities. She has been wearing her splint as instructed and working on ROM exercises at home. She says she cares for her disabled at home. [facility] Medical History (Updated 08/29/24 @ 11:19 by Arthur Sullivan) Lumbar spondylosis Social History Current occupational status: retired Physical Exam Const General: no acute distress and alert Orientation/consciousness: patient oriented x3 Neuro General: patient oriented x3 Extrem Other: Evaluation of Right Upper Extremity: The patient is alert, oriented, and in no acute distress Neuro: Median, Ulnar, Radial nerves motor and sensory intact and sensation is normal to the tips of all digits Vascular: Cap refill brisk ROM: She does have some stiffness in her finger joints, secondary to osteoarthritis With encouragement she could bring her fingers almost closed to a fist and back into full extension Wrist ROM: ~75 degrees pronation ~70 degrees supination ~40 degrees flexion ~50 degrees extension Her fracture is completely nontender and the DRUJ is stable. Psych Appearance: grossly normal Affect: normal affect Attitude: cooperative Assessment & Plan Assessment & Plan (1) Fracture of right distal radius: Code(s): S52.501A - Unspecified fracture of the lower end of right radius, initial encounter for closed fracture Category: Medical (2) Stiffness of right hand joint: Code(s): M25.641 - Stiffness of right hand, not elsewhere classified Category: Medical Plan Assessment & Plan: 1. Right distal radius fracture, From a fall, DOI: 07/23/24 Reduced at [facility] and managed in a cast until 4 weeks post injury by [facility] 2. Right hand stiffness With good improvement since last visit I educated her about this condition Her cast was removed on ~08/20/24 at [facility], and she has discontinued her care with them. She will discontinue her velcro wrist splint at this time She will work on ROM exercises at home She will continue to attend OT hand therapy to work on ROM, stretching, strengthening, and normalizing function. She has been attending OT at [place] She should use her hand for more normal daily activities, slowly increasing her activity levels & weight as tolerated over the next 4 weeks She will follow up prn Scribed for Rossana Banegas MD by Arthur Sullivan, medical records coordinator, on 09/26/24 at 2:10 PM, EST. Coding Level of Care Code Est Pt Level 3 (22092) Diagnoses Fracture of right distal radius S52.501A Stiffness of right hand joint M25.641
--- OUTSIDE RECORDS SUMMARY | 2024-09-26 16:08 | XMS_ITS | Clinical Summary ---
Author Organization [facility] Address [address] [place] [address] Phone Care Team Providers Care Assessment Nurse Practitioner Name Role Phone Jimbo Hopkins Primary Care Provider [phone] Allergies No known active allergies Medications oxyCODONE (OXY-IR) 5 mg immediate release capsule Take 1 capsule (5 mg total) by mouth every 6 (six) hours if needed for severe pain. Max Daily Amount: 20 mg 30 capsule 07/24/2024 Active Encounters Date Type Department Care Team Description 08/22/2024 11:45 AM EST Office Visit Orthopedic [facility] [address] [facility] [address] [place] [phone] Presley Pandey MD History of fracture (Primary Dx); Closed Colles' fracture of right radius with malunion, subsequent encounter 08/07/2024 4:00 PM EST Office Visit Orthopedic [facility] [address] [facility] [address] [place] [phone] Presley Pandey MD Right wrist pain (Primary Dx); Closed extra-articular fracture of distal end of right radius with malunion, subsequent encounter 07/31/2024 1:45 PM EST Office Visit Orthopedic [facility] [address] [facility] [address] [place] [phone] Presley Pandey MD Follow-up exam (Primary Dx); Closed extra-articular fracture of distal end of right radius with malunion, subsequent encounter 07/24/2024 11:30 AM EST Office Visit Orthopedic Surgery [facility] [address] [facility] [address] [place] [phone] Presley Pandey MD Right wrist pain (Primary Dx); Closed fracture of right distal radius and ulna, initial encounter 07/23/2024 1:56 AM EST - 07/23/2024 7:08 AM EST Emergency [facility] Emergency [address] [place] [phone] Glenroy Palacio MD Closed fracture of right wrist, initial encounter (Primary Dx) Discharge Disposition: Home or Self Care 07/23/2024 Telephone Orthopedic Surgery [facility] [address] [facility] [address] [place] [phone] [facility] from Last 3 Months Social History Tobacco [...] 08/22/2024 11:49 AM EST Plan of Treatment Health Maintenance Due Date Last Done Comments DTaP,Tdap,and Td Vaccines (1 - Tdap) 1964 Pneumococcal Vaccine: 50+ Years (2 of 2 - PPSV23) 06/27/2015 05/02/2015 Zoster Vaccines (2 of 3) 04/29/2016 03/04/2016 RSV Immunization Adult Patients (1 - 1-dose 75+ series) 2021 Cholesterol [...] age to complete this topic Meningococcal B Vaccine Aged Out No l onger eligible based on patient's age to complete this topic RSV Immunization Patients Under 20 months Aged Out No longer eligible b ased on patient's age to complete this topic Varicella Vaccines Aged Out No longer eligible based on patient's age to complete this topic Procedures Procedure Name Priority Date/Time Associated Diagnosis Comments XR WRIST 3+ VIEWS RIGHT Routine 08/22/2024 11:42 AM EST History of fracture XR WRIST 3+ VIEWS RIGHT Routine 08/07/2024 [...] FRACTURE W/MANIPULATION Routine 07/23/2024 6:26 AM EST [place] CLOSED TX DISTAL RADIUS FRACTURE/EPIPHYSEAL SEPARATION W/ MANIPULATION Routine 07/23/2024 6:[address] HEAD WO CONTRAST STAT 07/23/2024 3 :24 AM EST XR WRIST 3+ VIEWS RIGHT STAT 07/23/2024 1:57 AM EST from Last 3 Months Results * XR Wrist 3+ Views Right (08/22/2024 11:42 AM EST) Only the most recent of6 resultswithin the time period is included. Anatomical Region Laterality Modality Upper Extremities, Wrist Right Compute d Radiography Narrative 08/29/2024 5:43 PM EDT 3 view x-rays of the right wrist shows right distal ??radius fracture with dorsal angulation. Dorsal angulation is measured as 23 degrees largely unchanged from radiographs on 08/07/24, there is evidence of callus formation dorsally. No interval displacement of the ulnar styloid avulsion fracture Impression: Unchanged alignment of dorsally angulated distal radius fracture. ?? us Presley Pandey MD IMG XR PROCEDURES [...] to verify the correct patient, procedure, equipment, information support project manager and site/side marked as required Injury [...] IN CLINIC/BEDSIDE ORDERABLES Fin al Result * Casting (07/24/2024 1:16 PM EST) [...] IN CLINIC/BEDSIDE ORDERABLES Fin al Result * [place] CLOSED TX DISTAL RADIUS FRACTURE/EPIPHYSEAL SEPARATION W/ [...] yes ?Risks discussed: ??Pain and nerve damage [place] protocol: ??Procedure explained and questions answered to [...] Palacio MD IMG CT PROCEDURES Final Result from Last [address] [place] [id number] MEDICARE [facility] Care Teams Assessment Nurse Practitioner Relationship Specialty Start Date End Date Jimbo Hopkins DO [address] [place], [place] PCP - General Family Medicine 05/28/24
--- OUTSIDE RECORDS SUMMARY | 2024-09-26 16:08 | XMS_ITS | Clinical Summary ---
Author Organization [facility] Address [address] [facility] [address] [place] [address] Phone Care Team Providers Care Mint Wa[employer]ositor Name Role Phone HopkinsSundary Karie MADISON Primary Care Provider Allergies Active Allergy Reactions Criticality Noted Date Comments Other Nausea Only 05/25/2011 Tramadol. Medications cyanocobalamin (VITAMIN B-12) 1000 MCG tablet Take 1 tablet by mouth 1 (one) time each day Active LORazepam (ATIVAN) 1 MG tablet Take 1 tablet by mouth 2 (two) times a day Active pantoprazole (PROTONIX) 40 MG EC tablet Take 1 tablet by mouth 1 (one) time each day Active sucralfate (CARAFATE) 1 g tablet Take 1 tablet by mouth 1 (one) time each day Active temazepam (RESTORIL) 30 MG capsule Take 1 capsule by mouth at bed time Active tiZANidine (ZANAFLEX) 4 MG capsule Take 0.5 capsules by mouth 1 (one) time each day Active Magnesium 250 MG tablet Take 1 tablet by mouth 2 (two) times a day Active Active Problems Problem Noted Date Diagnosed Date Chronic kidney disease stage 2 09/12/2020 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 PFTs 05/02/2015 normal without bronchoreversibility. FEV1 3.01 (118% predicted) DLCO 17.35 (69 % predicted) On Flovent HFA, 110 mcg, 2 puffs twice daily Vitamin D deficiency 11/08/2012 Overview (09/12/2020): Vitamin D Deficiency Resolved Problems Problem Noted Date Diagnosed Date Resolved Date History of diverticulitis 05/11/2017 Overview (09/12/2020): Added automatically from request for surgery [id number] Gastroesophageal reflux disease 04/23/2014 09/12/2020 Overview (09/12/2020): Causes heartburn and likely contributes to chronic cough. Followed by Dr. Evans. Depressive disorder 11/08/2012 09/13/19 Overview (09/12/2020): Depression Fibromyalgia 11/08/2012 09/12/2020 Overview (09/12/2020): Text: Fibrositis: RHEUMATISM NOS - 729.0 Hyperlipidemia 11/08/2012 09/12/2020 Overview (09/12/2020): Hyperlipidemia Irritable bowel syndrome 11/08/2012 Overview (09/12/2020): Irritable Bowel Syndrome: IRRITABLE BOWEL SYNDROME - 564.1 Osteoporosis 11/08/2012 09/12/2020 Overview (09/12/2020): Osteoporosis: OSTEOPOROSIS NOS - 733.00 Sensorineural hearing loss, bilateral 11/08/2012 09/12/2020 Overview (09/12/2020): Sensorineural Hearing Loss In Both Ears Chronic cough 03/12/2011 09/12/2020 Overview (09/12/2020): (Recorded by [facility]) Etiology likely multi-factorial: cough-variant asthma (on Flovent HFA, 110, 2 puffs BID), post-nasal drip (on nasal fluticasone) and GERD (on Nexium). Immunizations Name Administration Dates Next Due Influenza Split 03/12/2011 Pneumococcal Conjugate 13-Valent 05/02/2015 Family History Medical History Relation Comments Heart disease Father Relation Status Comments Father Mother Social History Tobacco Use Types Packs/Day Years Used Date Smoking Tobacco: Never Alcohol Use Standard Drinks/Week Comments Yes 0 (1 standard drink = 0.6 oz pure alcohol) Alcoholic Drinks/day: 1-2 drinks per day Comments Unknown Sex and Gender Information Value Date Recorded Sex Assigned at Not on file Legal Sex Female 4:50 PM EST Gender Identity Not on file Sexual Orientation Not on file Last Filed Vital Signs Vital Sign Reading Time Taken Comments Blood Pressure 100/70 10/26/2018 12:00 PM EDT Pulse 74 10/26/2018 12:00 PM EDT Temperature - - Respiratory Rate - - Oxygen Saturation - - Inhaled Oxygen Concentration - - Weight 66.2 kg (146 lb) 10/26/2018 12:00 PM EDT Height 168.9 cm (5' 6.5 ) 09/14/2019 12:00 PM ED T Body Mass Index 23.21 10/26/2018 12:00 PM EDT Plan of Treatment Health Maintenance Due Date Last Done Comments Pneumococcal Vaccine: 65+ Ye ars (2 of 2 - PPSV23 or PCV20) 06/27/2015 05/02/2015 Influenza Vaccine (Season Ended) 2025 03/12/20 11 Hepatitis B Vaccine Aged Out No longe r eligible based on patient's age to complete this topic Insurance [facility] MEDICARE [facility] MEDICARE Care Teams Mint Wa[employer] Depositor Relationship Specialty Start Date End Date Jimbo Hopkins DO [address] [place] [address] PCP - General 06/30/20
--- OUTSIDE RECORDS SUMMARY | 2024-09-26 16:09 | XMS_ITS | Data Portability ---
Author Organization J[facility],, SARAH ADKINS MD Address [address] [facility] [address] [place] [address] Assessment No assessment recorded. Plan of Treatment Reminders Order Date Submit Date Provider Last Modified By Organization Details Last Modified Time Details Appointments None recorded. Lab Pap test, slide(s), cervical 2014 015 [facility], Cytopathology Service, [address] [place], [address], 5 12:58:09 urinalysi s, dipstick, auto 2014 015 [email or web address] 1 In-Office Order, Internal Use Only DO Not Attach Compendium DO Not Attach Compendium, Do Not Delete/merge, [id number] 5 16:22:27 culture, urine 2014 015 [facility], [address] [place], [address], 5 05:02:09 urinalysi s, dipstick, auto 2014 015 [email or web address] 1 In-Office Order, Internal Use Only DO Not Attach Compendium DO Not Attach Compendium, Do Not Delete/merge, [id number] 5 13:45:51 culture, urine 2014 015 [facility], [address] [place], [address], 5 09:12:13 urinalysi s, dipstick 2014 015 [email or web address] 1 In-Office Order, Internal Use Only DO Not Attach Compendium DO Not Attach Compendium, Do Not Delete/merge, [id number] 5 10:57:12 culture, urine 2014 [employer] [facility], [address] [place], [address], 5 09:22:17 ca 125, serum 2014 [employer] [facility], [address] [place], [address], 5 09:23:44 Referral None recorded. Procedures None recorded. Surgeries None recorded. Imaging MAMMO, screening , digital, bilateral 2014 [facility] (Central Scheduling Radiology), [address] [place] [address], [address], 5 10:56:21 ultrasoun d, pelvic transabdo salud & transvagi nal - 2 cm right ovarian cyst noted on the CT scan at [facility] [address] [facility] (Central Scheduling Radiology), [address] [place] [address], [address], 5 20:17:30 Medication Orders Estrace 0.01% (0.1 mg/gram) vaginal cream 2014 015 smacmillan 1 [facility]/Pharmacy #[id number], [address] [place], [address], 5 16:22:28 Bactrim DS 800 mg-160 mg tablet 2014 015 [facility] - [address], [id number], 5 14:17:48 Patient TargetsNo targets recorded. Patient Instructions Encounter Date Encounter Id Patient Instructions Last Modified By Organization Details Last Modified Time 11/01/2014 [id number] She is here to follow up on her recent pelvic CT at the [facility] where a 2 cm cystic lesion of [...] 25 minutes Not available 11/01/2014 10:57:12 11/12/2014 [id number] She is here for DIANE after recent [...] on her recent pelvic CT at the [facility] where a 2 cm cystic lesion of [...] 15 minutes Not available 11/12/2014 13:45:51 11/25/2014 [id number] painful urinatio n (dysuria): care instructions Not [...] 25 minutes Not available 11/25/2014 16:22:28 01/28/2015 [id number] She appears to b e doing well. [...] in detail. Not available 01/28/2015 14:46:11 03/30/2016 [id number] She is here for discussion of her [...] colonoscopy annually. Her GI doctor is at [facility]. She did tell her GI doctor that [...] DO Not Attach Compendium, Do Not Delete/merge, [address]4714 11/01/2014 10:24:47 11/02/19 15 11/01/2014 ca 125, serum comments [facility] [address] [facility] [place] [address] [phone] Not Available [facility] [address] [place], [address], 11/02/2014 10:36:37 11/02/19 15 11/01/2014 ca 125, serum Ca125 11 U/mL <35 CA-12 5 resul t obtai kenneth by [employer] lumin escen t metho d. Not Available [facility] [address] [place], [address], 11/02/2014 10:36:37 11/02/19 15 11/01/2014 antib iotic sensi tivit y, isola te comments PAREN T ORGAN ISM: CITRO BACTE R FREUN DII ( CITFR E ) [facility] [address] [facility] [place] [address] [phone] SOURC E: URINE ,AYSE N CATCH ; Not Available [facility] [address] [place], [address], 11/04/2014 04:28:11 11/02/19 15 11/03/2014 antib iotic sensi tivit y, isola te gram negative susceptibili ty [facility] [address] [place] [address] TRIME THOPR IM/DONATO LFAME THOXA ZOLE <=20 [...] Not Available [facility] [address], [place], [address], 11/04/2014 04:28:11 11/02/19 15 11/01/2014 cultu re, urine comments [facility]ori [address] [facility] [place], [place] [address] [phone] SOURC E: URINE ,AYSE N CATCH ; Not Available [facility] [address] [place] [address], [address], 11/04/2014 05:31:21 11/02/19 15 11/03/2014 cultu re, urine urine culture Life [address] [address] URINE CULTU RE CITRO BACTE R FREUN DII ( CITFR E ) F URINE CULTU RE COLON Y COUNT F URINE CULTU RE 50,00 0-100 ,000 F Not Available [facility] [address] [place] [address], [address], 11/04/2014 05:31:21 11/13/19 15 11/12/2014 cultu re, urine comments [facility] at[facility] [address] [place] [address] [phone] SOURC E: URINE ,AYSE N CATCH ; Not Available [facility] [address] [place] [address], [address], 11/14/2014 09:12:13 11/13/19 15 11/13/2014 cultu re, urine urine culture [address] [address] URINE CULTU RE <10,0 00 CFU/m L F URINE CULTU RE GRAM POSIT SHELDON COCCI F Not Available [facility] [address] [place] [address], [address], 11/14/2014 09:12:13 11/26/19 15 11/25/2014 cultu re, urine comments [facility] [address] [place] [address] [phone] SOURC E: URINE ,AYSE N CATCH ; Not Available [facility] [address] [place] [address], [address], 11/27/2014 05:02:09 11/26/19 15 11/26/2014 cultu re, urine urine culture [facility] [address] [place] [address] URINE CULTU RE <10,0 00 CFU/m L F URINE CULTU RE GRAM POSIT SHELDON COCCI F Not Available [facility] [address] [place], [address], 11/27/2014 05:02:09 01/29/20 15 01/28/2015 pap, LB [id number] ThinP rep Pap, Image d: NEGAT SHELDON FOR SQUAM OUS INTRA EPITH ELIAL LESIO N AND MALIG JAYANT . Rosina acharya is prese nt. Serena Catalan [facility], CT( CP) (Case elect gabbi pinto jimi [...] at the above addre ss. Not Available [facility], Cytopathology Service [address] [place], [address], 01/31/2015 12:16:36 10/31/19 15 10/28/2014 imagi ng/di agnos tic resul t No observ ation record ed. [email or web address] Not Available 2014 12:03:05 11/22/19 15 11/21/2014 ultra sound , pelvi c trans abdom inal & trans vagin al No observ ation record ed. [email or web address] [facility] [address] [place], [address], 11/25/2014 15:00:53 01/23/20 15 01/21/2015 ultra sound , pelvi c trans abdom inal & trans vagin al No observ ation record ed. [facility] [address] [place], [address], 01/28/2015 15:39:10 03/04/20 15 03/04/2015 ultra sound , pelvi c trans abdom inal & trans vagin al No observ ation record ed. [facility] [address] [place] [address], [address], 03/06/2015 10:52:41 03/10/20 15 03/04/2015 MAMMO , scree silvia, digit al, bilat eral No observ ation record ed. [facility] [address] [place], [address], 03/10/2015 15:01:05 03/12/20 15 03/12/2015 MAMMO , scree silvia, digit al, bilat eral No observ ation record ed. [address] [facility] [address] [place] [address], [address], 03/13/2015 08:39:43 03/13/20 15 03/12/2015 ultra sound , breas t No observ ation record ed. [address] [facility] [address] [place] [address], [address], 03/14/2015 08:14:31 09/10/19 16 09/10/2015 MAMMO , diagn ostic , digit al, unila teral No observ ation record ed. [facility] [address] [place] [address], [address], 09/15/2015 09:33:28 09/10/19 16 09/10/2015 ultra sound , pelvi c trans abdom inal & trans vagin al No observ ation record ed. [facility] [address] [place] [address], [address], 09/15/2015 09:33:28 03/25/20 16 03/25/2016 MAMMO , scree silvia, digit al, bilat eral No observ ation record ed. [facility] [address] [place], [address], 03/26/2016 10:26:15 03/25/20 16 03/25/2016 ultra sound , pelvi c trans abdom inal & trans vagin al No observ ation record ed. [facility] [address] [place], [address], 03/26/2016 14:00:23 04/19/20 17 04/18/2017 MAMMO , scree silvia, digit al, bilat eral No observ [facility]ion [facility] ed. [email or web address] [address] [place], [address], 04/20/2017 07:37:54 Result Notes None recorded. Problems Name Problem SNOMED Code Status Onset Date Resolution Date Notes Provider Name and Address Organization Details Recorded Time Atrophic vaginitis [id number] Active Sarah Adkins MD [address], [place], [address], [place] - [facility], 5 16:22:27 Primary fibromyalgi a syndrome 53971930 Active Sarah Adkins MD [address], [place], [address], [place] - [facility], 4 13:11:34 Urinary incontinenc e 137204186 Active Sarah Adkins MD [address], [place], [address], [place] - [facility], 4 13:11:34 Dysuria 17529514 Active Sarah Adkins MD [address], [place], [address], [place] - [facility], 5 16:22:27 Acute lower urinary tract infection 901568777 Active Sarah Adkins MD [address], [place], [address], [place] - [facility], 5 10:57:12 Cyst of ovary 89340600 Active Sarah Adkins MD [address], [place], [address], [place] - [facility], 6 13:04:57 Candidal vulvovagini tis 80047231 Active Sarah Adkins MD [address], [place], [address], [place] - [facility], 5 16:37:56 Mammography abnormal 143304283 Active Sarah Adkins MD [address], [place], [address], [place] - [facility], 6 13:04:57 Family history of genetic disorder carrier [id number] Active brother tested positive for Colaris test Sarah Adkins MD [address], [place], [address], [place] - [facility], 4 13:28:57 Menopausal syndrome 443800177 Active Sarah Adkins MD [address], [place], [address], [place] - [facility], 4 13:28:57 Problem Notes None recorded. Procedures Surgical History Date Name Laterality Status Provider Name and Address Organization Details Recorded Time 01/29/20 15 Medicare Annual completed Beth Chance in [facility], 01/28/2015 14:22:27 06/20/18 91 Hysterectomy completed Seema Chance in [facility], 01/01/2013 11:40:33 06/20/18 86 Dilation and Curettage completed Seema Chance in [facility], 01/01/2013 11:40:33 06/20/18 80 Appendectomy completed Seema Pizano [place] - [facility], 01/01/2013 11:40:33 Imaging Results Imaging Date Name Status LastModified by Organization Details LastModified Time 10/28/2014 [facility]diagn[facility] Information not available 10/31/2014 12:03:05 11/21/2014 ultrasound, pelvic transabdominal & transvaginal completed [facility] [address] [place] [address], [address], 11/25/2014 15:00:53 01/21/2015 ultrasound, pelvic transabdominal & transvaginal completed [facility] [address] [place] [address], [address], 01/28/2015 15:39:10 03/04/2015 ultrasound, pelvic transabdominal & transvaginal completed [facility] [address] [place] [address], [address], 03/06/2015 10:52:41 03/04/2015 MAMMO, screening, digital, bilateral completed [facility] [address] [place] [address], [address], 03/10/2015 15:01:05 03/12/2015 MAMMO, screening, digital, bilateral completed [address] [facility] [address] [place] [address], [address], 03/13/2015 08:39:43 03/12/2015 ultrasound, breast completed [address] [facility] [address] [place] [address], [address], 03/14/2015 08:14:31 09/10/2015 MAMMO, diagnostic, digital, unilateral completed [facility] [address] [place] [address], [address], 09/15/2015 09:33:28 09/10/2015 ultrasound, pelvic transabdominal & transvaginal completed [facility] [address] [place] [address], [address], 09/15/2015 09:33:28 03/25/2016 MAMMO, screening, digital, bilateral completed [facility] [address] [place] [address], [address], 03/26/2016 10:26:15 03/25/2016 ultrasound, pelvic transabdominal & transvaginal completed [facility] [address] [place] [address], [address], 03/26/2016 14:00:23 04/18/2017 MAMMO, screening, digital, bilateral completed [facility] [address] [place] [address], [address], 04/20/2017 07:37:54 Procedure Notes None recorded. Medical [...] 5 167.64 cm 23.8 kg/m2 85 /min 35333.2 95540 g 119 mm[Hg] 50 mm[Hg] Seema Pizano [place] - [facility], 5 10:24:27 Date Recorded Body weight Body height Body mass index (BMI) Heart rate Systolic blood pressure Diastolic blood pressure Provider Name and Address Organization Details Last Updated DateTime 5 19734.0 06680 g 167.64 cm 24.8 kg/m2 67 /min 104 mm[Hg] 61 mm[Hg] Seema Chance in [facility], 5 13:16:25 Date Recorded Body height Body weight Heart rate Body mass index (BMI) Systolic blood pressure Diastolic blood pressure Provider Name and Address Organization Details Last Updated DateTime 5 167.64 cm 83745.6 62024 g 73 /min 23.7 kg/m2 103 mm[Hg] 50 mm[Hg] Beth Chance in [facility], 5 14:49:18 Date Recorded Heart rate Body weight Body mass index (BMI) Body height Systolic blood pressure Diastolic blood pressure Provider Name and Address Organization Details Last Updated DateTime 5 86 /min 91540.0 4024 g 24.5 kg/m2 167.64 cm 116 mm[Hg] 69 mm[Hg] Beth Chance in [facility], 5 14:16:01 Date Recorded Body height Body weight Body mass index (BMI) Heart rate Systolic blood pressure Diastolic blood pressure Provider Name and Address Organization Details Last Updated DateTime 6 167.64 cm 72111.1 4 g 24.2 kg/m2 75 /min 136 mm[Hg] 79 mm[Hg] Seema Chance in [facility], 6 13:04:56 Social History Question Answer Notes LastModified by Organizat ion Details LastModified Time Tobacco Smoking Status Never Smoker Not Available [facility] 04/22/2020 03:19:39 What Is Your Level Of Alcohol Consumption? Moderate [id number] Information not available 04/22/2020 What Is Your Level Of Caffeine Consumption? Occasional [id number] Information not available 04/22/2020 What Type Of Diet Are You Following? REGULAR [id number] Information not available 04/22/2020 Which Illicit Or Recreational Drugs Have You Used? No [id number] Information not available 04/22/2020 Do You Reside In Or Have You Traveled To An Area Where Ebola Virus Transmission Is Active? 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 0 Information no t available 03/30/2016 High Number Of Sexual Partners No Information not available 03/30/2016 To Which Gender Do You Self-identify? Female Information not available 03/30/2016 Marital Status [email or web address] Informatio n not available 01/01/2013 Are You Sexually Active? Yes [id number] Information not available 04/22/2020 How Much Tobacco Do You Smoke? No [id number] Information not available 04/22/2020 General Stress Level High Information not available 01/01/2013 How Many Years Have You Smoked Tobacco? 0 [id number] Information not available 04/22/2020 Have You Recently (within The Last 12 Weeks, Or During A Current ) Traveled To Or Lived In A Zika-affected Area? No Information not available 03/30/2016 Sex: Unknown Functional Status Question Answer Note LastModified by Organizat ion Details LastModified Time What is your exercise level? Occasional [id number] Information not available 04/22/2020 Mental Status None [...] unspecified formulation 3 completed JAY Stanley in [facility], 01/01/2013 11:40:33 Pneumococcal Conjugate, unspecified formulation 6 completed J[place] Stanley in [facility], 03/30/2016 13:06:36 zoster live 6 completed JAY Stanley in [facility], 03/30/2016 13:06:56 Past Encounters Encounter ID Performer Location Encounter Start Date Encounter Closed Date Diagnosis/Indication Diagnosis SNOMED-CT Code Diagnosis ICD10 Code Diagnosis Note [id number] Seema ADKINS MD [address] [place] [address] 01/01/2013 11:12:02 01/02/2013 08:07:12 [id number] Seema ADKINS MD [address] [place] [address] 01/09/2013 13:00:21 01/10/2013 09:29:51 [id number] Seema ADKINS MD [address] [place] [address] 01/08/2014 12:46:45 01/08/2014 13:44:32 Screening for malignant neoplasm of cervix 507582108 Screening mammography 71000445 Menopausal syndrome 538292324 Atrophic vaginitis 55923365 Family his tory of genetic disorder carrier [id number] Seema Harinder ADKINS MD [address] [facility],[place] [address] 06/14/2014 08:31:45 06/14/2014 09:54:49 Dysuria 43181404 [id number] Beth Minor SARAH ADKINS MD [address] [facility],[place] [address] 11/01/2014 10:09:00 11/01/2014 13:12:24 Acute lower urinary tract infection 605987830 Cyst of ovary 73015285 [id number] SARAH ADKINS MD [address] [place] [address],[place] [address] 11/12/2014 13:11:35 11/12/2014 16:03:17 Dysuria 75022338 [id number] SARAH ADKINS MD [address] [facility],[place] [address] 11/25/2014 14:38:36 11/26/2014 08:02:59 Dysuria 85976439 Atrophic vaginitis 95183399 [id number] SARAH ADKINS MD [address] [facility],[place] [address] 01/28/2015 14:08:30 01/29/2015 08:26:54 Screening mammography 81533810 Screening for malignant neoplasm of cervix [id number] MD SARAH Ash MD [address] [facility],[place] [address] 03/30/2016 12:56:35 03/30/2016 14:16:18 Cyst of ovary 72099225 N83.201 Family his tory of genetic disorder carrier [id number] Z84.81 Health Concerns Section Related Observation LastModified by Organization Detai ls LastModified Time None Recorded Concern Status LastModified by Organization Details LastModified Time None Recorded Advance Directives Directive None Recorded Payers Encounter Date Sequence Insurance Name Policy Number Policy Berrios Covered Member ID Berrios Member ID Guarantor Name 11/01/2014 1 [facility] - MEDICARE PREFERRED (MEDICARE REPLACEMENT HMO) GEOVANNY Ramirez [id number] 1 [id number] Benjamin Zimmerman 11/12/2014 1 [facility] - MEDICARE PREFERRED (MEDICARE REPLACEMENT HMO) GEOVANNY franklin James [id number] ValeLuis Alberto Erasmo 11/25/2014 1 [facility] MEDICARE PREFERRED (MEDICARE REPLACEMENT HMO) GEOVANNY franklin James [id number] Benjamin Erasmo 01/28/2015 1 [facility] - MEDICARE PREFERRED (MEDICARE REPLACEMENT HMO) GEOVANNY franklin James [id number] ValeDillon Erasmo 03/30/2016 1 [facility] - MEDICARE PREFERRED (MEDICARE REPLACEMENT HMO) GEOVANNY Sorianokle [id number] Benjamin Zimmerman Notes Date Note Type Note [...] peritoneal inclusion cysts Sarah Adkins MD [address] [facility],[address], [place], [address], [place] [facility], 03/30/2016 14:17:41 OBGyn Episode No OBEpisode recorded.
== END 2024-09-26 14:30 | disposition home or self-care (01) ==
LOC: HO.HOS 13:53
PROVIDERS: Visit Provider Orthopaedic Surgery
DX: S52.501A Unspecified fracture of the lower end of right radius, initial encounter for closed fracture (principal); M25.641 Stiffness of right hand, not elsewhere classified
CPT/HCPCS: 99213

== ENCOUNTER → 2024-09-26 13:53 | Outpatient (BNVA) | payer MEDICARE, OTHER, SELFPAY | PROVIDERS: Visit Provider Orthopaedic Surgery | DX: S52.501D Unspecified fracture of the lower end of right radius, subsequent encounter for closed fracture with routine healing (principal); M25.641 Stiffness of right hand, not elsewhere classified; W00.9XXD Unspecified fall due to ice and snow, subsequent encounter | CPT/HCPCS: 99212 ==

== ENCOUNTER 2024-10-15 12:57 | Outpatient (AMB) | payer MEDICARE, OTHER, SELFPAY ==
[2024-10-15 13:04] VITALS: BP 122/75; PULSE 85; RESP 16; O2SAT 100; BMI 26.6
--- NOTE | 2024-10-15 13:04 | A.OFFVIS_ITS ---
Vital Signs 10/15/24 13:04 Height 5 ft 3 in Weight 150 lb BMI 26.6 BP 122/75 Blood Pressure Location Lt brachial Position Sitting Respiration 16 Pulse 85 Pulse Source Pulse Oximeter Pulse Oximetry (%) 100 Oxygen Delivery Method Room Air Intake Visit Reasons: FU for Rx refill/ not seensince 12/2021 Language Asst Required: No Allergies No Known Allergies Allergy (Verified 10/15/24 13:05) Medication List - Last Reconciled 10/15/24 by Lucila Galo LPN lorazepam 1 mg PO BID omeprazole 20 mg PO DAILY temazepam 30 mg PO BEDTIME tizanidine 2 mg PO QID PRN HPI HPI FU for Rx refill/ not seensince 12/2021: Details: History of Present Illness The patient is a 79-year-old female presenting with a follow-up visit for management of a distal radius fracture and medication refills. She fractured her wrist on July 21 after slipping on ice, initially managed with casting for four weeks, progressing to a brace, and continued physical therapy due to the complexity of the fracture. Surgical correction was recommended but not performed. She also reports fibromyalgia and migraine headaches, with Tizanidine providing symptomatic relief for these conditions. She takes 2 mg of Tizanidine four times daily and has achieved effective management of fibromyalgia symptoms and reduction in migraine episodes, without experiencing any side effects. She notes ongoing challenges in functional activities due to her 's Parkinson's disease, requiring her assistance. Pain Description - Onset & Timing: July 21 after a fall on ice. - Quality & Character: Persistent soreness and swelling in the wrist, with limitations in range of motion. - Primary Location: Distal radius (wrist) region. - Areas of Radiation: None noted. - Exacerbating Factors: Physical activity, particularly work-related tasks. - Relieving Factors: Physical therapy, rest, and soaking in Epsom salts. - Interference: Affects working at the [employer] and caring for her with Parkinson's. Physical Exam - Appears afebrile. - Alert and oriented. - Mood and affect appropriate. - Follows and participates in conversation appropriately. - Respiratory effort is unlabored. - Able to transition from sit to stand unassisted. - Ambulates with bilaterally normal heel strike and toe off. - Able to stand and walk on toes and heels. Pain Management - Affect: Reports the impact on job performance and caregiving responsibilities due to persistent wrist pain. - Analgesia: Tizanidine 2 mg four times a day provides relief for fibromyalgia and reduces migraines. - Adverse Effects: Denies any adverse effects from Tizanidine. - Activities of Daily Living: Pain and wrist dysfunction affect work activities and care for her . - Aberrant Drug-Related Behaviors: None reported. [facility] Medical History (Updated 08/29/24 @ 11:19 by Arthur Sullivan) Lumbar spondylosis Social History Current occupational status: retired Physical Exam Vital Signs: Last Vital Signs Pulse 85 10/15/24 13:04 Resp 16 10/15/24 13:04 BP 122/75 10/15/24 13:04 Pulse Ox 100 10/15/24 13:04 Oxygen Delivery Method Room Air 10/15/24 13:04 BMI result Body Mass Index 26.6 Assessment & Plan Assessment & Plan (1) Lumbar spondylosis: Code(s): M47.816 - Spondylosis without myelopathy or radiculopathy, lumbar region Category: Medical (2) Myalgia: Code(s): M79.10 - Myalgia, unspecified site Category: Medical Plan Plan - Tizanidine 2 mg prescribed, four times daily with a one-year refill. - Continue physical therapy for wrist. - Epsom salt soaks recommended for relief. - Night wrist splints use advised for alignment. Patient was informed and verbally consented to the use of an ambient scribe for clinic note documentation during this visit. Discussion Notes During the consultation, I discussed the fracture management strategy, emphasizing the success of conservative treatment with cast and brace use in her case, due to the fracture complexity and initial recommendation for surgery that was ultimately not pursued. I highlighted the effectiveness of Tizanidine in managing fibromyalgia and migraine, reinforcing the importance of regular use as prescribed. Additionally, I explained the benefits of nightly splint use to maintain proper wrist position and advised ongoing therapy regimens, including home strategies like Epsom salt soaks, to alleviate symptoms. Long-term monitoring of her wrist function and follow-up in a year for medication reassessment was agreed upon. Patient Instructions - Take Tizanidine 2 mg four times daily as prescribed. - Continue with wrist exercises and physical therapy. - Use wrist splints at night for proper alignment. - Soak wrist in Epsom salts for 10 minutes as needed. - Follow up in one year for medication reassessment unless new symptoms occur. Medications: Refilled tizanidine Okay to dispense generic alternative 2 mg PO QID PRN 360 tabs 3RF muscle spasticity Coding Level of Care Code Est Pt Level 3 (23699) Diagnoses Lumbar spondylosis M47.816 Myalgia M79.10
--- OUTSIDE RECORDS SUMMARY | 2024-10-15 15:33 | XMS_ITS | Data Portability ---
Author Organization JAY - [facility],, SARAH ADKINS MD Address [address] [facility] [address] [place] [address] Assessment No assessment recorded. Plan of Treatment Reminders Order Date Submit Date Provider Last Modified By Organization Details Last Modified Time Details Appointments None recorded. Lab Pap test, slide(s), cervical 2014 015 [facility], Cytopathology Service, [address] [place], [address], 5 12:58:09 urinalysi s, dipstick, auto 2014 015 [email or web address] 1 In-Office Order, Internal Use Only DO Not Attach Compendium DO Not Attach Compendium, Do Not Delete/merge, [id number] 5 16:22:27 culture, urine 2014 015 [place], [address] [place], [address], 5 05:02:09 urinalysi s, dipstick, auto 2014 015 [email or web address] 1 In-Office Order, Internal Use Only DO Not Attach Compendium DO Not Attach Compendium, Do Not Delete/merge, [id number] 5 13:45:51 culture, urine 2014 015 [place], [address] [place], [address], 5 09:12:13 urinalysi s, dipstick 2014 015 [email or web address] 1 In-Office Order, Internal Use Only DO Not Attach Compendium DO Not Attach Compendium, Do Not Delete/merge, [id number] 5 10:57:12 culture, urine 2014 [facility] [facility] [facility], [address] [place], [address], 5 09:22:17 ca 125, serum 2014 [facility] [facility], [address] [place], [address], 5 09:23:44 Referral None recorded. Procedures None recorded. Surgeries None recorded. Imaging MAMMO, screening , digital, bilateral 2014 [facility] (Central Scheduling Radiology), [address] [place] [address], [address], 5 10:56:21 ultrasoun d, pelvic transabdo salud & transvagi nal - 2 cm right ovarian cyst noted on the CT scan at [facility] 2014 015 [facility] (Central Scheduling Radiology), [address] [place] [address], [address], 5 20:17:30 Medication Orders Estrace 0.01% (0.1 mg/gram) vaginal cream 2014 015 [email or web address] 1 [facility]/Pharmacy #[id number], [address] [place], [address], 5 16:22:28 Bactrim DS 800 mg-160 mg tablet 2014 015 [facility] - [address], [id number], 5 14:17:48 Patient TargetsNo targets recorded. Patient Instructions Encounter Date Encounter Id Patient Instructions Last Modified By Organization Details Last Modified Time 11/01/2014 [id number] She is here to follow up on her recent pelvic CT at the [facility] where a 2 cm cystic lesion of [...] 25 minutes Not available 11/01/2014 10:57:12 11/12/2014 [id number] She is here for DIANE after recent [...] on her recent pelvic CT at the [facility] where a 2 cm cystic lesion of [...] 15 minutes Not available 11/12/2014 13:45:51 11/25/2014 [id number] painful urinatio n (dysuria): care instructions Not [...] 25 minutes Not available 11/25/2014 16:22:28 01/28/2015 [id number] She appears to b e doing well. [...] in detail. Not available 01/28/2015 14:46:11 03/30/2016 [id number] She is here for discussion of her [...] colonoscopy annually. Her GI doctor is at [facility]. She did tell her GI doctor [...] DO Not Attach Compendium, Do Not Delete/merge, [id number] 11/01/2014 10:24:47 11/02/19 15 11/01/2014 ca 125, serum comments [facility] [address] [facility] [place] [address] [phone] Not Available [facility] [address] [place], [address], 11/02/2014 10:36:37 11/02/19 15 11/01/2014 ca 125, serum Ca125 11 U/mL <35 CA-12 5 resul t obtai kenneth by [facility] lumin escen t metho d. Not Available [facility] [address] [place], [address], 11/02/2014 10:36:37 11/02/19 15 11/01/2014 antib iotic sensi tivit y, isola te comments PAREN T ORGAN ISM: CITRO BACTE R FREUN DII ( CITFR E ) [facility] [address] [facility] [place] [address] [phone] SOURC E: URINE ,AYSE N CATCH ; Not Available [facility] [address] [place], [address], 11/04/2014 04:28:11 11/02/19 15 11/03/2014 antib iotic sensi tivit y, isola te gram negative susceptibili ty [facility] [address] [place] [address] [phone] TRIME THOPR IM/DONATO LFAME THOXA ZOLE <=20 [...] Not Available [facility] [address], [place], [address], 11/04/2014 04:28:11 11/02/19 15 11/01/2014 cultu re, urine comments [facility] [address] [facility] [place], [place] [address] [phone] SOURC E: URINE ,AYSE N CATCH ; Not Available [facility] [address] [place] [address], [address], 11/04/2014 05:31:21 11/02/19 15 11/03/2014 cultu re, urine urine culture Life [address] [address] URINE CULTU RE CITRO BACTE R FREUN DII ( CITFR E ) F URINE CULTU RE COLON Y COUNT F URINE CULTU RE 50,00 0-100 ,000 F Not Available [facility] [address] [place] [address], [address], 11/04/2014 05:31:21 11/13/19 15 11/12/2014 cultu re, urine comments [facility] [address] [place] [address] [phone] SOURC E: URINE ,AYSE N CATCH ; Not Available [facility] [address] [place] [address], [address], 11/14/2014 09:12:13 11/13/19 15 11/13/2014 cultu re, urine urine culture [address] [address] URINE CULTU RE <10,0 00 CFU/m L F URINE CULTU RE GRAM POSIT SHELDON COCCI F Not Available [facility] [address] [place] [address], [address], 11/14/2014 09:12:13 11/26/19 15 11/25/2014 cultu re, urine comments [facility] [address] [place] [address] [phone] SOURC E: URINE ,AYSE N CATCH ; Not Available [facility] [address] [place] [address], [address], 11/27/2014 05:02:09 11/26/19 15 11/26/2014 cultu re, urine urine culture [facility] [address] [place] [address] URINE CULTU RE <10,0 00 CFU/m L F URINE CULTU RE GRAM POSIT SHELDON COCCI F Not Available [facility] [address] [place], [address], 11/27/2014 05:02:09 01/29/20 15 01/28/2015 pap, LB [id number] ThinP rep Pap, Image d: NEGAT SHELDON FOR SQUAM OUS INTRA EPITH ELIAL LESIO N AND MALIG JAYANT . Rosina acharya is prese nt. Serena Catalan [facility], CT( CP) (Case elect gabbi [...] at the above addre ss. Not Available [facility], Cytopathology Service [address] [place], [address], 01/31/2015 12:16:36 10/31/19 15 10/28/2014 imagi ng/di agnos tic resul t No observ ation record ed. [email or web address] Not Available 2014 12:03:05 11/22/19 15 11/21/2014 ultra sound , pelvi c trans abdom inal & trans vagin al No observ ation record ed. [email or web address] [facility] [address] [place], [address], 11/25/2014 15:00:53 01/23/20 15 01/21/2015 ultra sound , pelvi c trans abdom inal & trans vagin al No observ ation record ed. [facility]osit Imaging Dept [address] [place], [address], 01/28/2015 15:39:10 03/04/20 15 03/04/2015 ultra sound , pelvi c trans abdom inal & trans vagin al No observ ation record ed. [facility] Dept [address] [place] [address], [address], 03/06/2015 10:52:41 03/10/20 15 03/04/2015 MAMMO , scree silvia, digit al, bilat eral No observ ation record ed. [facility] Diagnosit Imaging Dept [address] [place], [address], 03/10/2015 15:01:05 03/12/20 15 03/12/2015 MAMMO , scree silvia, digit al, bilat eral No observ ation record ed. [address] Diagnosit Imaging Dept [address] [place] [address], [address], 03/13/2015 08:39:43 03/13/20 15 03/12/2015 ultra sound , breas t No observ ation record ed. [address] [facility] Dept [address] [place] [address], [address], 03/14/2015 08:14:31 09/10/19 16 09/10/2015 MAMMO , diagn ostic , digit al, unila teral No observ ation record ed. [facility] Dept [address] [place] [address], [address], 09/15/2015 09:33:28 09/10/19 16 09/10/2015 ultra sound , pelvi c trans abdom inal & trans vagin al No observ ation record ed. [facility] Dept [address] [place] [address], [address], 09/15/2015 09:33:28 03/25/20 16 03/25/2016 MAMMO , scree silvia, digit al, bilat eral No observ ation record ed. [facility] Dept [address] [place], [address], 03/26/2016 10:26:15 03/25/20 16 03/25/2016 ultra sound , pelvi c trans abdom inal & trans vagin al No observ ation record ed. [facility] [address] [place], [address], 03/26/2016 14:00:23 04/19/20 17 04/18/2017 MAMMO , scree silvia, digit al, bilat eral No observ [facility]ion [facility] ed[email or web address] [address] [place], [address], 04/20/2017 07:37:54 Result Notes None recorded. Problems Name Problem SNOMED Code Status Onset Date Resolution Date Notes Provider Name and Address Organization Details Recorded Time Atrophic vaginitis 23391933 Active Sarah Adkins MD [address], [place], [address], [place] - [facility], 5 16:22:27 Primary fibromyalgi a syndrome 70682776 Active Sarah Adkins MD [address], [place], [address], [place] - [facility], 4 13:11:34 Urinary incontinenc e 070058386 Active aSrah Adkins MD [address], [place], [address], [place] - [facility], 4 13:11:34 Dysuria 19154452 Active Sarah Adkins MD [address], [place], [address], [place] - [facility], 5 16:22:27 Acute lower urinary tract infection 460334868 Active Sarah Adkins MD [address], [place], [address], [place] - [facility], 5 10:57:12 Cyst of ovary 10596840 Active Sarah Adkins MD [address], [place], [address], [place] - [facility], 6 13:04:57 Candidal vulvovagini tis 76743446 Active Sarah Adkins MD [address], [place], [address], [place] - [facility], 5 16:37:56 Mammography abnormal 603916659 Active Sarah Adkins MD [address], [place], [address], [place] - [facility], 6 13:04:57 Family history of genetic disorder carrier 395179337 Active brother tested positive for Colaris test Sarah Adkins MD [address], [place], [address], [place] - [facility], 4 13:28:57 Menopausal syndrome 866989618 Active Sarah Adkins MD [address], [place], [address], [place] - [facility], 4 13:28:57 Problem Notes None recorded. Procedures Surgical History Date Name Laterality Status Provider Name and Address Organization Details Recorded Time 01/29/20 15 Medicare Annual completed Beth Chance in [facility], 01/28/2015 14:22:27 06/20/18 91 Hysterectomy completed Seema Chance in [facility], 01/01/2013 11:40:33 06/20/18 86 Dilation and Curettage completed Seema Chance in [facility], 01/01/2013 11:40:33 06/20/18 80 Appendectomy completed Seema Pizano [place] - [facility], 01/01/2013 11:40:33 Imaging Results Imaging Date Name Status LastModified by Organization Details LastModified Time 10/28/2014 imaging/diagnostic result [facility] Information not available 10/31/2014 12:03:05 11/21/2014 ultrasound, pelvic transabdominal & transvaginal completed [facility] [address] [place] [address], [address], 11/25/2014 15:00:53 01/21/2015 ultrasound, pelvic transabdominal & transvaginal completed [facility] Dept [address] [place] [address], [address], 01/28/2015 15:39:10 03/04/2015 ultrasound, pelvic transabdominal & transvaginal completed [facility] [address] [place] [address], [address], 03/06/2015 10:52:41 03/04/2015 MAMMO, screening, digital, bilateral completed [facility] [address] [place] [address], [address], 03/10/2015 15:01:05 03/12/2015 MAMMO, screening, digital, bilateral completed [address] Diagnosit Imaging Dept [address] [place] [address], [address], 03/13/2015 08:39:43 03/12/2015 ultrasound, breast completed [address] [facility]osit [facility] [address] [place] [address], [address], 03/14/2015 08:14:31 09/10/2015 MAMMO, diagnostic, digital, unilateral completed [facility] [address] [place] [address], [address], 09/15/2015 09:33:28 09/10/2015 ultrasound, pelvic transabdominal & transvaginal completed [facility] [address] [place] [address], [address], 09/15/2015 09:33:28 03/25/2016 MAMMO, screening, digital, bilateral completed [facility] [address] [place] [address], [address], 03/26/2016 10:26:15 03/25/2016 ultrasound, pelvic transabdominal & transvaginal completed [facility] [address] [place] [address], [address], 03/26/2016 14:00:23 04/18/2017 MAMMO, screening, digital, bilateral completed [facility] Dept [address] [place] [address], [address], 04/20/2017 07:37:54 Procedure Notes None recorded. Medical [...] 5 167.64 cm 23.8 kg/m2 85 /min 35458.2 10284 g 119 mm[Hg] 50 mm[Hg] Seema Pizano [place] - [facility], 5 10:24:27 Date Recorded Body weight Body height Body mass index (BMI) Heart rate Systolic blood pressure Diastolic blood pressure Provider Name and Address Organization Details Last Updated DateTime 5 04748.0 53011 g 167.64 cm 24.8 kg/m2 67 /min 104 mm[Hg] 61 mm[Hg] Seema Chance in [facility], 5 13:16:25 Date Recorded Body height Body weight Heart rate Body mass index (BMI) Systolic blood pressure Diastolic blood pressure Provider Name and Address Organization Details Last Updated DateTime 5 167.64 cm 78006.6 85321 g 73 /min 23.7 kg/m2 103 mm[Hg] 50 mm[Hg] Beth Chance in [facility], 5 14:49:18 Date Recorded Heart rate Body weight Body mass index (BMI) Body height Systolic blood pressure Diastolic blood pressure Provider Name and Address Organization Details Last Updated DateTime 5 86 /min 15107.0 4024 g 24.5 kg/m2 167.64 cm 116 mm[Hg] 69 mm[Hg] Beth Chance in [facility], 5 14:16:01 Date Recorded Body height Body weight Body mass index (BMI) Heart rate Systolic blood pressure Diastolic blood pressure Provider Name and Address Organization Details Last Updated DateTime 6 167.64 cm 46991.1 4 g 24.2 kg/m2 75 /min 136 mm[Hg] 79 mm[Hg] Seema Chance in [facility], 6 13:04:56 Social History Question Answer Notes LastModified by Organizat ion Details LastModified Time Tobacco Smoking Status Never Smoker Not Available [facility] 04/22/2020 03:19:39 What Is Your Level Of Alcohol Consumption? Moderate [id number] Information not available 04/22/2020 What Is Your Level Of Caffeine Consumption? Occasional [id number] Information not available 04/22/2020 What Type Of Diet Are You Following? REGULAR [id number] Information not available 04/22/2020 Which Illicit Or Recreational Drugs Have You Used? No [id number] Information not available 04/22/2020 Do You Reside In Or Have You Traveled To An Area Where Ebola Virus Transmission Is Active? 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 0 Information no t available 03/30/2016 High Number Of Sexual Partners No Information not available 03/30/2016 To Which Gender Do You Self-identify? Female Information not available 03/30/2016 Marital Status [email or web address] Informatio n not available 01/01/2013 Are You Sexually Active? Yes [id number] Information not available 04/22/2020 How Much Tobacco Do You Smoke? No [id number] Information not available 04/22/2020 General Stress Level High Information not available 01/01/2013 How Many Years Have You Smoked Tobacco? 0 [id number] Information not available 04/22/2020 Have You Recently (within The Last 12 Weeks, Or During A Current ) Traveled To Or Lived In A Zika-affected Area? No Information not available 03/30/2016 Sex: Unknown Functional Status Question Answer Note LastModified by Organizat ion Details LastModified Time What is your exercise level? Occasional [id number] Information not available 04/22/2020 Mental Status None [...] unspecified formulation 3 completed JAY Stanley in [facility], 01/01/2013 11:40:33 Pneumococcal Conjugate, unspecified formulation 6 completed JAY Stanley in [facility], 03/30/2016 13:06:36 zoster live 6 completed JAY Stanley in [facility], 03/30/2016 13:06:56 Past Encounters Encounter ID Performer Location Encounter Start Date Encounter Closed Date Diagnosis/Indication Diagnosis SNOMED-CT Code Diagnosis ICD10 Code Diagnosis Note [id number] Seema ADKINS MD [address] [place] [address] 01/01/2013 11:12:02 01/02/2013 08:07:12 [id number] Seema ADKINS MD [address] [place] [address] 01/09/2013 13:00:21 01/10/2013 09:29:51 [id number] Seema ADKINS MD [address] [place] [address] 01/08/2014 12:46:45 01/08/2014 13:44:32 Screening for malignant neoplasm of cervix 660969603 Screening mammography 49207957 Menopausal syndrome 652292186 Atrophic vaginitis 31092343 Family his tory of genetic disorder carrier 553914313 [id number] Seema Harinder ADKINS MD [address] [facility],[place] [address] 06/14/2014 08:31:45 06/14/2014 09:54:49 Dysuria [id number] Beth Minor SARAH ADKINS MD [address] [facility],[place] [address] 11/01/2014 10:09:00 11/01/2014 13:12:24 Acute lower urinary tract infection 569276383 Cyst of ovary 15870598 [id number] SARAH ADKINS MD [address] [place] [address],[place] [address] 11/12/2014 13:11:35 11/12/2014 16:03:17 Dysuria 73824959 [id number] SARAH ADKINS MD [address] [facility],[place] [address] 11/25/2014 14:38:36 11/26/2014 08:02:59 Dysuria 10337433 Atrophic vaginitis 27464283 [id number] SARAH ADKINS MD [address] [facility],[place] [address] 01/28/2015 14:08:30 01/29/2015 08:26:54 Screening mammography 02724895 Screening for malignant neoplasm of cervix 408821430 [id number] MD SARAH Ash MD [address] [facility],[place] [address] 03/30/2016 12:56:35 03/30/2016 14:16:18 Cyst of ovary 84910345 N83.201 Family his tory of genetic disorder carrier 641286670 Z84.81 Health Concerns Section Related Observation LastModified by Organization Detai ls LastModified Time None Recorded Concern Status LastModified by Organization Details LastModified Time None Recorded Advance Directives Directive None Recorded Payers Encounter Date Sequence Insurance Name Policy Number Policy Berrios Covered Member ID Berrios Member ID Guarantor Name 11/01/2014 1 [facility] - MEDICARE PREFERRED (MEDICARE REPLACEMENT HMO) GEOVANNY Ramirez [id number] Benjamin Zimmerman 11/12/2014 1 [facility] - MEDICARE PREFERRED (MEDICARE REPLACEMENT HMO) GEOVANNY franklin James [id number] ValeLuis Alberto Erasmo 11/25/2014 1 [facility] MEDICARE PREFERRED (MEDICARE REPLACEMENT HMO) GEOVANNY franklin James [id number] Benjamin Erasmo 01/28/2015 1 [facility] - MEDICARE PREFERRED (MEDICARE REPLACEMENT HMO) GEOVANNY franklin James [id number] ValeDillon Erasmo 03/30/2016 1 [facility] - MEDICARE PREFERRED (MEDICARE REPLACEMENT HMO) GEOVANNY Sorianokle [id number] Benjamin Zimmerman Notes Date Note Type Note [...] peritoneal inclusion cysts Sarah Adkins MD [address] [facility],[address], [place], [address], [place] - [facility], 03/30/2016 14:17:41 OBGyn Episode No OBEpisode recorded.
--- OUTSIDE RECORDS SUMMARY | 2024-10-15 15:33 | XMS_ITS | Clinical Summary ---
Author Organization [facility] Address [address] [place] [address] Phone Care Team Providers Care Client Representative Name Role Phone Jimbo Hopkins Primary Care Provider [phone] Allergies No known active allergies Medications oxyCODONE (OXY-IR) 5 mg immediate release capsule Take 1 capsule (5 mg total) by mouth every 6 (six) hours if needed for severe pain. Max Daily Amount: 20 mg 30 capsule 07/24/2024 Active Encounters Date Type Department Care Team Description 08/22/2024 11:45 AM EST Office Visit Orthopedic [facility] [address] [facility] [address] [place] [phone] Presley Pandey MD History of fracture (Primary Dx); Closed Colles' fracture of right radius with malunion, subsequent encounter 08/07/2024 4:00 PM EST Office Visit Orthopedic [facility] [address] [facility] [address] [place] [phone] Presley Pandey MD Right wrist pain (Primary Dx); Closed extra-articular fracture of distal end of right radius with malunion, subsequent encounter 07/31/2024 1:45 PM EST Office Visit Orthopedic [facility] [address] [facility] [address] [place] [phone] Presley Pandey MD Follow-up exam (Primary Dx); Closed extra-articular fracture of distal end of right radius with malunion, subsequent encounter 07/24/2024 11:30 AM EST Office Visit Orthopedic Surgery [facility] [address] [facility] [address] [place] [phone] Presley Pandey MD Right wrist pain (Primary Dx); Closed fracture of right distal radius and ulna, initial encounter 07/23/2024 1:56 AM EST - 07/23/2024 7:08 AM EST Emergency [facility] Emergency [address] [place] [phone] Glenroy Palacio MD Closed fracture of right wrist, initial encounter (Primary Dx) Discharge Disposition: Home or Self Care 07/23/2024 Telephone Orthopedic Surgery [facility] [address] [facility] [address] [place] [phone] [facility] from Last 3 Months Social [...] 5 season) 2024 05/29/2021, 11/05/2020 Influenza Vaccine (Season Ended) 2025 06/20/2012, 03/12/2011 HIB Vaccines Aged Out No longer [...] FRACTURE W/MANIPULATION Routine 07/23/2024 6:26 AM EST [place] CLOSED TX DISTAL RADIUS FRACTURE/EPIPHYSEAL SEPARATION W/ [...] to verify the correct patient, procedure, equipment, is support analyst and site/side marked as required Injury Location [...] procedure well with no immediate complications Presley Pnadey MD IN CLINIC/BEDSIDE ORDERABLES Fin al Result [...] IN CLINIC/BEDSIDE ORDERABLES Fin al Result * [place] CLOSED TX DISTAL RADIUS FRACTURE/EPIPHYSEAL SEPARATION W/ [...] yes ?Risks discussed: ??Pain and nerve damage Smoot protocol: ??Procedure explained and questions answered to [...] Final Result from Last 3 Months Insurance MEDICARE [facility] Care Teams Client Representative Relationship Specialty Start Date End Date Jimbo Hpokins DO [address] [place], [place] PCP - General Family Medicine 05/28/24
--- OUTSIDE RECORDS SUMMARY | 2024-10-15 15:33 | XMS_ITS | Clinical Summary ---
Author Organization [facility] Address [address] [facility] [address] [place] [address] Phone Care Team Providers Care Firearms Specialist Name Role Phone HopkinsSundary Karie MADISON Primary Care Provider [phone] Allergies Active Allergy Reactions Criticality Noted Date [...] (09/12/2020): Added automatically from request for surgery [id number] Gastroesophageal reflux disease 04/23/2014 09/12/2020 Overview (09/12/2020): [...] nasal fluticasone) and GERD (on Nexium). Immunizations Immunization Administration Dates Next Due Influenza Split 03/12/2011 [...] Due Date Last Done Comments Pneumococcal Vaccine: 50+ Ye ars (2 of 2 - PPSV23) 06/27/2015 05/02/2015 Influenza Vaccine (Season Ended) 2025 03/12/20 11 Pneumococcal Vaccine: Peds ( 0 to 5 Years) and At-Risk Patients (6 to 49 Years) Discontinued 05/02/2015 Hepatitis B Vaccine Aged Out No longe r eligible based on patient's age to complete this topic Insurance [facility] Medicare [facility] Medicare Care Teams Firearms Specialist Relationship Specialty Start Date End Date Jimbo Hopkins DO [address] [place] [address] PCP - General 06/30/20
--- OUTSIDE RECORDS SUMMARY | 2024-10-15 15:33 | XMS_ITS | Data Portability ---
Author Organization [place] [facility] Address [address] [place] [address] Care Team Providers Care Dressage Instructor Name Role Phone GRANT GRAVES Primary Care Provider Assessment Encounter Date Assessment Date Assessment LastModified [...] fever, Time On Scene with Patient: 00:28:43 [email or web address] Not available 07/12/2021 12:19:07 Plan of Treatment Reminders Order Date Submit Date Provider Last Modified By Organization Details Last Modified Time Details Appointments None recorded. Lab unlisted lab - covid-19 (novel coronavirus ) PCR 2021 pofodile [facility] (Centralized Electronic Ordering - All Locations), Patient Can Go To The Location Of Their Choice, [address] 17:39:56 Referral None recorded. Procedures None recorded. Surgeries None recorded. Imaging XR, chest, 2 view - r/o pneumonia, fever 101. cough 2021 [facility] ([facility] [employer]), [address] [facility], [place], [address], 22:18:57 Medication Orders benzonatate 200 mg capsule 2021 [facility]armacy #1972, [address] [place] [address], [address], 12:20:01 benzonatate 200 mg capsule 2021 [facility]/Pharmacy #1972, [address] [place], [address], 12:19:59 amoxicillin 875 mg-potassiu m clavulanate 125 mg tablet 2021 [facility]/Pharmacy #1972, [address] [place] [address], [address], 11:49:18 Patient TargetsNo targets recorded. Patient InstructionsNo [...] Disea se Contr ol and preve ntion ([facility]) pre depar ture and arriv al requi [...] using the follo wing websi diana: https ://ww w.que stdia gnost ics.c om/ho me/Co vid-1 9/HCP /Ques tIVD/ fact- sheet .html https ://ww w.que stdia gnost ics.c om/ho me/Co vid-1 [...] rized by FDA for COVID -19 testi ng dinesh d be cauti ously evalu ated and take extra preca ution s such as addit ional clini bear monit oring , inclu ding colle ction of an addit ional speci men. = Addit ional infor mathew franklin about COVID -19 can be found at the [employer] o[employer] websi te: www.The 517 travel uestD Achie[employer]) [employer]/ Covid 19. Test Perfo rmed by: [employer], [address], [place]. [address] . Labor atory Direc tor: Dian ramirez MD. Not Available [facility] (Centralized Electronic Ordering - All Locations) Patient Can Go To The Location Of Their Choice, [id number] 07/16/2021 00:03:28 07/15/19 22 XR, chest , 2 view No observ ation record ed. [address] [facility] (a [employer]) [address] [place], [address], 07/16/2021 17:56:20 Result Notes None recorded. Procedures Surgical History None recorded. Imaging Results Imaging Date Name Status LastModified by Organiz ation Details LastModified Time 07/15/2021 XR, chest, 2 view completed [place] [address] Corporate Office ([employer]) [address] [place], [address], 07/16/2021 17:56:20 Procedure Notes None recorded. Medical [...] Never Smoker CARINA Tan [address], [place], [address], [place] [facility] 07/12/2021 11:36:43 What Is Your Level Of Alcohol Consumption? Occasional [email or web address] Information not available 07/12/2021 What Is Your Code Status? Full Code [email or web address] Information not available 07/12/2021 Within The Past 12 Months, Has It Happened That The Food You Bought Just Didn't Last And You Didn't Have Money To Get More. No [email or web address] Information not available 07/12/2021 Within The Past 12 Months, Have You Worried That Your Food Would Run Out Before You Got Money To Buy More. No [email or web address] Information not available 07/12/2021 Fall Risk: Do You Feel Unsteady When Standing Or Walking? No [email or web address] Information not available 07/12/2021 We Know That How And When People Interact With Friends And Family Can Be Very Different From Person To Person. How Often Do You Have The Opportunity To See Or Talk To People That You Care About And Feel Close To? (Ex: Talking To Friends On The Phone Or Visiting Friends Or Family Or Going To Jain Or Club Meetings) 5 Or More Times Per Week [email or web address] Information not available 07/12/2021 Excessive Alcohol Or Drug Use No [email or web address] Information not available 07/12/2021 Does This Patient Have A PCP? Yes [email or web address] Information not available 07/12/2021 We Know From Many Of Our Patients That Covering All Of Their Costs Can Be Difficult At Times. This Can Cause Stress And Impact Health. In The Past Year, Have You Been Unable To Get Any Of The Following When It Was Really Needed? No [email or web address] Information not available 07/12/2021 Would You Like Help Connecting To Resources? None [email or web address] Information not available 07/12/2021 Do You Use Any Illicit Or Recreational Drugs? No [email or web address] Information not available 07/12/2021 Do You Or Have You Ever Used Any Other Forms Of Tobacco Or Nicotine? No Information not available 07/12/2021 Sex: Unknown Functional [...] SNOMED-CT Code Diagnosis ICD10 Code Diagnosis Note [id number] CARINA Tan [facility] [address] [facility] [place] [address] 07/12/2021 11:18:52 07/15/2021 08:46:46 Acute left otitis media 557669395 H66.92 increase fluids take antibiotic as directed. Fever 064621139 R50.9 tylenol for fever, increase fluids, restMucine x for sinus/ches t congestion . 1200 mg tablets twice a dayGiven ED precaution s Exposure t o communicable disease 004336403 Z20.822 will call you if the COVID test is positive, we will not call you if negative. Dry cough 01276236 R05.9 dry cough and temperatur e of [...] ID Guarantor Name 07/12/2021 1 MEDICARE B-[place]: [employer] Vale Bills Erasmo [id number] 2 Vale Kolb Erasmo 07/12/2021 2 [facility] (MEDICARE SUPPLEMENT) Vale Bills Erasmo [id number] Vale Kolb Erasmo Notes Date Note Type [...] cough, dry, CARINA Tan [address], [place], [address], [place] [facility] 07/14/2021 11:16:49 OBGyn Episode No OBEpisode recorded.
== END 2024-10-15 13:24 | disposition home or self-care (01) ==
LOC: HO.PMC 12:58
PROVIDERS: Visit Provider Internal Medicine
DX: M47.816 Spondylosis without myelopathy or radiculopathy, lumbar region (principal); M79.10 Myalgia, unspecified site
CPT/HCPCS: 99213

== ENCOUNTER → 2024-10-15 12:57 | Outpatient (BNVA) | payer MEDICARE, OTHER, SELFPAY | PROVIDERS: Visit Provider Internal Medicine | DX: M47.816 Spondylosis without myelopathy or radiculopathy, lumbar region (principal); M79.10 Myalgia, unspecified site | CPT/HCPCS: 99212 ==

== ENCOUNTER 2024-11-28 14:30 | Outpatient (RCR) | payer MEDICARE, OTHER, SELFPAY ==
--- NOTE | 2024-09-04 15:33 | MHC.OT.EP ---
[address] [phone] Occupational Therapy Plan of Care Patient Name: Vale Zimmerman Date of Evaluation: 09/04/24 Diagnosis: Right distal radius fx Pain Location: Pain in right wrist, radiating to right thumb Pain Score: 8 Pain Scale Used: Numeric (0 - 10) Aggravating Factors: Grasping, lifting, bending fingers Alleviating Factors: Rest Assessment: Benjamin is a 79 year old left hand dominant woman referred to OT s/p right distal radius fracture sustained by slip and fall on ice on 07/23/24. Pt is wearing a removable wrist brace for 2 more weeks then has f/u with Dr. Banegas. Pt currently presents with pain, significant stiffness, and functional limitations in the right wrist and digits. She reports difficulty using her right hand for ADLs/IADLs, impacting her ability to perform caregiving tasks for her with Parkinson?s. Her Quick DASH score of 65.9% indicates significant disability. Ortho Rn strength is severely reduced at 5# on the right vs. 30# on the left. Pt would benefit from skilled OT services to address noted barriers and normalize hand function. Frequency and Duration: The patient will be seen 2x/wk for 6 weeks Short Term Goals: Decrease R wrist pain <4/10 with activity Improve R wrist flex/ext by >10 degrees each Demo improved FMC by successfully completing tasks such as handwriting, buttoning, and managing small objects Top Frame Fitter Goals: Pain free R wrist with activity Improve R wrist flexion/ext to >40 degrees Increase hand packer/packager strength to at least 20# to improve ability to manage caregiving and household tasks Improve Quick DASH score by at least 20% to reflect functional progress Treatment Plan: Therapeutic Exercise Therapeutic Activity Home Exercise Program Patient Education Edema Control ADL Training Paraffin MHP Soft Tissue Mobilization Kinesiotaping Electronically Signed By: Shanta Crews MS OTR/L Please Sign and return to therapist. Thank you once again for your referral.
--- NOTE | 2024-09-26 07:47 | MHC.OT.OP ---
[address] [phone] F: [phone] Occupational Therapy Progress Note Patient Name: Vale Zimmerman Diagnosis: Right distal radius fx Date of Evaluation: 09/04/24 Treatments to Date: 6 Subjective: I was able to clip my bra using this hand. It's getting better but my wrist still hurts all the time. Pain Score: 7 Pain Location: R wrist Objective Measures: Right wrist Flexion: 50 degrees Extension: 42 degrees Radial deviation: 10 degrees Ulnar deviation: 20 degrees Right gross grasp: 12# Left gross grasp: 25# Functional Dexterity Test R: 29.7 seconds L: 26.2 seconds Assessment: Vale Kolb is currently 8 weeks status post right distal radius fracture. She is progressing fairly well in therapy overall, but continues to report persistent ulnar-sided wrist pain rated 7/10, especially with painting manager and functional use. Pt is beginning to wean from wrist brace and is compliant with ROM exercises and tendon glides at home. OT plan is to continue conservative treatment with focus on gradual strengthening and functional activity tolerance and progress per MD recommendations. Short Term Goals: Decrease R wrist pain <4/10 with activity Improve R wrist flex/ext by >10 degrees each Demo improved FMC by successfully completing tasks such as handwriting, buttoning, and managing small objects Group Home Goals: Pain free R wrist with activity Improve R wrist flexion/ext to >40 degrees Increase painting manager strength to at least 20# to improve ability to manage caregiving and household tasks Improve Quick DASH score by at least 20% to reflect functional progress Frequency and Duration: The patient will be seen 2x/wk for 6 weeks Treatment Plan: Therapeutic Exercise Therapeutic Activity Home Exercise Program Patient Education Edema Control ADL Training Paraffin MHP Soft Tissue Mobilization Kinesiotaping Electronically Signed By: Shanta Crews MS OTR/L Reviewed/agree with student documentation: Therapist:
--- NOTE | 2024-11-28 15:17 | MHC.OT.DC ---
[address] [phone] F: [phone] Occupational Therapy Discharge Note Patient Name: Vale Zimmerman Provider: Rossana Banegas Diagnosis: Right distal radius fx Date of Evaluation: 09/04/24 Date of Discharge: 11/28/24 Treatments to Date: Discharge Status: Discharge Summary: Vale has progressed very well in OT and met all LTG's set on admission. She is pain free at rest with occasional ulnar side wrist pain with lifting and prolonged use. Right material spreader strength improved to 25# (from 5#) and her baseline is 25# on the left dominant hand. Quick DASH score improved from 65% disability to 9.1%. She remains somewhat limited in wrist extension ~40 degrees although she has made progress and remains consistent with home stretching and strengthening program. At this time, pt. is IND with all exercises and in agreement with discharge. Thank you for this referral. Electronically Signed By: Shanta Crews MS OTR/L Reviewed/agree with student documentation: Therapist: Please Sign and return to therapist, thank you for your referral.
== END 2024-11-28 15:20 | disposition home or self-care (01) ==
LOC: HO.OTS 14:30
PROVIDERS: Visit Provider Orthopaedic Surgery
DX: S52.501D Unspecified fracture of the lower end of right radius, subsequent encounter for closed fracture with routine healing (principal); M25.641 Stiffness of right hand, not elsewhere classified
CPT/HCPCS: 97110; 97140; 97165

== ENCOUNTER 2024-12-25 10:34 | Outpatient (REF) | payer MEDICARE, OTHER, SELFPAY ==
--- NOTE | ~2024-12-25 | XR_ITS ---
EXAMINATION: XR WRIST, RIGHT CLINICAL INFORMATION: M25.531 - Pain in right wrist COMPARISON: August 29 and August 01, 2024 TECHNIQUE: PA, lateral, and oblique views of the right wrist. FINDINGS: There is continued healing of a mildly impacted distal radial f metaphyseal fracture. Fracture line is minimally visible. There is remodeling of the cortical contours. There is +2 millimeter ulnar variance, posttraumatic. 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 XR/XR wrist RT min 3V IMPRESSION: Healing distal radial fracture with remodeling. Nonunion of an ulnar styloid fracture. Posttraumatic +2 mm ulnar variance. Mild osteoarthritis of the first ray. Electronically signed by: Aden Perkins MD 12/25/2024 03:12 PM EDT
--- OUTSIDE RECORDS SUMMARY | 2024-12-26 11:34 | XMS_ITS | Clinical Summary ---
Author Organization [facility] Address [address] [place] [address] Phone Care Team Providers Care Dust Box Worker Name Role Phone Jibmo Hopkins Primary Care Provider [phone] Allergies No known active allergies Medications oxyCODONE [...] PM EDT Appointment [facility] [address] [address] Health Maintenance Due Date Last [...] patient's age to complete this topic Insurance [facility] [place] [address] MEDICARE [facility] Care Teams Dust Box Worker Relationship Specialty Start Date End Date Jimbo Hopkins DO [address] [place], [place] PCP - General Family Medicine 05/28/24
--- OUTSIDE RECORDS SUMMARY | 2024-12-26 11:34 | XMS_ITS | Clinical Summary ---
Author Organization [facility] Address [address] [facility] [address] [place] [address] Phone Care Team Providers Care Control Clerk Repairs Name Role Phone HopkinsSundary Karie MADISON Primary Care Provider [phone] Allergies Active Allergy Reactions Criticality Noted Date [...] (09/12/2020): Added automatically from request for surgery [id number] Gastroesophageal reflux disease 04/23/2014 09/12/2020 Overview (09/12/2020): [...] patient's age to complete this topic Insurance [facility] Medicare [facility] Medicare Care Teams Control Clerk Repairs Relationship Specialty Start Date End Date Jimbo Hopkins DO [address] [place] [address] PCP - General 06/30/20
== END 2024-12-25 10:35 | disposition home or self-care (01) ==
LOC: HO.HOSX 10:34
PROVIDERS: Visit Provider Orthopaedic Surgery
DX: S52.501D Unspecified fracture of the lower end of right radius, subsequent encounter for closed fracture with routine healing (principal); M25.641 Stiffness of right hand, not elsewhere classified; R20.0 Anesthesia of skin; R20.2 Paresthesia of skin; M25.531 Pain in right wrist
CPT/HCPCS: 73110; 99212

== ENCOUNTER 2024-12-25 14:51 | Outpatient (AMB) | payer MEDICARE, OTHER, SELFPAY ==
[2024-12-25 15:11] VITALS: BMI 26.6
--- NOTE | 2024-12-25 15:11 | A.OFFVIS_ITS ---
Vital Signs 12/25/24 15:11 Height 5 ft 3 in Weight 150 lb BMI 26.6 Intake Visit Reasons: OV- RT wrist fx DOI 07/23/24 f/u Intake Note: Benjamin 79 yr old right hand dominant female presents today for her follow up visit for her right hand distal radius fracture from 07/23/24 ROM check. States she is doing well with her ROM however she still has mild pain with certain m ovements of the wrist. Allergies No Known Allergies Allergy (Verified 12/25/24 15:15) HPI HPI OV- RT wrist fx DOI 07/23/24 f/u: Details: Benjamin is a 79 year old right hand dominant woman who returns for a right distal radius fracture, S/P fall on ice, DOI: 07/23/24. This was managed by [facility] but she does not wish to continue care with them. She was last seen on ~08/20/24 for cast removal before having her records transferred over here. She is here for a ROM check She says she is doing better, and has been attending OT hand therapy in [place], as well as working on ROM exercises at home. She says she still has some ulnar-sided wrist pain with some activities & certain motions. She also complains of numbness in her right thumb & index finger. Symptoms constant to the tip of her fingers, and does not change with activities or at night. She says she cares for her disabled at home. [facility] Medical History (Updated 12/25/24 @ 15:22 by Arthur Sullivan) Lumbar spondylosis Social History Current occupational status: retired Physical Exam Vital Signs: BMI result Body Mass Index 26.6 Const General: no acute distress and alert Orientation/consciousness: patient oriented x3 Neuro General: patient oriented x3 Extrem Other: Evaluation of Right Upper Extremity: The patient is alert, oriented, and in no acute distress She has some numbness in the right index finger and thumb. Normal sensation to the other digits. She says that this does not change, and is not worse at night or with activities. ROM: She does have now only some mild stiffness in her finger joints, secondary to osteoarthritis She could bring her fingers closed to a fist and back into full extension Wrist ROM: Some improvement seen and wrist flexion and extension compared with last visit. ~75 degrees pronation ~70 degrees supination ~60 degrees flexion ~75 degrees extension Her fracture is completely nontender and the DRUJ is stable. Radiographs: 3 views of the right wrist were taken and viewed by me today in clinic. They show a distal radius fracture, transverse with intra-articular extension, with some shortening and loss of inclination on the AP view & ~22 degrees apex volar angulation seen on the lateral view. There is some evidence of interval bony healing. Psych Appearance: grossly normal Affect: normal affect Attitude: cooperative Assessment & Plan Assessment & Plan (1) Fracture of right distal radius: Code(s): S52.501A - Unspecified fracture of the lower end of right radius, initial encounter for closed fracture Category: Medical (2) Stiffness of right hand joint: Code(s): M25.641 - Stiffness of right hand, not elsewhere classified Category: Medical (3) Numbness and tingling in right hand: Code(s): R20.0 - Anesthesia of skin; R20.2 - Paresthesia of skin Category: Medical (4) Right wrist pain: Code(s): M25.531 - Pain in right wrist Category: Medical Plan Assessment & Plan: 1. Right distal radius fracture, From a fall, DOI: 07/23/24 Reduced at [facility] and managed in a cast until [facility] & doing well on radiographs 2. Right wrist pain This appears to be improving. Now it is really only when she is bring her wrist into hyper extension against resistance or full flexion I educated her about this condition I recommend she continue to work on gentle stretching exercises daily She should be mindful to not overuse her wrist with daily activities She can follow up prn 3. Right hand numbness To the tip of the thumb & index finger Symptoms constant throughout the day I educated her about carpal tunnel syndrome, and recommended a nerve conduction study. She would like to hold off on a nerve conduction study for now. She can follow up prn 4. Right hand stiffness With good improvement since last visit She is doing well & her ROM has improved She should continue to work on ROM exercises at home. Scribed for Rossana Bnaegas MD by Arthur Sullivan medical device assembler, on 12/25/24 at 3:20 PM, EST. Orders: Orders XR wrist RT min 3V Today M25.531 - Pain in right wrist Coding Level of Care Code Est Pt Level 3 (29239) Diagnoses Fracture of right distal radius S52.501A Stiffness of right hand joint M25.641 Numbness and tingling in right hand R20.0; R20.2 Right wrist pain M25.531
--- OUTSIDE RECORDS SUMMARY | 2024-12-25 15:40 | XMS_ITS | Clinical Summary ---
Author Organization [facility] Address [address] [place] [address] Phone Care Team Providers Care Assessment Specialist Name Role Phone Jimbo Hopkins Primary Care Provider [phone] Allergies No known active allergies Medications oxyCODONE (OXY-IR) 5 mg immediate release capsule Take 1 capsule (5 mg total) by mouth every 6 (six) hours if needed for severe pain. Max Daily Amount: 20 mg 30 capsule 07/24/2024 Active Social History Tobacco Use Types Packs/Day Years [...] 90 07/23/2024 1:43 AM EST Temperature 36.3 C (97.3 F) 07/23/2024 1:43 AM EST Respiratory Rate 18 07/23/2024 1:43 AM EST Oxygen Saturation 97% 07/23/2024 1:43 AM EST Inhaled Oxygen Concentration - - Weight 65.8 kg (145 lb) 08/22/2024 11:49 AM EST Height 170.2 cm (5' 7 ) 08/22/2024 11:49 AM EST Body Mass Index 22.71 08/22/2024 11:49 AM EST Plan of Treatment Upcoming Encounters Date Type Department Care Team (Late st Contact Info) Description 01/28/2025 2:30 PM EDT Appointment [facility] [address] [address] Health Maintenance Due Date Last Done Comments [...] season) 2024 05/29/2021, 11/05/2020 Influenza Vaccine (#1) 2025 3, 03/12/2011 HIB Vaccines Aged Out No [...] patient's age to complete this topic Insurance [place] [address] MEDICARE [facility] Care Teams Assessment Specialist Relationship Specialty Start Date End Date Jimbo Hopkins DO [address] [place], [place] PCP - General Family Medicine 05/28/24
--- OUTSIDE RECORDS SUMMARY | 2024-12-25 15:40 | XMS_ITS | Data Portability ---
Author Organization [facility] Address [address] [place] [address] Care Team Providers Care Budget Specialist Name Role Phone GRANT GRAVES Primary Care Provider [phone] Assessment Encounter Date Assessment Date Assessment LastModified [...] fever, Time On Scene with Patient: 00:28:43 [email or web address] Not available 07/12/2021 12:19:07 Plan of Treatment Reminders Order Date Submit Date Provider Last Modified By Organization Details Last Modified Time Details Appointments None recorded. Lab unlisted lab - covid-19 (novel coronavirus ) PCR 2021 [facility] (Centralized Electronic Ordering - All Locations), Patient Can Go To The Location Of Their Choice, [address] 17:39:56 Referral None recorded. Procedures None recorded. Surgeries None recorded. Imaging XR, chest, 2 view - r/o pneumonia, fever 101. cough 2021 [facility] ([facility] [employer]), [address] [facility], [place], [address], 22:18:57 Medication Orders benzonatate 200 mg capsule 2021 [facility]/Pharmacy #1972, [address] [place] [address], [address], 12:20:01 benzonatate 200 mg capsule 2021 [facility]/Pharmacy #1972, [address] [place], [address], 12:19:59 amoxicillin 875 mg-potassiu m clavulanate 125 mg tablet 2021 [facility]armacy #1972, [address] [place], [address], 11:49:18 Patient TargetsNo targets recorded. Patient InstructionsNo [...] Disea se Contr ol and preve ntion ([facility]) pre depar ture and arriv al requi [...] the follo wing websi diana: https ://marie w.adilene stdia gnost ics.c om/ho me/Co vid-1 9/HCP [...] speci men. = Addit ional infor mathew n about COVID -19 can be found at the [employer] websi te: www.WebLinc uestD [employer]/ Covid 19. Test Perfo rmed by: [employer], [address], [place]. [address] . Labor atory Direc tor: Dian ramirez MD. Not Available [facility] (Centralized Electronic Ordering - All Locations) Patient Can Go To The Location Of Their Choice, [address] 07/16/2021 00:03:28 07/15/19 22 XR, chest , 2 view No observ ation record ed. [email or web address] [facility] Corporate [facility] ([employer]) [address] [facility], [place], [address], 07/16/2021 17:56:20 Result Notes None recorded. Medical Equipment None Reported. [...] Pulse oximetry Heart rate Respiratory rate Systolic And Diastolic Provider Name and Address Organization Details Last Updated DateTime 2 101.1 [degF] 96 % 96 % 76 /min 16 /min 124/80 mm[Hg] Not Available [facility] 11:38:51 Social History Question Answer Notes LastModified by Organizat ion Details LastModified Time Tobacco Smoking Status Never Smoker CARINA Tan [address], [place], [address], [place] [facility] 07/12/2021 11:36:43 What Is Your Code Status? Full Code [email or web address] Information not available 07/12/2021 Within The Past 12 Months, Has It Happened That The Food You Bought Just Didn't Last And You Didn't Have Money To Get More. No Information not available 07/12/2021 Within The Past 12 Months, Have You Worried That Your Food Would Run Out Before You Got Money To Buy More. No [email or web address] Information not available 07/12/2021 Fall Risk: Do You Feel Unsteady When Standing Or Walking? No [email or web address] Information not available 07/12/2021 We Know That How And When People Interact With Friends And Family Can Be Very Different From Person To Person. How Often Do You Have The Opportunity To See Or Talk To People That You Care About And Feel Close To? (Ex: Talking To Friends On The Phone Or Visiting Friends Or Family Or Going To Nondenominational Or Club Meetings) 5 Or More Times Per Week [email or web address] Information not available 07/12/2021 Excessive Alcohol Or Drug Use No [email or web address] Information not available 07/12/2021 Does This Patient Have A PCP? Yes [email or web address] Information not available 07/12/2021 We Know From Many Of Our Patients That Covering All Of Their Costs Can Be Difficult At Times. This Can Cause Stress And Impact Health. In The Past Year, Have You Been Unable To Get Any Of The Following When It Was Really Needed? No [email or web address] Information not available 07/12/2021 Would You Like Help Connecting To Resources? None Information not available 07/12/2021 Sex: Unknown Functional Status Question Answer Note LastModified by Organizat ion Details LastModified Time Do you use any illicit or recreational drugs? No [email or web address] Information not available 07/12/2021 Do you or have you ever used any other forms of tobacco or nicotine? No Information not available 07/12/2021 What is your level of alcohol consumption? Occasional [email or web address] Information not available 07/12/2021 Mental Status None recorded. Family History Nothing Reported Notes:Father heart disease, Brother Colon cancer Medical History Condition Response Diabetes N Coronary Artery Disease N CHF N Parkinson's Disease N Cancer N Stroke N Dementia N Hypothyroidism N Asthma N COPD Depression N High Cholesterol Y Rheumatoid Arthritis N Pulmonary Embolism N Hypertension N Osteoporosis Y A-fib N Kidney Disease N Gynecological HistoryNo gynecological history recorded. Obstetrics History GPAL:G 0 P 0 0 0 0 Past Encounters Encounter ID Performer Location Encounter Start Date Encounter Closed Date Diagnosis/Indication Diagnosis SNOMED-CT Code Diagnosis ICD10 Code Diagnosis Note [id number] CARINA Tan [facility] - [address] [address] 07/12/2021 11:18:52 07/15/2021 08:46:46 Acute left otitis media [id number] H66.92 increase fluids take antibiotic as directed. Fever 702885378 R50.9 tylenol for fever, increase fluids, restMucine x for sinus/ches t congestion . 1200 mg tablets twice a dayGiven ED precaution s Exposure t o communicable disease 111280342 Z20.822 will call you if the COVID test is positive, we will not call you if negative. Dry cough 04237590 R05.9 dry cough and temperatur e of [...] Recorded Advance Directives Directive None Recorded Payers Insurance Date Sequence Insurance Name Policy Number Policy Berrios Covered Member ID Berrios Member ID Guarantor Name 07/15/2021 1 [place]ICARE B-[place]: [employer] Vale Zimmerman [id number] Vale Zimmerman 07/11/2021 1 *SELF PAY* Chaz Zimmerman [id number] Vale Zimmerman 07/15/2021 2 [facility] (MEDICARE SUPPLEMENT) Vale Zimmerman [id number] Vale Zimmerman Notes Date Note Type Note Provider [...] history of sinus infection.She has cough, dry, Lianne Derik, CARINA [address], [place], [address], [place] [facility] 07/14/2021 11:16:49 OBGyn Episode No OBEpisode recorded.
--- OUTSIDE RECORDS SUMMARY | 2024-12-25 15:40 | XMS_ITS | Clinical Summary ---
Author Organization [facility] Address [address] [facility] [address] [place] [address] Phone Care Team Providers Care Videotape Operator Name Role Phone HopkinsSundary Karie MADISON Primary Care Provider [phone] Allergies Active Allergy Reactions Criticality Noted Date [...] (09/12/2020): Added automatically from request for surgery [id number] Gastroesophageal reflux disease 04/23/2014 09/12/2020 Overview (09/12/2020): [...] 50+ Ye ars (2 of 2 - PPSV23, PCV20, or PCV21) 06/27/2015 05/02/2015 Influenza Vaccine (#1) 2025 03/12/2011 Pneumococcal Vaccine: Peds ( 0 to 5 Years) and At-Risk Patients (6 to 49 Years) Discontinued 05/02/2015 Hepatitis B Vaccine Aged Out No longe r eligible based on patient's age to complete this topic Insurance [facility] Medicare [facility] Medicare Care Teams Videotape Operator Relationship Specialty Start Date End Date Jimbo Hopkins DO [address] [place] [address] PCP - General 06/30/20
== END 2024-12-25 16:37 | disposition home or self-care (01) ==
LOC: HO.HOS 14:57
PROVIDERS: Visit Provider Orthopaedic Surgery
DX: S52.501A Unspecified fracture of the lower end of right radius, initial encounter for closed fracture (principal); M25.641 Stiffness of right hand, not elsewhere classified; R20.0 Anesthesia of skin; R20.2 Paresthesia of skin; M25.531 Pain in right wrist
CPT/HCPCS: 99213

== ENCOUNTER → 2024-12-25 15:01 | Outpatient (BNV) | payer MEDICARE, OTHER, SELFPAY | PROVIDERS: Visit Provider Radiology Diagnostic Radiology | DX: S52.611K Displaced fracture of right ulna styloid process, subsequent encounter for closed fracture with nonunion (principal) | CPT/HCPCS: 73110 ==